=== PATIENT | female | born 1970 | race Caucasian/White ===

== ENCOUNTER 2022-02-14 18:27 | Emergency (ER) | payer OTHER, SELFPAY ==
[2022-02-14 18:41] VITALS: BP 117/80; PULSE 98; RESP 18; TEMP 36.4; O2SAT 98; BMI 34.4
--- NOTE | 2022-02-14 19:50 | CRLHL7_ITS ---
For Patients: As a result of the Century Cures Act, medical imaging exams and procedure reports are released immediately into your electronic medical record. You may view this report before your referring provider. If you have questions, please contact your health care provider. HISTORY: Left leg pain and swelling. TECHNIQUE: Ultrasound of the left lower extremity deep veins using bojorquez-scale, color Doppler, and spectral Doppler. COMPARISON: None. FINDINGS: Left: Common femoral, femoral, and popliteal veins are patent and compressible with normal response to augmentation. Deep femoral vein is patent and compressible. - Posterior tibial vein is patent and compressible with normal response to augmentation. Peroneal vein is patent and compressible. - Proximal greater saphenous vein is patent and compressible. --- Right: Common femoral vein is patent and compressible with normal response to augmentation. IMPRESSION: No left lower extremity DVT. Dictated by Tyler Escobar MD @ 02/14/2022 8:48:44 PM (Electronically Signed)
--- NOTE | 2022-02-14 19:51 | ED_ITS ---
HPI - Extremity Injury (Lower) General Chief Complaint: Extremity Pain/Injury, Lower Stated Complaint: possible blood clot in L back knee Time Seen by Provider: 02/14/22 19:42 Source: patient Mode of arrival: ambulatory Limitations: no limitations History of Present Illness HPI Narrative: 51-year-old female presents to the emergency department 5 days postop from a back surgery, she proudly reports that this was her 54th surgery. She has been noticing 1 day of swelling and paresthesias behind her left knee with increasing tenderness, concerned with a possible blood clot. She has no prior history of DVT nor PE. Not noting any fever, no shortness of breath. She did not have paresthesias in this area prior to surgery. She does not take any anticoagulants. No joint swelling, no fall or injury. No tenderness in the knee itself. No swelling in the ankle, hip or other joints. She does have a notable history of peripheral neuropathy, type 2 diabetes, hypertension. For medications and allergies are quite extensive and reviewed in our medical records, she confirms that these are correct. Socially with no pertinent travel, recent hospital discharge noted because of outpatient surgery ROS is otherwise negative times 12 systems today per her report Related Data Home Medications Medication Instructions Recorded Confirmed Tagamet 02/14/22 clobetasol-emollient 0.05 % topical 02/14/22 topical cream cyclobenzaprine 10 mg tablet mg 02/14/22 duloxetine 30 mg capsule,delayed mg PO 02/14/22 release duloxetine 60 mg capsule,delayed mg PO 02/14/22 release exenatide microspheres 2 mg/0.85 mg subcut 02/14/22 mL subcutaneous auto-injector ([employer]) fluconazole 02/14/22 hydromorphone 4 mg tablet mg 02/14/22 lisinopril 10 mg tablet mg 02/14/22 melatonin 02/14/22 ondansetron 4 mg disintegrating mg 02/14/22 tablet pregabalin 50 mg capsule mg 02/14/22 rosuvastatin 5 mg tablet mg 02/14/22 topiramate 50 mg tablet mg 02/14/22 Allergies Allergy/AdvReac Type Severity Reaction Status Date / Time adhesive Allergy Unknown Verified 02/14/22 18:51 Esomeprazole Allergy Severe throat Uncoded 02/14/22 18:51 swelling Propanolol Allergy Severe seizure Uncoded 02/14/22 18:51 Fentanyl Allergy Intermediate Swelling Uncoded 02/14/22 18:51 of Lip/Tongue/Throat Hydrocodone Allergy Intermediate Uncoded 02/14/22 18:51 HYDROCODONE-ACETAMINOPHEN Allergy Intermediate itching Uncoded 02/14/22 18:51 Metronidazole Allergy Intermediate vomitting Uncoded 02/14/22 18:51 Oxycodone Allergy Intermediate Uncoded 02/14/22 18:51 ASPIRIN, BUFFERED Allergy Unknown Uncoded 02/14/22 18:51 CANINE PROTEIN CONTAINING Allergy Unknown Uncoded 02/14/22 18:51 PRODUCTS CATS (FUR, DANDER, SALIVA) Allergy Unknown Uncoded 02/14/22 18:51 DUST MITES Allergy Unknown Uncoded 02/14/22 18:51 HYALURONATE Allergy Unknown Uncoded 02/14/22 18:51 Maple flavor Allergy Unknown Uncoded 02/14/22 18:51 Metformin Allergy Unknown Uncoded 02/14/22 18:51 NITROIMIDAZOLES Allergy Unknown Uncoded 02/14/22 18:51 OXYCODONE-ACETAMINOPHEN Allergy Unknown Uncoded 02/14/22 18:51 Penicillin Allergy Unknown Uncoded 02/14/22 18:51 Primidone Allergy Unknown Uncoded 02/14/22 18:51 Propranolol Allergy Unknown Uncoded 02/14/22 18:51 Ragweed pollen Allergy Unknown Uncoded 02/14/22 18:51 SUNLIGHT Allergy Unknown Uncoded 02/14/22 18:51 PFSH PFSH Social History Smoking Status: Never smoker Do you use any of these nicotine containing products: None Second hand tobacco smoke exposure: No How often do you have a drink containing alcohol: never How often do you have six or more drinks on one occasion: Never AUDIT-C Alcohol total score: 0 Non-prescribed substance use: denies use service: No Exam Const: Vital Signs, click to edit/add: Vital Signs - 24 hr 02/14/22 18:41 Temperature 97.6 F Pulse Rate [Pulse Oximeter] 98 Respiratory Rate 18 Blood Pressure [Ri ght Upper Arm] 117/80 Pulse Oximetry 98 Oxygen Delivery Me thod Room Air Documenting provider has reviewed patient's vital signs: yes Common normals: no apparent distress General appearance: cooperative HENMT: Mouth: oral and palatal mucosa normal Throat: posterior oropharynx normal Eye: Common normals: conjunctivae normal and no scleral icterus Conjunctiva: conjunctiva(e) normal Resp: Common normals: normal respiratory effort and clear to auscultation bilaterally Effort & inspection: able to speak in complete sentences Auscultation: clear to auscultation bilaterally Cardio: Common normals: regular rate, regular rhythm, S1 normal heart sound, S2 normal heart sound and no murmurs Rate: regular rate Rhythm: regular rhythm Heart sounds: S1 normal and S2 normal Extremity: Other: right leg grossly normal in appearance, left leg is also grossly normal in appearance. The left knee has normal range of motion, no effusion, no redness. There is no palpable cords in either calf. Negative Homans bilaterally. Neuro: Other: Grossly normal strength and movement in lower extremities. Psych: Common normals: mental status grossly normal Insight: fair Judgement: fair Skin: Common normals: no rashes or lesions noted General skin exam: no rashes or lesions noted Course Vital Signs Vital signs: Initial Vital Signs Temperature 97.6 F 02/14/22 18:41 Temperature Source Temporal Artery Scan 02/14/22 18:41 Pulse Rate 98 02/14/22 18:41 Respiratory Rate 18 02/14/22 18:41 Blood Pressure 117/80 02/14/22 18:41 Blood Pressure Mean 92 02/14/22 18:41 Blood Pressure Position Sitting 02/14/22 18:41 Pulse Oximetry 98 02/14/22 18:41 Oxygen Delivery Method 02/14/22 18:41 Vital Signs Temperature 97.6 F 02/14/22 18:41 Pulse Rate 98 02/14/22 18:41 Respiratory Rate 18 02/14/22 18:41 Blood Pressure 117/80 02/14/22 18:41 Pulse Oximetry 98 02/14/22 18:41 Oxygen Delivery Method 02/14/22 18:41 Temperature 97.6 F 02/14/22 18:41 Pulse Rate 98 02/14/22 18:41 Respiratory Rate 18 02/14/22 18:41 Blood Pressure 117/80 02/14/22 18:41 Pulse Oximetry 98 02/14/22 18:41 Oxygen Delivery Method 02/14/22 18:41 MDM - Extremity Injury (Lower) MDM Narrative Medical decision making narrative: Differential diagnosis including DVT, paresthesias secondary to back surgery with radiculopathy, new area of peripheral neuropathy. Lower suspicion for any intra-articular problems within the knee or muscle strain. Counseled patient that I suspect that this is more surgically related and seems quite mild and with no motor deficits. I would recommend venous Doppler ultrasound added patient was agreeable for this. Awaiting results Update: Negative ultrasound of the lower legs, discussed findings with patient. Suspect that there is some mild neurological impingement inflammation postoperatively, do not suspect that this is worrisome nor long-term for her. She will notify her surgeon and let him know that the ultrasound was negative. Alarm symptoms reviewed and all questions answered. Imaging Data Venous US: My impression: Negative for DVT Radiologist's impression: Negative for DVT Discharge Plan Discharge Clinical Impression: Leg swelling Patient Disposition: Home w/ Parent or Adult Condition: Stable Instructions: Swollen Knee Joint (ED) Additional Instructions: Thankfully, the ultrasound does not show any signs of blood clot. This is great news. I suspect that the abnormal sensation and perceived swelling is more so related to healing after your surgery and some inflammation on the nerves that come from your back. I do not suspect that this will be long-term for you but you should notify your surgeon. Please make sure you let them know that the ultrasound was negative for blood clots. It is okay to apply ice or heat packs if this is soothing. Continue the pain medicines that you have previously been prescribed. Keep all of your follow-up appointment as are currently scheduled. Activity Level: Activity as Tolerated Discharge Diet: Regular Prescriptions: No Action cyclobenzaprine 10 mg tablet lisinopril 10 mg tablet Label Comments: TAKE 1 TABLET BY MOUTH EVERY DAY hydromorphone 4 mg tablet ondansetron 4 mg tablet,disintegrating clobetasol-emollient 0.05 % cream TOPICAL Label Comments: USE EVERY 3RD NIGHT rosuvastatin 5 mg tablet topiramate 50 mg tablet Label Comments: TAKE 1 TABLET BY MOUTH EVERY MORNING AND 3 TABLETS BY MOUTH EVERY EVENING duloxetine 30 mg capsule,delayed release(DR/EC) PO Label Comments: TAKE 1 CAPSULE BY MOUTH DAILY WITH 60 MG duloxetine 60 mg capsule,delayed release(DR/EC) PO Label Comments: TAKE 1 CAPSULE BY MOUTH DAILY WITH 30 MG DOSE pregabalin 50 mg capsule Label Comments: TAKE 1 CAPSULE BY MOUTH DAILY AT 5-6 PM AND 1 CAPSULE AT 9-10 PM Bydureon BCise 2 mg/0.85 mL auto-injector SUBCUT Label Comments: INJECT 0.85 ML SUBCUTANEOUS ONCE WEEKLY Tagamet fluconazole melatonin Follow Up/Referrals: Octaviano Tineo MD [Primary Care Provider] - Stand Alone Forms: [employer] Info Instructions
[2022-02-14 21:53] VITALS: BP 105/61; PULSE 81; RESP 16; O2SAT 98
== END 2022-02-14 21:54 | disposition home or self-care (01) ==
PROVIDERS: Emergency Provider Family Medicine; PCP Surgery
DX: R22.42 Localized swelling, mass and lump, left lower limb (principal)
CPT/HCPCS: 93971; 99282; 99283

== ENCOUNTER 2022-05-20 12:55 | Outpatient (CLI) | payer OTHER, SELFPAY ==
--- NOTE | 2022-05-20 13:00 | MR_ITS ---
[address] [address] Phone:?[phone] Fax:?[phone] Referring Physician Information: Irving Harrison M.D. [address] [facility] [address] Phone:?[phone] Fax:?[phone] Patient:Jessica Li D.O.B:?1970 Sex:?Female Phone:?[phone] [facility] MRN:?[id number] Exam Date:?05/20/2022 ? EXAM: MRI of the LEFT KNEE, without contrast CLINICAL: Left knee pain. COMPARISONS: None available. TECHNICAL: MR sequences of the left knee: sagittals: PD, PDFS coronals: PD, T2FS axials: PD, PDFS SEDATION: None. CONTRAST: None. FINDINGS: Evaluation of multiple sequences is relatively limited by motion artifact. Ligaments: ACL: Intact and unremarkable. PCL: Intact and unremarkable. MCL: Intact and unremarkable. LCL: Intact and unremarkable. Posterolateral corner: Popliteus, biceps femoris, iliotibial band, and the popliteofibular ligament appear intact. Posteromedial corner: Semimembranosus, pes anserine tendons and posterior oblique ligament appear intact. Extensor mechanism: Patellar tendon: Intact, without tendinopathy. Quadriceps tendon: Intact, without tendinopathy. Retinacula: Medial and lateral retinacula are intact. Fat pads: Unremarkable infrapatellar Hoffa's, quadriceps and prefemoral fat pads. Patellofemoral joint: Patella: There is grade 3-4 chondral loss involving the patellar median ridge with mild underlying subchondral reactive edema. Trochlea: No significant chondromalacia. Medial compartment: Medial meniscus: Minimal degenerative fraying/tearing involving the free edge of the posterior horn on sagittal series 6 images 11-12. There is mild increased signal involving the peripheral undersurface of the body segment on coronal series 8 image 17, only seen on the right single image and therefore not completely meeting MRI criteria for tearing. Medial cartilage: Full-thickness chondral loss is seen to involve the posterior nonweightbearing medial femoral condyle with trace underlying subchondral reactive edema. Grade 3-4 chondral loss is also seen to involve the medial tibial plateau. Lateral compartment: Lateral meniscus: No evidence of discrete meniscal tear or meniscal displacement. Lateral cartilage: There is heterogeneity and deep chondral fissuring involving the lateral tibial plateau cartilage. Grade 2-3 chondral thinning involving the weightbearing lateral femoral condyle. Knee joint: Effusion: Physiologic left knee effusion. Intra-articular bodies:?No convincing bodies identified. Popliteal cyst: None. Bones: No suspicious bone marrow signal alteration or fracture line. IMPRESSION: 1. Minimal degenerative fraying/tearing involving the free edge of the posterior horn medial meniscus. Mild increased signal involving the peripheral undersurface of the body segment medial meniscus is only seen on a single image and therefore not completely meeting MRI criteria for tearing, likely reflective of mild fraying. 2. Tricompartmental chondromalacia/chondral loss as above. 3. No evidence of ligamentous injury or fracture. [facility] Electronically signed on 05/20/2022 3:56:00 PM by Musa Hadley D.O.
== END 2022-05-20 12:56 | disposition home or self-care (01) ==
LOC: MRI 12:56
PROVIDERS: PCP Surgery; Visit Provider Family Medicine
DX: M25.562 Pain in left knee (principal); M23.222 Derangement of posterior horn of medial meniscus due to old tear or injury, left knee; M94.262 Chondromalacia, left knee
CPT/HCPCS: 73721

== ENCOUNTER 2022-10-04 06:24 | Outpatient (CLI) | payer OTHER, SELFPAY ==
--- NOTE | 2022-10-04 09:09 | W.ANESCHARGE ---
Anesthesia Charges Start Date/Time Anesthesia Start Date: 10/04/22 Anesthesia Start Time: 08:40 Stop Date/Time Anesthesia Stop Date: 10/04/22 Anesthesia Stop Time: 09:04
== END 2022-10-04 06:25 | disposition home or self-care (01) ==
LOC: OP CLINIC 06:24
PROVIDERS: PCP Surgery; Visit Provider Internal Medicine Gastroenterology
DX: R19.5 Other fecal abnormalities (principal)
CPT/HCPCS: 45378; 811; J2704

== ENCOUNTER 2022-10-19 13:42 | Outpatient (CLI) | payer OTHER, SELFPAY | END 2022-10-19 13:43 | disposition home or self-care (01) | LOC: INJ CL 13:42 | PROVIDERS: PCP Surgery; Visit Provider Family Medicine | DX: M17.11 Unilateral primary osteoarthritis, right knee (principal); M25.561 Pain in right knee | CPT/HCPCS: 64454 ==

== ENCOUNTER 2022-11-09 12:50 | Outpatient (CLI) | payer OTHER, SELFPAY ==
--- NOTE | 2022-11-09 14:31 | W.ANESCHARGE ---
Anesthesia Charges Start Date/Time Anesthesia Start Date: 11/09/22 Anesthesia Start Time: 13:48 Stop Date/Time Anesthesia Stop Date: 11/09/22 Anesthesia Stop Time: 14:33
== END 2022-11-09 12:51 | disposition home or self-care (01) ==
LOC: RAD 12:51
PROVIDERS: PCP Surgery; Visit Provider Family Medicine
DX: M17.11 Unilateral primary osteoarthritis, right knee (principal); M25.561 Pain in right knee
CPT/HCPCS: 1991; 64624; J2704

== ENCOUNTER 2024-11-11 15:51 | Emergency (ER) | payer OTHER, SELFPAY ==
--- OUTSIDE RECORDS SUMMARY | 2020-11-25 03:42 | XMS_ITS | Continuity of Care Document ---
Author Organization [facility] Address [address] [address] [place] [address] Phone Care Team Providers Care Property Utilization Manager Name Role Phone Walter Sharp MD Unavailable Unavailable Allergies, Adverse Reactions, Alerts Substance Reaction Status Criticality OXYCODONE HCL Active No Information HYDROCODONE BITARTRATE Active No In formation acetaminophen Active No Information hylan G-F 20 edema Active No Information Nitroimidazoles Nausea/vomiting Active No Inform ation oxycodone Itching Active No Information adhesive tape Rash Active No Information hydrocodone Itching Active No Information esomeprazole Anaphylactic shock Active No Inform ation aspirin Nausea Active No Information Penicillins Rash Active No Information WARNIN allergy(ies) could not be collected because the type is not supported. Please contact the source practice for further details. Medications Medication Instructions Dosage Effective Dates (start - stop) Status Comments acetaminophen 325 mg tablet take as needed - Active citalopram 10 mg tablet take 3 Tablet by oral route every day 30 MG - Active desoximetasone 0.05 % topical cream apply by topical route 2 times every day a thin layer to the affected area(s) ; rub in gently and completely 0.00 - Active estradiol 2 mg tablet take 1 Tablet by oral route every day 2 MG - Active FISH OIL (unknown strength) take daily Not Available - Active fluticasone 50 mcg/actuation nasal spray,suspension spray 1 Tillar(s) by Intranasal route every day in each nostril 1 Tillar(s) - Active hydrochlorothiazide 25 mg tablet take 1 tablet by oral route every day 25 MG - Active hydromorphone 4 mg tablet take 1 - 1.5 Tablet by oral route every 4 hours as needed 4 MG - Active Vistaril 25 mg capsule take 1 capsule by oral route 4 times every day - Active TURMERIC (unknown strength) take 1 capsule by oral route every day Not Available - Active 800-1022 mg daily meloxicam 15 mg tablet take 1 tablet by oral route every day 15 MG - Active ZOFRAN (unknown strength) take 1 tablet by ORAL route every 4 hours as needed Not Available - Active Patanol 0.1 % eye drops instill 1 drop by ophthalmic route 2 times every day into affected eye(s) at an interval of 6 to 8 hours - Active Vitamin tablet take 1 tablet by oral route every day - Active Zantac 150 mg tablet take 1 Tablet by ORAL route 2 times every day at bedtime - Active Zanaflex 4 mg tablet take 0.5-1 Tablet by oral route every 6 hours as needed - Active VITAMIN D2 (unknown strength) take 1 capsule by oral route every week Not Available - Active 2000 unit capsule Procedures Procedure Date Colonoscopy Flex; Dx (sep Pro) 17 Offic Cons New/estab Mod Medical nutrition therapy, initial, each 15 minutes Offic/outpt E&m Estab Mod-hi 2 14 Luna PH Monitor Luna Placement Ugi Endo; Dx W/wo Collec Specm 14 Offic Cons New/estab Mod Advance Directives Directive Yes / No Effective Date File Name No Information Encounters Encounter Description Practice Location Reason(s) For Visit Diagnoses Date Provider Providers Copied on Encounter [facility] NOLBERTO BROWN [address] [address], [place], [id number], [place] tel:[phone] [facility] No Information 1 Aron Watson. [address] [facility], [facility] [address], [place], [place], [id number], [place]. tel:[phone] [facility], [address] [address], [place], [id number], [place] tel:[phone] [facility] Hemorrhoids, externalMelenaDi arrhea, unspecifiedConst ipation, unspecifiedResid ual hemorrhoidal skin tags 7 Donna Aguila. [address] [facility], [facility] [address], [place], [address], [place]. tel:[phone] Referring Provider: Referral Self, USE FOR SELF REFERRALS. Offic Cons New/estab Mod [facility], [address] [address], [place], [id number], [place] tel:[phone] [facility] GI Symptoms or Concerns (chief complaint) Gastroesophageal reflux disease, esophagitis presence not specifiedHematoc heziaDiarrhea, unspecified typeDietary counseling and surveillanceElev ated blood-pressure reading, w/o diagnosis of htn 7 Donna Aguila. [address] [facility], [facility] [address], [place], [id number], [place]. tel:[phone] Kalyan Pike MD. tel:[phone] erring Provider: Octaviano Plata, [address] [place] [address], [address]. tel:[phone] [facility], [address] [address], [place], [address], [place] tel:[phone] [facility] Gastroesophageal Reflux 4 Gio Truong. [address] [facility], [facility] [address], [place], [place], [id number], [place]. tel:[phone] Referring Provider: Brandt Scruggs MD, [address] [place] [address], [address]. tel:[phone] Offic/outpt E&m Estab Mod-hi 2 [facility], [address] [address], [place], [id number], [place] tel:[phone] [facility] CoughGastroesoph ageal Reflux 4 No Information Referring Provider: Brandt Scruggs MD, [address] [place] [address], [place], [address]. tel:[phone] [facility], [address] [address], [place], [address], [place] tel:[phone] [facility] Gastroesophageal Reflux 4 Tiffanie Dinh. [address] [facility], [facility] [address], [place], [address], [place]. tel:[phone] Referring Provider: Referral Self, USE FOR SELF REFERRALS. [facility], [address] [address], [place], [place], [address], [place] tel:[phone] [facility] Gastroesophageal RefluxDysphagia, Unspecified 4 Tiffanie Dinh. [address] [place] [address], [facility] [address], [place], [address], [place]. tel:[phone] Referring Provider: Fransisca Melara, [address], [place], [address]. tel:[phone] Offic Cons New/estab Mod [facility], [address] [address], [place], [place], [id number], tel:[phone] [facility] Gastroesophageal RefluxDysphagia, Unspecified 3 Tiffanie Dinh. [address] [facility], [facility] [address], [place], [address], [place]. tel:[phone] Referring Provider: Fransisca Melara, [address], [place], [address]. tel:[phone] Family History Family Member Type Diagnosis Age At Onset Sister Problem (finding) Hepatitis Father Problem (finding) Brother Problem (finding) GERD Father Problem (finding) malignant neoplasm of l tacos Brother Problem (finding) Irritable bowel disease Mother Problem (finding) GERD Immunizations Vaccine Date Status Comments zoster vaccine recombinant administered N ote: [facility] bi-directional interface ; Source: Other Registry SARS-COV-2 (COVID-19) vaccin e, mRNA, spike protein, LNP, preservative free, 30 mcg/0.3mL dose administered Note: [facility] bi-direct ional interface ; Source: Other Registry SARS-COV-2 (COVID-19) vaccin e, mRNA, spike protein, LNP, preservative free, 30 mcg/0.3mL dose administered Note: [facility] bi-direct ional interface ; Source: Other Registry Engerix-B administered Note: [facility] bi-d irectional interface ; Source: Other Registry Afluria Qd administered Note: [facility] bi-directional interface ; Source: Other Registry Engerix-B administered Note: [facility] bi-d irectional interface ; Source: Other Registry Pneumovax 23 administered Note: [facility] bi-d irectional interface ; Source: Other Registry Engerix-B administered Note: [facility] bi-d irectional interface ; Source: Other Registry Afluria Qd administered Note: [facility] bi-directional interface ; Source: Other Registry Afluria Qd administered Note: [facility] bi-directional interface ; Source: Other Registry Afluria Qd administered Note: [facility] bi-directional interface ; Source: Other Registry Afluria Qd administered Note: [facility] bi-directional interface ; Source: Other Registry Afluria Qd administered Note: [facility] bi-directional interface ; Source: Other Registry tetanus toxoid, reduced diphtheria toxoid, and acellular pertussis vaccine, adsorbed administered Note: [facility] b i-directional interface ; Source: Other Registry Novel [id number], all formulations administered Note: [facility] bi-direct ional interface ; Source: Other Registry Influenza, seasonal, injectable administe red Note: [facility] bi- directional interface ; Source: Other Registry Payers Payer name Insurance type Covered democrat ID Authoriza tion(s) No Information Social History Type Description Quantity Date Captured Comments Alcohol Use Details Unknown Caffeine Use Details Unknown Tobacco Use Status No Information Smoking Status No Information Sex Female Chief Complaint And Reason For Visit No Information Reason For Referral Reason For Referral No Information Plan Of Treatment Date Type Action Status Goal Lifestyle education regardin g diet completed Referral Ordered: referred to Colon and Rectal Surgery symptomatic hemorrhoids ordered Referral Ordered: Colonoscopy Appointment date/timeframe: 12/24/2016 ordered Referral Ordered: Xray Abdomen Complete Appointment date/timeframe: 11/08/2016 ordered History Of Present Illness Encounter Date Complaint History Of Prese nt Illness GI Symptoms or Concerns This is a 46-year-old female who has had longstanding history of reflux. She apparently has had an anaphylactic reaction to a PPI in the past, thus, she has only been on H2 blockers. Please refer to the previous Esophageal Clinic note from 05/11/2013. She has had previous upper endoscopies including esophageal biopsies that have been unremarkable. Luna testing confirmed reflux. 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 Apparently, she has not been able to tolerate esophageal manometry study because she has a significant gag. She continues to have problems with daily dysphagia. This happens every time that she eats and she states this has been happening since she is been a child.Recently, she was switched from Pepcid to ranitidine by her primary physician. She is taking 600 mg b.i.d. She feels that that has not changed her symptoms from one H2 jose to the other. She continues to Functional Status Date Functional Assessmen t No Information Instructions Date Instruction Additional Infor mation High Fiber Diet Related to Hemor rhoids, external Hemorrhoids Related to Hemor rhoids, external Lifestyle education regarding di et Related to Dietary counseling and surveillance Assessments Type Assessment Date No Information Patient Care Teams Name Effective Dates (start - stop) Status Members No Information
--- OUTSIDE RECORDS SUMMARY | 2020-11-25 03:42 | XMS_ITS | Continuity of Care Document ---
Author Organization [facility] Address [address] [address] [place] [address] Phone Care Team Providers Care Grade Checker Name Role Phone Walter Sharp MD Unavailable [...] fluticasone 50 mcg/actuation nasal spray,suspension spray 1 Spicer(s) by Intranasal route every day in each nostril 1 Spicer(s) - Active hydrochlorothiazide 25 mg tablet take [...] Encounter [facility] NOLBERTO BROWN [address] [address], [place], [id number], [place] tel:[phone] [facility] No Information 1 Aron Watson. [address] [facility], [facility] [address], [place], [place], [id number], [place]. tel:[phone] [facility], [address] [address], [place], [id number], [place] tel:[phone] [facility] Hemorrhoids, externalMelenaDi arrhea, unspecifiedConst ipation, unspecifiedResid ual hemorrhoidal skin tags 7 Donna Aguila. [address] [facility], [facility] [address], [place], [id number], [place]. tel:[phone] Referring Provider: Referral Self, USE FOR SELF REFERRALS. Offic Cons New/estab Mod [facility], [address] [address], [place], [id number], [place] tel:[phone] [facility] GI Symptoms or Concerns (chief complaint) Gastroesophageal reflux disease, esophagitis presence not specifiedHematoc heziaDiarrhea, unspecified typeDietary counseling and surveillanceElev ated blood-pressure reading, w/o diagnosis of htn 7 Donna Aguila. [address] [facility], [facility] [address], [place], [address], [place]. tel:[phone] Kalyan Pike MD. tel:[phone] erring Provider: Octaviano Plata, [address] [place] [address], [address]. tel:[phone] [facility], [address] [address], [place], [address], [place] tel:[phone] [facility] Gastroesophageal Reflux 4 Gio Truong. [address] [facility], [facility] [address], [place], [place], [address], [place]. tel:[phone] Referring Provider: Brandt Scruggs MD, [address] [place] [address], [address]. tel:[phone] Offic/outpt E&m Estab Mod-hi 2 [facility], [address] [address], [place], [id number], [place] tel:[phone] [facility] CoughGastroesoph ageal Reflux 4 No Information Referring Provider: Brandt Scruggs MD, [address] [place] [address], [place], [address]. tel:[phone] [facility], [address] [address], [place], [address], [place] tel:[phone] [facility] Gastroesophageal Reflux 4 Tiffanie Dinh. [address] [facility], [facility] [address], [place], [address], [place]. tel:[phone] Referring Provider: Referral Self, USE FOR SELF REFERRALS. [facility], [address] [address], [place], [place], [address], [place] tel:[phone] [facility] Gastroesophageal RefluxDysphagia, Unspecified 4 Tiffanie Dinh. [address] [place] [address], [facility] [address], [place], [address], [place]. tel:[phone] Referring Provider: Fransisca Melara, [address], [place], [address]. tel:[phone] Offic Cons New/estab Mod [facility], [address] [address], [place], [place], [id number], tel:[phone] [facility] Gastroesophageal RefluxDysphagia, Unspecified 3 Tiffanie Dinh. [address] [facility], [facility] [address], [place], [id number], [place]. tel:[phone] Referring Provider: Fransisca Melara, [address], [place], [address]. tel:[phone] Family History Family Member Type Diagnosis Age [...] i-directional interface ; Source: Other Registry Novel [id number], all formulations administered Note: [facility] bi-direct ional interface ; Source: Other Registry Influenza, seasonal, injectable administe red Note: [facility] bi- directional interface ; Source: Other Registry Payers Payer name Insurance type Covered green party ID Authoriza tion(s) No Information Social History [...]
--- OUTSIDE RECORDS SUMMARY | 2024-10-10 07:55 | XMS_ITS | Encounter Summary ---
Author Organization [facility] Address [address] [place] [address] Care Team Providers Care Claims Adjuster Supervisor Name Role Phone Terrance Glaser MD Unavailable [phone] Octaviano Tineo MD Primary Care Provider [phone] Reason for Referral * (Routine) - Open Specialty Diagnoses / Procedures Referred By Contac t Referred To Contact Procedures Diet: Level 7 Regular Lara Cox APRN, CNP [address] [address] Phone: tel: fax: Referral ID Status Reason Start Date Expiration Date Visits Re quested Visits Authorized [id number] Open 10/12/2024 1 1 * (Routine) - Open Specialty Diagnoses / Procedures Referred By Contac t Referred To Contact Procedures DIET and BOWEL PROGRAM: Lara Cox APRN, CNP [address] [address] Phone: tel: fax: Referral ID Status Reason Start Date Expiration Date Visits Re quested Visits Authorized [id number] Open 10/12/2024 1 1 * (Routine) - Open Specialty Diagnoses / Procedures Referred By Contac t Referred To Contact Procedures Education Lara Cox APRN, CNP [address] [address] Phone: tel: fax: Referral ID Status Reason Start Date Expiration Date Visits Re quested Visits Authorized [id number] Open 10/12/2024 1 1 * (Routine) - Open Specialty Diagnoses / Procedures Referred By Contac t Referred To Contact Procedures Exercise instructions Lara Cox APRN, CNP [address] [address] Phone: tel: fax: Referral ID Status Reason Start Date Expiration Date Visits Re quested Visits Authorized [id number] Open 10/12/2024 1 1 * (Routine) - Open Specialty Diagnoses / Procedures Referred By Contac t Referred To Contact Procedures Temperature >101 (38.3 degrees Celsius) Lara Cox APRN, CNP [address] [address] Phone: tel: fax: Referral ID Status Reason Start Date Expiration Date Visits Re quested Visits Authorized [id number] Open 10/12/2024 1 1 * (Routine) - Open Specialty Diagnoses / Procedures Referred By Contac t Referred To Contact Procedures Severe uncontrolled pain Lara Cox APRN, CNP [address] [address] Phone: tel: fax: Referral ID Status Reason Start Date Expiration Date Visits Re quested Visits Authorized [id number] Open 10/12/2024 1 1 * (Routine) - Open Specialty Diagnoses / Procedures Referred By Contac t Referred To Contact Procedures Increased tenderness or swelling Lara Cox APRN, CNP [address] [address] Phone: tel: fax: Referral ID Status Reason Start Date Expiration Date Visits Re quested Visits Authorized [id number] Open 10/12/2024 1 1 * (Routine) - Open Specialty Diagnoses / Procedures Referred By Contac t Referred To Contact Procedures Persistent nausea or vomiting Lara Cox APRN, CNP [address] [address] Phone: tel: fax: Referral ID Status Reason Start Date Expiration Date Visits Re quested Visits Authorized [id number] Open 10/12/2024 1 1 * (Routine) - Open Specialty Diagnoses / Procedures Referred By Contac t Referred To Contact Procedures Numbness/pain in extremity Lara Cox APRN, CNP [address] [address] Phone: tel: fax: Referral ID Status Reason Start Date Expiration Date Visits Re quested Visits Authorized [id number] Open 10/12/2024 1 1 * (Routine) - Open Specialty Diagnoses / Procedures Referred By Contac t Referred To Contact Procedures Difficulty breating, headache, or visual disturbance Lara Cox APRN, CNP [address] [address] Phone: tel: fax: Referral ID Status Reason Start Date Expiration Date Visits Re quested Visits Authorized [id number] Open 10/12/2024 1 1 * (Routine) - Open Specialty Diagnoses / Procedures Referred By Lino t Referred To Contact Procedures Chills Lara Cox APRN, CNP [address] [address] Phone: tel: fax: Referral ID Status Reason Start Date Expiration Date Visits Re quested Visits Authorized [id number] Open 10/12/2024 1 1 * (Routine) - Open Specialty Diagnoses / Procedures Referred By Lino t Referred To Contact Procedures Any questions or concerns Lara Cox APRN, CNP [address] [address] Phone: tel: fax: Referral ID Status Reason Start Date Expiration Date Visits Re quested Visits Authorized [id number] Open 10/12/2024 1 1 Reason for Visit * Inpatient Admission (Routine) Specialty Diagnoses / Procedures Referred By Lino conway Referred To Contact Diagnoses Cervical spondylosis without myelopathy Spinal stenosis in cervical region Cervical spondylosis without myelopathy [M47.812] Spinal stenosis in cervical region [M48.02] Procedures [place] IMPLTJ NSTIM ELTRDS PLATE/PADDLE EDRL INSJ/RPLCMT SPINAL NPG/RCVR POCKET CRTJ&CONNJ CERVICAL LAMINECTOMY FOR TRIAL OF SPINAL CORD STIMULATOR PADDLE ELECTRODES WITH NEUROMONITORING Referral ID Status Reason Start Date Expiration Date Visits Re quested Visits Authorized [id number] 1 1 Encounter Details Date Type Department Care Team (Latest Contact Info) Description 10/10/2024 7:55 AM CDT - 10/12/2024 4:53 PM CDT Hospital Encounter [address] [place] [address] Horacio Mcdonald MD [address] [address] Gemma Serna MD [address] [place] [address] Cervical radiculopathy Discharge Disposition: Returning Home/Self Care Social History Tobacco Use Types Packs/Day Years Used Date Smoking Tobacco: Former Cigarettes Q uit: 1996 Smokeless Tobacco: Never Alcohol Use Standard Drinks/Week Comments Never 0 (1 standard drink = 0.6 oz pur e alcohol) [facility] Utilities Answer Date Recorded In the past 12 months has e electric, gas, oil, or water company threatened to shut off services in your home? No 10/10/2024 Humiliation, Afraid, Rape, and Kick questionnair e Answer Date Recorded Within the last year, have y ou been afraid of your partner or ex-partner? No 10/10/2024 Within the last year, have y ou been humiliated or emotionally abused in other ways by your partner or ex-partner? No Within the last year, have y ou been kicked, hit, slapped, or otherwise physically hurt by your partner or ex-partner? No 10/10/2024 Within the last year, have y ou been raped or forced to have any kind of sexual activity by your partner or ex-partner? No 10/10/2024 Hunger Vital Sign Answer Date Recorded Within the past 12 months, y ou worried that your food would run out before you got the money to buy more. Never true 10/11/19 25 Within the past 12 months, t he food you bought just didn't last and you didn't have money to get more. Never true 10/10/2024 PRAPARE - Transportation Answer Date Re corded In the past 12 months, has l ack of transportation kept you from medical appointments or from getting medications? No 09/13 In the past 12 months, has l ack of transportation kept you from meetings, work, or from getting things needed for daily living? No 10/10/2024 Housing Stability Vital Sign Answer Benoit e Recorded In the last 12 months, was t here a time when you were not able to pay the mortgage or rent on time? No 10/10/2024 In the past 12 months, how m any times have you moved where you were living? 0 10/10/2024 At any time in the past [address] [facility], were you homeless or living in a snf (including now)? No 10/10/2024 Comments No Sex and Gender Information Value Date Recorded Sex Assigned at Not on file Legal Sex Female 4:24 PM CDT Gender Identity Not on file Sexual Orientation Not on file Occupation Industry Job Start Date Job End Date Disabled Not on file Not on file Not on file documented as of this encounter Last Filed Vital Signs Vital Sign Reading Time Taken Comments Blood Pressure 111/67 10/12/2024 2:37 PM CDT Pulse 95 10/12/2024 2:37 PM CDT Temperature 36.9 C (98.5 F) 10/12/2024 2:37 PM CDT Respiratory Rate 18 10/12/2024 2:37 PM CDT Oxygen Saturation 95% 10/12/2024 2:37 PM CDT Inhaled Oxygen Concentration - - Weight 97.5 kg (215 lb) 10/10/2024 3:34 PM CDT Height 165.1 cm (5' 5) 10/10/2024 3:34 PM CDT Body Mass Index 35.78 10/10/2024 3:34 PM CDT documented in this encounter Discharge Summaries * Lara Cox, BATTERBOARD SETTER, DEPUTY TREASURER - 10/12/2024 10:33 AM CDT Images from the original note were not included. HOSPITAL DISCHARGE SUMMARY Patient Name: Rosario Li Date of : 1970 Age: 54 y.o. Primary Physician: Octaviano Tineo MD Admission Date: 10/10/2024 Discharge Date: 10/12/2024 She will be discharged on 10/12/2024 to home PRINCIPAL DISCHARGE DIAGNOSIS: Cervical spondylosis without myelopathy [M47.812] Spinal stenosis in cervical region [M48.02] Principal Problem: Cervical radiculopathy PROCEDURES PERFORMED DURING HOSPITALIZATION: Procedure(s): CERVICAL LAMINECTOMY FOR TRIAL OF SPINAL CORD STIMULATOR PADDLE ELECTRODES WITH NEURO-MONITORING (N/A) Dr. Horacio Mcdonald BRIEF HOSPITAL COURSE: This 54 y.o. female was admitted for the above surgery. The patient underwent the above procedure without complications. Standard prophylactic antibiotics were administered andthe patient received DVT prophylaxis per service protocol. The patient's pain was initially controlled on intravenous pain medications and then weaned to oral medications prior to discharge. The patients pain was well controlled and the patient had met all physical therapy goals prior to discharge.Patient was discharged on a Regular diet, no brace, and opioid medications for pain control. Discharge in stable condition. She will follow up as scheduled for stage 2 procedure. PERTINENT FINDINGS/RESULTS AT DISCHARGE: BP (!) 116/58 Pulse 85 Temp 98.9 ??F (37.2 ??C) Resp 17 Ht 5' 5 (1.651 m) Wt 97.5 kg (215 lb) SpO2 96% BMI 35.78 kg/m?? Wound: Surgical/Procedure Site Incision Posterior Neck;Back (Active) First Observed/Origin Date/First Observed/Origin Time: 10/10/24 1154 Primary Wound Type: Surgical/Procedure Site Incision Type: Incision Orientation: Posterior Location: Neck;Back Description: incision sites x2 Wound: Surgical/Procedure Site Incision Right Head (Active) First Observed/Origin Date/First Observed/Origin Time: 10/10/24 1253 Primary Wound Type: Surgical/Procedure Site Incision Type: Incision Orientation: Right Location: Head Latest Laboratory Results: Admission on 10/10/2024 Component Date Value Ref Range Status GLUCOSE WB METER 10/10/2024 118 (H) 60 - 100 mg/dL Final GLUCOSE WB METER 10/10/2024 139 (H) 60 - 100 mg/dL Final WBC 10/11/2024 9.6 4.3 - 10.8 K/uL Final RBC 10/11/2024 3.97 (L) 4.20 - 5.40 M/uL Final Hemoglobin 10/11/2024 12.5 12.0 - 16.0 gm/dL Final Hematocrit 10/11/2024 36.4 36.0 - 48.0 % Final MCV 10/11/2024 92 80 - 100 fL Final MCH 10/11/2024 32 27 - 33 pg Final MCHC 10/11/2024 34 33 - 36 gm/dL Final RDW 10/11/2024 13.3 11.5 - 14.5 % Final Platelet Count 10/11/2024 145 (L) 150 - 400 K/UL Final MPV 10/11/2024 10.3 6.5 - 12 fL Final Sodium 10/11/2024 142 136 - 145 mmol/L Final Potassium 10/11/2024 3.9 3.4 - 5.1 mmol/L Final Chloride 10/11/2024 110 (H) 98 - 108 mmol/L Final Carbon Dioxide 10/11/2024 22 20 - 31 mmol/L Final BUN (Urea Nitro) 10/11/2024 7 (L) 9 - 23 mg/dL Final Creatinine 10/11/2024 0.94 0.55 - 1.02 mg/dL Final Est GFR (CKD-EPI) 10/11/2024 >60.00 >60.00 mL/min/1.73m2 Final Glucose 10/11/2024 144 (H) 74 - 106 mg/dL Final Calcium, Serum 10/11/2024 8.4 (L) 8.7 - 10.4 mg/dL Final Anion Gap 10/11/2024 10.0 0.0 - 15.0 mmol/L Final Recent Labs 10/11/24 0703 WBC 9.6 RBC 3.97* HEMOGLOBIN 12.5 HEMATOCRIT 36.4 MCV 92 MCH 32 RDW 13.3 PLATELETCT 145* IMPORTANT PENDING TEST RESULTS: None CONDITION AT DISCHARGE: Stabilized DISCHARGE MEDICATIONS: Medication List START taking these medications lidocaine 5 % Oint ointment Commonly known as: XYLOCAINE Apply 1 Application to skin as needed (apply topically as needed for pain). CHANGE how you take these medications cyclobenzaprine 10 mg tablet Commonly known as: FLEXERIL Take 0.5-1 tablets (5-10 mg) by mouth three times a day as needed for muscle spasm. What changed: See the new instructions. pregabalin 50 mg capsule Commonly known as: LYRICA TAKE 1 CAPSULE BY MOUTH BETWEEN 5-6 PM AND TAKE 1 CAPSULE BY MOUTH BETWEEN 9-10 PM What changed: how much to take how to take this when to take this additional instructions CONTINUE taking these medications ascorbic acid (vitamin C) 250 mg tablet B-Complex with Vitamin C Tab CALCIUM 500 + D ORAL cholecalciferol (vitamin D3) 25 mcg (1000 unit) 25 mcg (1,000 unit) tablet Cimetidine 400 mg tablet clobetasol 0.05 % cream Commonly known as: TEMOVATE dulaglutide 0.75 mg/0.5 mL pen Commonly known as: Trulicity * DULoxetine 30 mg delayed release capsule Commonly known as: CYMBALTA * DULoxetine 60 mg delayed release capsule Commonly known as: CYMBALTA fluticasone propionate 50 mcg/actuation nasal spray Commonly known as: FLONASE HYDROmorphone 4 mg tablet Commonly known as: DILAUDID melatonin 3 mg Cap meloxicam 15 mg tablet Commonly known as: Mobic multivitamin 18-400 mg-mcg tablet Commonly known as: CERTAVITE Nifedipine 30 mg extended release tablet 24 HR olopatadine 0.1% 0.1 % ophthalmic (EYE) solution Commonly known as: PATANOL ondansetron 4 mg ODT Commonly known as: Zofran prochlorperazine 10 mg tablet Commonly known as: COMPAZINE rosuvastatin 5 mg tablet Commonly known as: CRESTOR topiramate 50 mg tablet Commonly known as: TOPAMAX TAKE 2 TABLET BY MOUTH EVERY MORNING AND 3 TABLET BY MOUTH EVERY AT BEDTIME * This list has 2 medication(s) that are the same as other medications prescribed for you. Read thedirections carefully, and ask your doctor or other care provider to review them with you. Where to Get Your Medications These medications were sent to [address] [address] Hours: Mon-Fri: 7:30AM-6PM / Sat: 9AM-3PM / Sun: 9AM-3PM lidocaine 5 % Oint ointment Information about where to get these medications is not yet available Ask your nurse or doctor about these medications cyclobenzaprine 10 mg tablet DISCHARGE ORDERS: Discharge Procedure Orders Any questions or concerns Chills Difficulty breating, headache, or visual disturbance Numbness/pain in extremity Persistent nausea or vomiting Increased tenderness or swelling Severe uncontrolled pain Temperature >101 (38.3 degrees Celsius) Exercise instructions No lifting greater than 5-10 pounds. Avoid overhead lifting, reaching, and frequent lifting No neck flexion or extension. No driving for two weeks and off narcotics. Walk frequently as tolerated starting with a 5-10 minute walk and increase slowly as able. Education - Your incision is covered with gauze and tape, mepilex or other -Check wound area daily for any signs of redness, swelling or drainage - take your temperature twice a day (morning and evening) for two weeks and write it down. - 48 hours after surgery, ok to shower normally with incision uncovered. When finished, pat incision dry. If wound is showing signs of drainage, then re-dress incision with clean, dry dressing; continue this daily until wound is no longer draining. If wound is not actively draining, then ok to leave incision open to air. Any steri-strips or dermabond glue will fall off naturally with time. -Do not apply ointments or creams directly to your incision until completely healed. -Stitches and/or keily will be removed at your follow-up appointment after surgery. -Do not take tub baths for 6 weeks after surgery or until your incision is completely healed. DIET and BOWEL PROGRAM: Maintain a well balanced diet in order to aid healing. Drink plenty of water. It is important to keep your bowel functioning regularly. Sometimes medications such as stool softeners or suppositories may be needed to help re-establish your bowel program. You may take [id number] stool medications as directed by the package insert. Diet: Level 7 Regular Liquid: Level 0: Thin Liquids Special instructions: NA FOLLOW-UP: She should see [facility] for first recheck in 2-4 weeks. Call for appointment if one not already in place. [phone] Mcdonald [phone] Total time spent for discharge on date of discharge: 20 minutes. Lara Cox APRN, CNP [facility] Cosigned by Horacio Mcdonald MD at 10/13/2024 10:57 AM CDT documented in this encounter Medications at Time of Discharge ascorbic acid, vitamin C, 250 mg oral tablet Take 4 tablets (1,000 mg) by mouth once daily. B-Complex with Vitamin C oral Tab Take 1 tablet by mouth once daily. calcium carbonate/vitami n D3 (CALCIUM 500 + D ORAL) Take by mouth. cetirizine (ZYRTEC) 10 mg oral tablet Take 1 tablet (10 mg) by mouth Daily. cholecalciferol, vitamin D3, 25 mcg, 1000 unit, 25 mcg (1,000 unit) oral tablet Take 2 tablets (50 mcg) by mouth once daily. Cimetidine 400 mg oral tablet Take 400 mg by mouth once daily. 05/30/2021 clobetasol (TEMOVATE) 0.05 % Top cream Apply to skin as directed. cyclobenzaprine (FLEXERIL) 10 mg oral tablet Take 0.5-1 tablets (5-10 mg) by mouth three times a day as needed for muscle spasm. 40 tablet 10/17/2024 4:14 PM CDT 10/17/2024 diphenhydrAMINE (BENADRYL) 25 mg oral tablet Take 1 tablet (25 mg) by mouth every 6 (six) hours as needed (allergy). 30 tablet 10/12/2024 4:19 PM CDT 10/12/2024 dulaglutide (TRULICITY) 0.75 mg/0.5 mL SubQ pen Inject 0.75 mg under the skin every 7 (seven) days. 10/02/2024 DULoxetine (CYMBALTA) 30 mg oral delayed release capsule Take 2 capsules (60 mg) by mouth once daily. DULoxetine (CYMBALTA) 60 mg oral delayed release capsule 03/06/2021 HYDROmorphone (DILAUDID) 4 mg oral tablet Take 1 tablet (4 mg) by mouth every 4 (four) hours as needed. 15 tablet 10/17/2024 4:14 PM CDT 10/17/2024 lidocaine (XYLOCAINE) 5 % Top Oint ointment Apply to skin as needed for pain 240 g 10/12/2024 4:19 PM CDT 10/12/2024 melatonin 3 mg oral Cap Take 10 mg by mouth once daily. meloxicam (MOBIC) 15 mg oral tablet Take 1 tablet (15 mg) by mouth Daily. 09/13/2024 multivitamin (CERTAVITE) 18-400 mg-mcg oral tablet Take 1 tablet by mouth once daily. Nifedipine 30 mg oral extended release tablet 24 HR Take 1 tablet (30 mg) by mouth once daily. 04/27/2022 nystatin (MYCOSTATIN) 100,000 unit/g Top cream topical cream Apply to skin as needed. 06/09/2023 olopatadine 0.1% (PATANOL) 0.1 % Opht ophthalmic (EYE) solution Instill 1 drop into EACH eye once daily. ondansetron (ZOFRAN) 4 mg oral ODT Dissolve 2 tablets (8 mg) in mouth every 8 (eight) hours as needed. prochlorperazine (COMPAZINE) 10 mg oral tablet Take 1 tablet (10 mg) by mouth every 6 (six) hours as needed. Take 1/2 to 1 tablet by mouth every 6 hours as needed. Max 3 per 24 hours rosuvastatin (CRESTOR) 5 mg oral tablet Take 1 tablet (5 mg) by mouth at bedtime. senna (SENOKOT) 8.6 mg oral tablet Take 1-4 tablets (8.6-34.4 mg) by mouth twice a day. Hold for diarrhea 40 tablet 10/17/2024 4:14 PM CDT 10/17/2024 topiramate (TOPAMAX) 50 mg oral tablet TAKE 2 TABLET BY MOUTH EVERY MORNING AND 3 TABLET BY MOUTH EVERY AT BEDTIME 450 tablet 3 05/23/2023 cyclobenzaprine (FLEXERIL) 10 mg oral tablet Take 0.5-1 tablets (5-10 mg) by mouth three times a day as needed for muscle spasm. 10/12/2024 10/17/2024 HYDROmorphone (DILAUDID) 4 mg oral tablet Take 1 tablet (4 mg) by mouth every 4 (four) hours as needed. 10/17/2024 pregabalin (LYRICA) 50 mg oral capsule TAKE 1 CAPSULE BY MOUTH BETWEEN 5-6 PM AND TAKE 1 CAPSULE BY MOUTH BETWEEN 9-10 PM 180 capsule 3 11/16/2023 11/08/2024 documented as of this encounter Progress Notes * Ronald Loyd DO - 10/12/2024 4:53 PM CDT Provider Clarification I have reviewed the patient chart and the following accurately represents the patient???s clinical condition. Recurrent depression Cosigned by Gemma Serna MD at 10/19/2024 8:00 AM CDT Associated attestation - Gemma Serna MD - 10/19/2024 8:00 AM CDT agree * Frandy De La Torre RN - 10/12/2024 4:31 PM CDT Rosario Li 1970 [id number] P: Discharge A: Discharged via wheelchair to home at 1631 escorted by nursing faculty I: Discharge information and arrangements included: review of written discharge instructions, review of purpose and side effects of new medication, prescriptions sent with patient, belongings list completed. R:Patient expressed understanding of information.. * Ingrid Arriaga RN - 10/12/2024 2:58 PM CDT Med-Surg Care Progression Note Type: Shift to shift summary Length of stay: 2 days Code Status: Full Code Primary Problem: CERVICAL LAMINECTOMY FOR TRIAL OF SPINAL CORD STIMULATOR PADDLE ELECTRODES WITH NEUROMONITORING (Spine, Lumbar) Summary: Patient is POD #2, A&O and makes needs known. Gave IV Benadryl d/t some itching from adhesive allergy. Posterior dressings CDI, reinforced as needed. PT/OT, neuro, and hospital med cleared patient for discharge today. Set to be picked up by at 1530. F- Feeding & Fluids: Tolerating Regular diet. A- Analgesic & Anticoagulation: Comfort Goal: Numeric, Verbal, Faces: 7 Analgesic Scheduled tylenol, PRN flexaril given for pain Anticoagulation/DVT prevention & plan SCDs S- Skin: Christian Subcategory Concern(s): Sensory Perception: No Impairment Sensory Interventions: Pain control Moisture: Rarely Moist Moisture Interventions: Minimize chux/linen layers Activity: Walks frequently Activity Interventions: Low air loss mattress Nutrition: Excellent Nutrition Interventions: Calorie intake Mobility: No Limitations Mobility Interventions: Low air loss support Friction and Shear: No Apparent Problem Friction and Shear Interventions: Limit head of bed <30 degrees Total Christian Score: 23: T/R independently T- Telemetry: Rhythm: Sinus Tachycardia Ectopy: None No tele E- Emotional & Neuro: Participating in cares Neuro Alert and Oriented R- Respiratory: On room air H- Head OUT of Bed & Activity: Activate Fall Alert? (Enter 1 or 0): (not recorded) Ambulating independently Progressive mobility Phases 5-7: Phase 7: 250 feet or more U- Urologic/bowel: No data recorded Voiding independently, No BM this shift. G- Glycemic Control: Not applicable T- Treatment: Labs, pain management I- Invasive Devices: PIV D- Discharge: Expected 10/12 * Lara Cox, BATTERBOARD SETTER, DEPUTY TREASURER - 10/12/2024 9:10 AM CDT Neurosurgery Progress Note Date of service: 10/12/24 Subjective: No fever overnight, pain rated 4/10. Reflux Mild fever, 99 or less overnight Feeling better Having expected shoulder pain Objective: Vitals - BP (!) 116/58 Pulse 85 Temp 98.9 ??F (37.2 ??C) Resp 17 Ht 5' 5 (1.651 m) Wt 97.5 kg (215 lb) SpO2 96% BMI 35.78 kg/m?? Temp (24hrs), Av.9 ??F (37.2 ??C), Min:98 ??F (36.7 ??C), Max:99.8 ??F (37.7 ??C) Physical Exam - Alertness: awake, alert General: in no acute distress Incision: clean, dry and intact; Covered Respiratory: Breathing unlabored Abdomen: no distention noted Strength: LUNA, no upper extremity deficit Imaging: None new Drains: No drain LABS: Recent Labs 10/11/24 0703 WBC 9.6 RBC 3.97* HEMOGLOBIN 12.5 HEMATOCRIT 36.4 MCV 92 MCH 32 RDW 13.3 PLATELETCT 145* Lab Results Component Value Date/Time POTASSIUM 3.9 10/11/2024 07:03 AM SODIUM 142 10/11/2024 07:03 AM WBC 9.6 10/11/2024 07:03 AM Assessment Procedure(s): CERVICAL LAMINECTOMY FOR TRIAL OF SPINAL CORD STIMULATOR PADDLE ELECTRODES WITH NEURO-MONITORING (N/A) (DOS: 10/10) by Dr. Horacio Mcdonald Fever <100 today, pain better controlled. Plan dc home with family support, follow up next week to assess trial as already scheduled. Full dc summary to follow, orders written. Andry Ponce does not need any narcotics or muscle relaxants upon dc, has home supply from pcp. No narcotics sent. Lara Cox APRN, LAKIA [facility] [place] Office: [phone] * Ronald Loyd, DO - 10/12/2024 8:09 AM CDT Date of service: 10/12/2024 Admission date: 10/10/2024 [facility] PROGRESS NOTE Rosario Li is a 54 y.o. This is a 54 year old female with a significant past medical history of cervical spondylosis without myelopathy, spinal stenosis in cervical region, hypertension, GERD, DMT2 and anxiety. She underwent cervical laminectomy for trial of spinal cord stimulator paddle electrodes with neuromonitoring by Dr. Horacio Stinson on 10/10/24. Developed a fever early in the morning on10/11/24, resolved with tylenol. Plan to discharge 10/12/24. Assessment/Plan: Principal Problem: Cervical radiculopathy Fever Vomiting - Febrile and vomited on 10/11. Improved with tylenol same day. - Now afebrile. Denies body aches. - No signs of pneumonia, atelectasis, UTI or DVT. - Will continue to monitor. 1. Hypertension, stable - DRIER HELPER nifedipine held this morning. BP 116/58. 2. GERD, stable - TUMS prn 3. DMT2, stable - Continue DRIER HELPER Rosuvastatin 4. Anxiety, stable - Continue DRIER HELPER hydroxyzine 5. Depression - Continue DRIER HELPER duloxitine 5. Small fiber Neuropathy, stable - Continue DRIER HELPER lyrica 6. Constipation - Miralax daily - Senna prn - Dulcolax prn 7. Insomnia - Continue DRIER HELPER melatonin FEN/Access/Sims - IV Prophylaxis - SCDs Disposition - Stable Code Status - FULL SUBJECTIVE: Chart reviewed. Overnight, there were no acute events. Rosario feels better and denies any fever, body aches, urinary symptoms or pain in her legs. She doesreport continued discomfort on her bilateral temples. One small open sore on the left just superiorto the ear and a staple on the right side just superior to the right ear without signs of infectionor purulence. Advised her to check with the surgical team. Rosario appears medically optimized for discharge today. Review of Systems - No headache, chest pain, shortness of breath, nausea/vomiting, abdominal pain, calf pain or swelling. Negative other than symptoms mentioned in subjective. OBJECTIVE: Blood pressure (!) 116/58, pulse 85, temperature 98.9 ??F (37.2 ??C), resp. rate 17, height 5' 5 (1.651 m), weight 97.5 kg (215 lb), SpO2 96%. GENERAL: Pt awake, alert, NAD SKIN: Warm and dry to touch. No erythema and no rashes seen. Dressings dry and intact. Small lesionon the left holiness. Staple just superior to the right ear. No signs of infection or purulence. HEENT: Mucous membranes moist RESP: Lungs are clear to auscultation bilaterally. No increase in respiratory effort. No rhonchi, rales or wheezes appreciated. CARDIO: Normal S1 and S2 with regular rate and rhythm. No murmurs, rubs or gallops appreciated. ABD: Bowel sounds present. Soft and nontender without guarding. No distention. No masses appreciated. EXT: No edema. Distal pulses are 2+ bilaterally. NEURO: Alert and oriented, moves all extremities. Non-focal exam. Labs and studies reviewed, pertinent results noted in A/P above. RONALD LOYD DO Care reviewed with Dr. Dr. eSrna Cosigned by Gemma Serna MD at 10/12/2024 3:11 PM CDT Associated attestation - Gemma Serna MD - 10/12/2024 3:11 PM CDT Examined patient on 10/12/2024, Reviewed chart and resident note. Interval events from yesterday reviewed. My exam and plan consistent with residents. Agree with plan of care as outlined in resident note. A compete ROS was negative except otherwise mentioned Additions-none Principal Problem: Cervical radiculopathy Gemma Serna MD * Erin Rosario - 10/12/2024 4:11 AM CDT Med-Surg Care Progression Note Type: Shift to shift summary Length of stay: 2 days Code Status: Full Code Primary Problem: CERVICAL LAMINECTOMY FOR TRIAL OF SPINAL CORD STIMULATOR PADDLE ELECTRODES WITH NEUROMONITORING (Spine, Lumbar) Summary: Patient is POD #2, A&O and makes needs known. Gave IV Benadryl d/t some itching from adhesive allergy. Posterior dressings CDI, reinforced as needed. Temperature has been slightly elevated but within limits, around 99. Pt reported some acid reflux, gave Tums. F- Feeding & Fluids: Tolerating Regular diet. A- Analgesic & Anticoagulation: Comfort Goal: Numeric, Verbal, Faces: 7 Analgesic Scheduled tylenol, PRN dilaudid Anticoagulation/DVT prevention & plan SCDs S- Skin: Christian Subcategory Concern(s): Sensory Perception: No Impairment Sensory Interventions: Pain control Moisture: Rarely Moist Moisture Interventions: Minimize chux/linen layers Activity: Walks frequently Activity Interventions: Low air loss mattress Nutrition: Excellent Nutrition Interventions: Calorie intake Mobility: No Limitations Mobility Interventions: Low air loss support Friction and Shear: No Apparent Problem Friction and Shear Interventions: Limit head of bed <30 degrees Total Christian Score: 23: T/R independently T- Telemetry: Rhythm: Sinus Tachycardia Ectopy: None No tele E- Emotional & Neuro: Participating in cares Neuro Alert and Oriented R- Respiratory: On room air H- Head OUT of Bed & Activity: Activate Fall Alert? (Enter 1 or 0): (not recorded) Ambulating independently Progressive mobility Phases 5-7: Phase 5: 10 steps or more U- Urologic/bowel: No data recorded Voiding independently G- Glycemic Control: Not applicable T- Treatment: Labs, pain management I- Invasive Devices: PIV D- Discharge: Expected 10/12 Cosigned by Robles Gibbons RN at 10/12/2024 5:00 AM CDT * Kenji Floyd RN - 10/11/2024 6:42 PM CDT Med-Surg Care Progression Note Type: Shift to shift summary Length of stay: 1 days Code Status: Full Code Primary Problem: CERVICAL LAMINECTOMY FOR TRIAL OF SPINAL CORD STIMULATOR PADDLE ELECTRODES WITH NEUROMONITORING (Spine, Lumbar) Summary: Patient was febrile this morning, PRN tylenol administered. Temp now within normal range. Pain management ongoing.. F- Feeding & Fluids: Tolerating Regular diet. A- Analgesic & Anticoagulation: Comfort Goal: Numeric, Verbal, Faces: 7 Analgesic PRN medications available Anticoagulation/DVT prevention & plan SCDs S- Skin: Christian Subcategory Concern(s): Sensory Perception: No Impairment Sensory Interventions: Pain control Moisture: Occasionally Moist Moisture Interventions: Minimize chux/linen layers Activity: Walks frequently Activity Interventions: Low air loss mattress Nutrition: Excellent Nutrition Interventions: Calorie intake Mobility: No Limitations Mobility Interventions: Low air loss support Friction and Shear: No Apparent Problem Friction and Shear Interventions: Limit head of bed <30 degrees Total Christian Score: 22: weight shift T- Telemetry: Rhythm: Sinus Tachycardia Ectopy: None No tele E- Emotional & Neuro: Participating in cares Neuro Alert and Oriented R- Respiratory: On room air H- Head OUT of Bed & Activity: Activate Fall Alert? (Enter 1 or 0): (not recorded) Ambulating SBA to bathroom Progressive mobility Phases 5-7: Phase 5: 10 steps or more U- Urologic/bowel: No data recorded Voiding Continent to bathroom G- Glycemic Control: Not applicable T- Treatment: Labs, pain management I- Invasive Devices: PIV x1 D- Discharge: TBD * Ronald Loyd, DO - 10/11/2024 10:56 AM CDT Date of service: 10/11/2024 Admission date: 10/10/2024 [facility] PROGRESS NOTE Rosario Li is a 54 y.o. This is a 54 year old female with a significant past medical history of cervical spondylosis without myelopathy, spinal stenosis in cervical region, hypertension, GERD, DMT2 and anxiety. She underwent cervical laminectomy for trial of spinal cord stimulator paddle electrodes with neuromonitoring by Dr. Horacio Stinson on 10/10/24. Developed a fever early in the morning on10/11/24. Assessment/Plan: Principal Problem: Cervical radiculopathy Fever Vomiting - Initially 101.6 - Vomited this morning. - Now afebrile after several rounds of tylenol. - No signs of pneumonia, atelectasis, UTI or DVT. - Will continue to monitor. 1. Hypertension, stable - Continue DRIER HELPER Nifedipine 2. GERD, stable - Famotidine 20 mg Q 12 hrs 3. DMT2, stable - Continue DRIER HELPER Rosuvastatin 4. Anxiety, stable - Continue DRIER HELPER hydroxyzine 5. Depression - Continue DRIER HELPER duloxitine 5. Small fiber Neuropathy, stable - Continue DRIER HELPER lyrica 6. Constipation - Miralax daily - Senna prn - Dulcolax prn 7. Insomnia - Continue DRIER HELPER melatonin FEN/Access/Sims - IV Prophylaxis - SCDs Disposition - Stable Code Status - FULL SUBJECTIVE: Chart reviewed. Overnight, there were no acute events. This morning, Rosario woke up with a fever and headache. She did vomit once after feeling nauseous for an hour. She denies any cough or signs of atelectasis. Does not have any lower extremity pain or swelling. Denies any pain with urination or polyuria. Neurology inspected the surgical site and are not concerned about infection. Her WBCs were 9.6 this morning. She was given Tylenol twice over the morning and the fever eventually improved. Review of Systems - No headache, chest pain, shortness of breath, nausea/vomiting, abdominal pain, calf pain or swelling. Negative other than symptoms mentioned in subjective. OBJECTIVE: Blood pressure 126/69, pulse 100, temperature 99.8 ??F (37.7 ??C), resp. rate 16, height 5' 5 (1.651 m), weight 97.5 kg (215 lb), SpO2 93%. GENERAL: Pt awake, alert, NAD SKIN: Warm and dry to touch. No erythema and no rashes seen. Dressings dry and intact. HEENT: Mucous membranes moist RESP: Lungs are clear to auscultation bilaterally. No increase in respiratory effort. No rhonchi, rales or wheezes appreciated. CARDIO: Normal S1 and S2 with regular rate and rhythm. No murmurs, rubs or gallops appreciated. ABD: Bowel sounds present. Soft and nontender without guarding. No distention. No masses appreciated. EXT: No edema. Distal pulses are 2+ bilaterally. NEURO: Alert and oriented, moves all extremities. Non-focal exam. Labs and studies reviewed, pertinent results noted in A/P above. RONALD LOYD, DO Care reviewed with Dr. Dr. Serna Cosigned by Gemma Serna MD at 10/11/2024 2:34 PM CDT Associated attestation - Gemma Serna MD - 10/11/2024 2:34 PM CDT Examined patient on 10/11/2024, Reviewed chart and resident note. Interval events from yesterday reviewed. My exam and plan consistent with residents. Agree with plan of care as outlined in resident note. A compete ROS was negative except otherwise mentioned Additions-none Principal Problem: Cervical radiculopathy Gemma Serna MD * Lara Cox, BATTERBOARD SETTER, DEPUTY TREASURER - 10/11/2024 10:48 AM CDT Neurosurgery Progress Note Date of service: 10/11/2024 Subjective: Pain not well controlled, post-op fever today Tightness in the neck and shoulders No new neuro deficits Objective: Vitals - BP 109/72 Pulse 100 Temp (!) 101.6 ??F (38.7 ??C) Resp 18 Ht 5' 5 (1.651 m) Wt 97.5 kg (215 lb) SpO2 94% BMI 35.78 kg/m?? Temp (24hrs), Av ??F (37.8 ??C), Min:97.5 ??F (36.4 ??C), Max:101.6 ??F (38.7 ??C) Physical Exam - Alertness: awake, alert General: in no acute distress Incision: clean, dry and intact; Covered Respiratory: Breathing unlabored Abdomen: no distention noted Strength: LUNA, no upper extremity deficit Imaging: None new Drains: No drain LABS: Recent Labs 10/11/24 0703 WBC 9.6 RBC 3.97* HEMOGLOBIN 12.5 HEMATOCRIT 36.4 MCV 92 MCH 32 RDW 13.3 PLATELETCT 145* Lab Results Component Value Date/Time POTASSIUM 3.9 10/11/2024 07:03 AM SODIUM 142 10/11/2024 07:03 AM WBC 9.6 10/11/2024 07:03 AM Assessment Procedure(s): CERVICAL LAMINECTOMY FOR TRIAL OF SPINAL CORD STIMULATOR PADDLE ELECTRODES WITH NEUROMONITORING (N/A) (DOS: 10/10) by Dr. Horacio Mcdonald Pain not well controlled, post-op fever today. Utilizing IS, taking tylenol, added NSAIDs Plan: Encourage IS Add lidocaine cream Okay for NSAIDs today for pain and fever Activity as tolerated Dressing can be changed tomorrow prior to dc Plan dc home tomorrow Lara Cox APRN, [place] 10:49 AM [facility] Office: [phone] * Erin Rosario Shelby - 10/11/2024 5:42 AM CDT Med-Surg Care Progression Note Type: Shift to shift summary Length of stay: 1 days Code Status: Full Code Primary Problem: CERVICAL LAMINECTOMY FOR TRIAL OF SPINAL CORD STIMULATOR PADDLE ELECTRODES WITH NEUROMONITORING (Spine, Lumbar) Summary: Patient is POD #0, A&O and makes needs known. Gave IV Benadryl d/t some itching from adhesive allergy. Dressings CDI, changed lower back dressing last night. Temperature hit 101.5 [id number], MD notified. Recheck was 101.6, CBC and BMP ordered. F- Feeding & Fluids: Tolerating Regular diet. A- Analgesic & Anticoagulation: Comfort Goal: Numeric, Verbal, Faces: 7 Analgesic Scheduled tylenol, PRN dilaudid Anticoagulation/DVT prevention & plan SCDs S- Skin: Christian Subcategory Concern(s): Sensory Perception: No Impairment Sensory Interventions: Pain control Moisture: Occasionally Moist Moisture Interventions: Minimize chux/linen layers Activity: Walks frequently Activity Interventions: Low air loss mattress Nutrition: Excellent Nutrition Interventions: Calorie intake Mobility: No Limitations Mobility Interventions: Low air loss support Friction and Shear: No Apparent Problem Friction and Shear Interventions: Limit head of bed <30 degrees Total Christian Score: 22: T/R independently T- Telemetry: Rhythm: Sinus Tachycardia Ectopy: None No tele E- Emotional & Neuro: Participating in cares Neuro Alert and Oriented R- Respiratory: On room air H- Head OUT of Bed & Activity: Activate Fall Alert? (Enter 1 or 0): (not recorded) Ambulating SBA to bathroom Progressive mobility Phases 5-7: Phase 5: 10 steps or more U- Urologic/bowel: No data recorded Voiding independently G- Glycemic Control: Not applicable T- Treatment: Labs, pain management I- Invasive Devices: PIV x2 D- Discharge: Expected 10/11 * Kenji Floyd RN - 10/10/2024 7:54 PM CDT Med-Surg Care Progression Note Type: Shift to shift summary Length of stay: 0 days Code Status: Full Code Primary Problem: CERVICAL LAMINECTOMY FOR TRIAL OF SPINAL CORD STIMULATOR PADDLE ELECTRODES WITH NEUROMONITORING (Spine, Lumbar) Summary: Patient is POD #0 Spine,Lumbar. Patient is alert and oriented. Prn oral dilaudid given forpain management. F- Feeding & Fluids: Tolerating Regular diet. A- Analgesic & Anticoagulation: Comfort Goal: Numeric, Verbal, Faces: 7 Analgesic PRN medications available Anticoagulation/DVT prevention & plan SCDs S- Skin: Christian Subcategory Concern(s): Sensory Perception: (not recorded) Sensory Interventions: Pain control Moisture: (not recorded) Moisture Interventions: Minimize chux/linen layers Activity: (not recorded) Activity Interventions: Low air loss mattress Nutrition: (not recorded) Nutrition Interventions: Calorie intake Mobility: (not recorded) Mobility Interventions: Low air loss support Friction and Shear: (not recorded) Friction and Shear Interventions: Limit head of bed <30 degrees Total Christian Score: (not recorded): weight shift T- Telemetry: Rhythm: Sinus Tachycardia Ectopy: None No tele E- Emotional & Neuro: Participating in cares Neuro Alert and Oriented R- Respiratory: On room air H- Head OUT of Bed & Activity: Activate Fall Alert? (Enter 1 or 0): (not recorded) Ambulating SBA to bathroom Progressive mobility Phases 5-7: Phase 5: 10 steps or more U- Urologic/bowel: No data recorded Voiding Continent to bathroom G- Glycemic Control: Not applicable T- Treatment: Labs, pain management I- Invasive Devices: PIV x1 D- Discharge: TBD * Kenji Floyd RN - 10/10/2024 3:22 PM CDT P. Admission A. Condition on Admit: alert. Patient/Family Concerns: Patient expressed concern about pain relief . I. Initial Interventions included: administered medication for Pain. Orientation to Unit: Patient oriented to how to call for help, name of assigned rn intensive care unit, PatientInformation booklet, Handwashing, Respiratory Hygiene, initial physician orders, hourly rounding procedures, belongings checklist, unit and plan of care. R. Patient expressed understanding of information.. documented in this encounter Consult Notes * Debi Cohen, OT - 10/11/2024 12:48 PM CDT Occupational Therapy Acute Evaluation Patient Name: Rosario Li Today's Date: 10/11/2024 Admission Date: 10/10/2024 ASSESSMENT/PLAN/RECOMMENDATIONS Assessment/Plan/Recommendations OT Assessment: Rosario is a 54 yo female admitted for planned c-spine surgery. Pt comes from home with spouse, mother and roommate. Pt was indep with ADLs prior, has support with IADLs. Pt presents with pain. Functional UEs. Appears near her ADL baseline, SBA. Reviewed spinal precautions in association to ADL modifications and IADL restrictions, pt verbalized understanding/agreement. Will continue to follow acutely but do not anticipate post acute OT needs. Discharge Support Recommendations: Requires increased assist/support Requires assist with the following ADLs: Shower/bathing Requires assist with the following IADLs: Driving, Homemaking, Meal prep (per baseline) Post Acute Therapy Needs: No OT needs OT Assessment Results: Impaired ADLs, Impaired IADLs Strengths: Good strength, Ambulatory, Patient cooperation, Patient motivation Limitations/Discharge Barriers: Needs assist with ADL, Decreased activity tolerance Rehab Potential: Good Treatment Interventions: ADL retraining, Patient/family training, Home safety education, Equipment evaluation/education OT Frequency: 2-3x/week Recommendations For Next Session: MR-ADLs INPATIENT REHAB FACILITY CANDIDATE Inpatient Rehabilitation Facility Candidate Appropriate for Acute Inpatient Rehab?: No GENERAL General Visit Type: Initial Evaluation Diagnosis: Cervical radiculopathy Admission/Diagnosis Details: Pt underwent planned CERVICAL LAMINECTOMY FOR TRIAL OF SPINAL CORD STIMULATOR PADDLE ELECTRODES WITH NEUROMONITORING Pertinent Past Medical History: significant past medical history of cervical spondylosis without myelopathy, spinal stenosis in cervical region, hypertension, GERD, DMT2 and anxiety. Patient Seen In: Room Family/Caregiver Present: No [employer] Worker Used?: NA Hearing: Within Functional Limits Subjective (Comment): Pt awake in bed, agreeable PRECAUTIONS Precautions Precautions: Spinal Precautions Comments: No brace ordered SAFETY INTERVENTIONS Safety Interventions Fall Risk?: Yes Safety Interventions/Patient Disposition: Standard interventions, In bed, All needs within reach, Call light in hand PAIN Patient complained of moderate pain HOME LIVING Home Setup Type of Home: House Lives With: Spouse, Mother, Roommate Home Layout: Two level Home Entry: Stairs to enter with rails Rails: Unilateral Number of stairs: 5 Stairs within Home: Stairs with rails Rails: Unilateral Number of stairs: 5+9 Bathroom Environment: Tub/shower combo, Shower chair PRIOR FUNCTION ADL/IADL Prior Function ADL/IADL Patient is independent with: ADLs, Driving, Medication Management Patient needs assist with: Meal Preparation, Shopping, Homemaking, Certified Orthotist Practice Manager, Yardwork PRIOR FUNCTION MOBILITY Prior Level of Functional Mobility Independent with: All Mobility DME Used: Rolling walker, Single point cane DME Owned: Single point cane, Rolling walker, Manual wheelchair History of falls: Denies but reports multiple near falls d/t knee OA Comment: Reports mobility is limited by knee arthritis and other chronic conditions, but can mobilize without assist. works from home so he can assist as needed COGNITIVE STATUS Cognitive Status Cognition Comments: Oriented x4 VISION Vision - Basic Assessment Current Vision: No visual deficits UPPER EXTREMITY ASSESSMENTS ROM RUE ROM: Functional LUE ROM : Functional Strength RUE Strength: Functional LUE Strength: Functional AM-[facility] Outcome Measure 6 Clicks Daily ADL AM-PAC Putting on and taking off regular lower body clothing?: A Little Bathing (including washing, rinsing, drying)?: A Little Toileting, which includes using toilet, bedpan or urinal?: A Little Putting on and taking off regular upper body clothing?: None Taking care of personal grooming such as brushing teeth?: None Eating meals?: None AM-PAC Daily Activity Raw Score: 21 AM-[facility] Daily Activity CMS 0-100% Score: 32.79 AM-PAC Daily Activity t-Scale Score: 44.27 The following scores are predictive of discharge disposition during acute hospitalization: Home= 20.1; Home with Home Health= 17.9; TCU=14; IRF=13.6; LTACH=11.5 Please refer to narrative for assessment of functional performance and discharge recommendations asscores may not always reflect mobility, cognitive aspects of performance or instrumental activitiesof daily living (IADLs) CURRENT ADL/IADL STATUS Current ADL Status Grooming Assistance: SBA LE Dressing Assistance: SBA (difficulty with socks but does not wear at baseline, wears slip on shoes) FUNCTIONAL MOBILITY Bed Mobility Supine to Sit: SBA Sit to Supine: SBA Dangling: SBA Functional Transfers Sit to Stand: SBA Stand to Sit: SBA Functional Mobility Functional Mobility: SBA for ADL distance mobility EXERCISE Functional Activity Functional Activity: Education on spinal precautions in relation to ADLs, IADLs, and bed mobility. Issued educational handout. Pt recalled 3/3 spinal precautions post education. Pt/caregiver verbalized understanding/agreement of recommendations for ADL modifications, equipment recommendations, and assistance for IADLs to maintain compliance to spinal precautions. ACTIVITY TOLERANCE Activity Tolerance Endurance: Participates 20-30 min of therapy session PATIENT EDUCATION Patient Education Patient Education: Plan of care, Role of OT, Discharge recommendations, Recommendations based upon assessments TIME SPENT WITH PATIENT OT Timed Code Treatment Minutes OT Evaluation: 15 OT Self-Care/Home Management: 11 OT Therapeutic Activity: 5 OT Total Minutes Spent with Patient Total Minutes Spent With Patient (billable): 31 Minutes GOALS Time Frame Short term goals target date: 10/18/24 rodent exterminator goals target date: 10/25/24 Patient/Family Participation in Goal Setting Patient participated in goal setting: Yes Patient goal preference: To safely d/c home STG Grooming Patient will complete daily grooming and light hygiene task: independently Outcome: Goal Ongoing STG UE Dressing Patient will dress upper body donning/doffing: independently Outcome: Goal Ongoing STG LE Dressing Patient will dress lower body donning/doffing: independently Outcome: Goal Ongoing STG Toileting Patient will complete toileting: independently Outcome: Goal Ongoing Aircraft Inspector Goals Patient will complete ADLs including: hygiene/grooming, dressing, toileting, bathing, independently Outcome: Goal Ongoing * Kalani Frank, PT - 10/11/2024 10:19 AM CDT Acute Physical Therapy Evaluation Patient Name: Rosario Li Today's Date: 10/11/2024 Admission Date: 10/10/2024 Precautions Precautions Precautions: Spinal Precautions Comments: No brace ordered Assessment PT Assessment/Recommendations Assessment: Rosario Li is a 54 yo female admitted for planned c-spine surgery. She presents to PTwith expected postop pain and decreased activity tolerance. She is able to ambulate with SBA-Lior, completes sit<>Stand Lior, sits EOB independently. Needs increased time for tasks d/t pain. Requests to defer stairs, reports they are already difficult d/t her knee and doesn't think she could complete them today-- but agreeable to try in upcoming sessions. From PT perspective, anticipate jannettell be able to return home with spouse assist when medically cleared once she can safely complete stairs. Would benefit from followup PT. Strengths: Patient cooperation, Strong discharge support Limitations/Discharge Barriers: Pain, Decreased activity tolerance Endurance: Participates 20-30 min of therapy session Prognosis: Good Recommendations for Nursing: Up to chair 2-3x/day, Standby assist with gait belt, Ambulate 2-3x/day Discharge Support Recommendations: Requires increased support/assist Mobility Needs at Discharge: Supervision during mobility Post Acute Therapy Needs: Continued PT at next level of care Appropriate for Acute Inpatient Rehab?: No Not appropriate due to: Patient does not have the endurance to tolerate an intense therapy program of 3 hours of therapy a day, at least 5 days a week Plan PT Frequency: 1x/day, 3-5 days a week Interventions: Gait training, Therapeutic exercise, Therapeutic activities, Neuromuscular re-education Encounter Details General Diagnosis: Cervical radiculopathy Admission/Diagnosis Details: Pt underwent planned CERVICAL LAMINECTOMY FOR TRIAL OF SPINAL CORD STIMULATOR PADDLE ELECTRODES WITH NEUROMONITORING Pertinent Past Medical History: significant past medical history of cervical spondylosis without myelopathy, spinal stenosis in cervical region, hypertension, GERD, DMT2 and anxiety. Patient Seen In: Room Family/Caregiver Present: No Subjective Comments: Agreeable to session, very pleasant Subjective/Social History Home Setup Type of Home: House Lives With: Spouse, Mother, Roommate Home Layout: Two level Home Entry: Stairs to enter with rails Rails: Unilateral Number of stairs: 5 Stairs within Home: Stairs with rails Rails: Unilateral Number of stairs: 5+9 Prior Level of Functional Mobility Independent with: All Mobility, ADLs DME Used: Rolling walker, Single point cane DME Owned: Single point cane, Rolling walker, Manual wheelchair History of falls: Denies but reports multiple near falls d/t knee OA Comment: Reports mobility is limited by knee arthritis and other chronic conditions, but can mobilize without assist. works from home so he can assist as needed Pain Patient complained of 8/10 neck and back pain Objective Cognitive Status Orientation Level: Oriented X4 Therapy Vitals Vitals Comments: asymptomatic ROM RLE: WFL LLE: WFL Strength Overall RLE Strength: WFL Overall LLE Strength: WFL Sensation Light Touch: Diminished in the LLE Sensation Comments: Reports longstanding numbness in L groin down to knee from a previous back surgery Patient is functioning as follows: Bed Mobility Dangling: Modified independent Bed Mobility Comments: NT, but sat EOB independently Transfers Transfer Type: Sit to/from Stand Sit to/from Stand Level of Assist: Supervision Assistive Device: No assistive device Comments: Slow to rise but completes without assist Ambulation Ambulation Assessment: Bout 1 Bout 1 Distance (ft): 300 Assistive Device: No assistive device Level of Assist: Standby Assist, Supervision Quality of Gait: Slow pace, small steps, some mild side to side sway. Decreased arm swing. Steady on her feet, no LOB Stairs/Curb Negotiation Stairs/Curb Negotiation: Bout 1 Bout 1 Comments: Pt reports she feels like she could not do stairs today. Agreeable to attempting in upcoming sessions [facility] [address] AM-PAC 6-Clicks Turning over in bed (including adjusting bed clothes, sheets, and blankets): Modified independent/independent Sitting down and standing up from a chair with arms: Minimum/contact guard/standby assist Moving from lying on back to sitting on the side of bed: Minimum/contact guard/standby assist Moving to and from a bed to a chair: Minimum/contact guard/standby assist Walk in hospital room?: Minimum/contact guard/standby assist Climbing 3-5 steps with a railing: Minimum/contact guard/standby assist [facility] 6 Clicks: Mobility Total Score: 19 The following scores are predictive of discharge disposition during acute hospitalization: Home= 20or greater; Home with Home Health=18; Continued skilled care at appropriate facility= 14 or less. Treatment Therapeutic Activity Therapeutic Activity: Activity 1 Activity 1: Reviewed spinal precautions, safety with mobility, and letting pain guide movement. Shereports feeling familiar with spinal precs d/t previous surgeries Education/Safety Education Provided Patient Education: Role of PT, Strengthening and conditioning, Safety with mobility Safety Interventions Fall Risk?: Yes Safety Interventions/Patient Disposition: Standard interventions, Call light in hand, All needs within reach, In chair Goals Time Frame Goals target date: 10/18/24 Patient/family participation in goal setting Patient/family participation in goal setting: Yes Supine to Sit Patient will perform supine to sit with: Modified independence Sit to/from Stand Patient will perform sit to/from stand transfer with: Modified independence Assistive Device: Least restrictive assistive device Gait Level of Assist: Modified independent Assistive Device: Least restrictive assistive device Distance: 150 Stair Negotiation Patient will perform stairs with: Supervision UE Support: Unilateral rail Number of Stairs: 10 TIME SPENT WITH PATIENT PT Time Spent with Patient for Evaluation PT Evaluation: 15 PT Timed Code Treatment Minutes (outside of evaluation) PT Therapeutic Activity: 11 PT Timed Code Treatment Minutes PT Total Billable Minutes: 26 Minutes * Ronald Loyd DO - 10/10/2024 3:58 PM CDTAssociated Order(s): CONSULT HOSPITALIST Family Medicine Consultation Note Patient Name: Rosario Li Address: [address] [facility] [address] Age: 54 y.o. Sex: female Admission Date/Time: 10/10/2024 7:55 AM Primary Care Provider: Octaviano Tineo MD Informant: patient I was asked to see this patient by Dr. Horacio Stinson for Consultation on Medication and Medical Management. CHIEF COMPLAINT: Cervical laminectomy post op day 0 HPI: This is a 54 year old female with a significant past medical history of cervical spondylosis without myelopathy, spinal stenosis in cervical region, hypertension, GERD, DMT2 and anxiety. She underwent cervical laminectomy for trial of spinal cord stimulator paddle electrodes with neuromonitoring by Dr. Horacio Stinson earlier today. She is having 8/10 pain at the surgical site, but is otherwise comfortable in her room, joined by her . We discussed her chronic health conditions that she takes medications for daily. These conditions are all stable in nature. PAST MEDICAL HISTORY: Past Medical History: Diagnosis Date Abnormal movement Anxiety Back pain Balance problem Chronic pain arthritis all over, muscles and nerves Diabetes (HCC) type 2 Difficulty with speech Dizziness Heartburn High blood pressure History of sprained wrist splint (left) Insomnia Joint pain Memory difficulty Motion sickness vertigo Neck pain Numbness and tingling Ringing in ears Sleep apnea had a procedure with sinuses so no issues anymore Sleeping difficulty Stomach discomfort Vision impairment PAST SURGICAL HISTORY: Past Surgical History: Procedure Laterality Date UNLISTED PROCEDURE ABDOMEN PERITONEUM & OMENTUM 12 abdominal surgies UNLISTED PROCEDURE BREAST Bilateral breast reduction HX HYSTERECTOMY partial and then a full at 38 Years old d/t cysts IMPLANT PROCEDURE lower back stimulator PRIOR TO ADMISSION MEDICATIONS: Prior to Admission Medications Prescriptions Last Dose Informant Patient Reported? Taking? B-Complex with Vitamin C oral Tab 10/01/2024 Patient Yes Yes Sig: Take 1 tablet by mouth once daily. Cimetidine 400 mg oral tablet 10/10/2024 Morning Patient Yes Yes Sig: Take 400 mg by mouth once daily. DULoxetine (CYMBALTA) 30 mg oral delayed release capsule 10/09/2024 Evening Patient Yes Yes Sig: Take 2 capsules (60 mg) by mouth once daily. DULoxetine (CYMBALTA) 60 mg oral delayed release capsule 10/09/2024 Evening Patient Yes Yes HYDROmorphone (DILAUDID) 4 mg oral tablet 10/07/2024 Patient Yes Yes Sig: Take 1 tablet (4 mg) by mouth every 4 (four) hours as needed. Nifedipine 30 mg oral extended release tablet 24 HR 10/10/2024 Morning Patient Yes Yes Sig: Take 1 tablet (30 mg) by mouth once daily. ascorbic acid, vitamin C, 250 mg oral tablet 10/01/2024 Patient Yes Yes Sig: Take 4 tablets (1,000 mg) by mouth once daily. calcium carbonate/vitamin D3 (CALCIUM 500 + D ORAL) 10/01/2024 Patient Yes Yes Sig: Take by mouth. cholecalciferol, vitamin D3, 25 mcg, 1000 unit, 25 mcg (1,000 unit) oral tablet 10/01/2024 Patient Yes Yes Sig: Take 2 tablets (50 mcg) by mouth once daily. clobetasol (TEMOVATE) 0.05 % Top cream PRN Patient Yes Yes Sig: Apply to skin as directed. cyclobenzaprine (FLEXERIL) 10 mg oral tablet PRN Patient Yes Yes dulaglutide (TRULICITY) 0.75 mg/0.5 mL SubQ pen Patient Yes Yes Sig: Inject 0.75 mg under the skin every 7 (seven) days. fluticasone (FLONASE) 50 mcg/actuation nasal spray PRN Patient Yes Yes Sig: Instill 1 spray into EACH nare ONCE DAILY. melatonin 3 mg oral Cap 10/09/2024 Bedtime Patient Yes Yes Sig: Take 10 mg by mouth once daily. meloxicam (MOBIC) 15 mg oral tablet 10/05/2024 Yes Yes Sig: Take 1 tablet (15 mg) by mouth Daily. multivitamin (CERTAVITE) 18-400 mg-mcg oral tablet 10/01/2024 Patient Yes Yes Sig: Take 1 tablet by mouth once daily. olopatadine 0.1% (PATANOL) 0.1 % Opht ophthalmic (EYE) solution 10/09/2024 Evening Patient Yes Yes Sig: Instill 1 drop into EACH eye twice a day. ondansetron (ZOFRAN) 4 mg oral ODT PRN Patient Yes Yes Sig: Dissolve 2 tablets (8 mg) in mouth every 8 (eight) hours as needed. pregabalin (LYRICA) 50 mg oral capsule 10/09/2024 Bedtime Patient No Yes Sig: TAKE 1 CAPSULE BY MOUTH BETWEEN 5-6 PM AND TAKE 1 CAPSULE BY MOUTH BETWEEN 9-10 PM Patient taking differently: Take 1 capsule (50 mg) by mouth at bedtime. prochlorperazine (COMPAZINE) 10 mg oral tablet PRN Patient Yes Yes Sig: Take 1 tablet (10 mg) by mouth every 6 (six) hours as needed. Take 1/2 to 1 tablet by mouth every 6 hours as needed. Max 3 per 24 hours rosuvastatin (CRESTOR) 5 mg oral tablet 10/09/2024 Bedtime Patient Yes Yes Sig: Take 1 tablet (5 mg) by mouth at bedtime. topiramate (TOPAMAX) 50 mg oral tablet 10/10/2024 Morning Patient No Yes Sig: TAKE 2 TABLET BY MOUTH EVERY MORNING AND 3 TABLET BY MOUTH EVERY AT BEDTIME Facility-Administered Medications: None ALLERGIES: Hyaluronate (hyaluronic acid), Acetaminophen, Aspirin, Aspirin ad/antacid [asa- calcium [id number]], Cat dander, Dog dander, Dust/dust mites (calixto), Esomeprazole, Estradiol, Fentanyl, Gabapentin, Hydrocodone, Hydrocodone- acetaminophen, Latex, Maple flavor, Metformin, Nitroimidazoles, Penicillins, Percocet [oxycodone-acetaminophen], Primidone, Propranolol, Ragweed pollen, Semaglutide, Synvisc[hylan g-f 20], Tape-adhesive strip (calixto), and Unidentified FAMILY HISTORY: Family History Problem Relation Name Age of Onset Coronary Heart Disease Mother Heart Disease Father Genetic/Chromosomal Disorder Father Coronary Heart Disease Father Heart Disease Sister Heart Disease Brother Genetic/Chromosomal Disorder Brother Mental Illness Brother High Blood Pressure Other Migraines Other Diabetes Other SOCIAL HISTORY: Social History Socioeconomic History Marital status: Spouse name: Not on file Number of children: 0 Years of education: Not on file Highest education level: Not on file Occupational History Occupation: Disabled Tobacco Use Smoking status: Former Current packs/day: 0.00 Types: Cigarettes Quit date: 1996 Years since quittin.5 Smokeless tobacco: Never Substance and Sexual Activity Alcohol use: Never Drug use: Never Sexual activity: Not on file Other Topics Concern Not on file Social History Narrative Not on file Social Drivers of Health Food Insecurity: No Food Insecurity (10/10/2024) Hunger Vital Sign Worried About Running Out of Food in the Last Year: Never true Ran Out of Food in the Last Year: Never true Transportation Needs: No Transportation Needs (10/10/2024) PRAPARE - Transportation Lack of Transportation (Medical): No Lack of Transportation (Non-Medical): No Intimate Partner Violence: Not At Risk (10/10/2024) Humiliation, Afraid, Rape, and Kick questionnaire Fear of Current or Ex-Partner: No Emotionally Abused: No Physically Abused: No Sexually Abused: No Housing Stability: Low Risk (10/10/2024) Housing Stability Vital Sign Unable to Pay for Housing in the Last Year: No Number of Times Moved in the Last Year: 0 Homeless in the Last Year: No REVIEW OF SYSTEMS: A comprehensive review of systems was negative except for items noted in the HPI/Subjective: Respiratory: Negative for cough, dyspnea, wheezing Cardiovascular: Negative for chest pain, leg edema Gastrointestinal: Negative for nausea, vomiting Neurological: Negative for paresthesia beyond baseline. PHYSICAL EXAM: BP 115/67 Pulse 97 Temp 97.9 ??F (36.6 ??C) Resp 11 Ht 5' 5 (1.651 m) Wt 97.5 kg (215 lb) SpO2 97% BMI 35.78 kg/m?? General appearance: awake and alert RESPIRATORY: lungs clear to auscultation and percussion, normal diaphragmatic movement, chest symmetrical CARDIOVASCULAR: normal S1, normal S2, regular rhythm, rubs: none, murmurs: none, gallops: none NEUROLOGIC: alert and oriented x 4, moves all extremities No altered sensation of the bilateral upper extremities. Extremities: Distal Pulses are palpable, no edema Skin: No mottling of the skin PROCEDURES: cervical laminectomy for trial of spinal cord stimulator paddle electrodes with neuromonitoring IMAGING: N/a LABS: Results for orders placed or performed during the hospital encounter of 10/10/24 (from the past 24 hours) POCT Glucose Meter Result Value Ref Range GLUCOSE WB METER 118 (H) 60 - 100 mg/dL POCT Glucose Meter Result Value Ref Range GLUCOSE WB METER 139 (H) 60 - 100 mg/dL EKG: Hemoglobin - pending ADDITIONAL COMMENTS: I reviewed the patient's new clinical lab test results. ASSESSMENT: This is a 54 year old female post op day 0 from cervical laminectomy Principal Problem: Cervical radiculopathy Recommendations: 1. Hypertension, stable - Continue DRIER HELPER Nifedipine 2. GERD, stable - Famotidine 20 mg Q 12 hrs 3. DMT2, stable - Continue DRIER HELPER Rosuvastatin 4. Anxiety, stable - Continue DRIER HELPER hydroxyzine 5. Depression - Continue DRIER HELPER duloxitine 5. Small fiber Neuropathy, stable - Continue DRIER HELPER lyrica 6. Constipation - Miralax daily - Senna prn - Dulcolax prn 7. Insomnia - Continue DRIER HELPER melatonin CODE STATUS: FULL DVT prophylaxis: SCDs GI prophylaxis: Famotidine ACCESS: IV RESTRAINTS: None DISPOSITION: Anticipated date of discharge 10/11/24, Criteria for discharge is clinical improvement LENGTH OF STAY: Outpatient in a bed - for standard post procedure care Thank you again for allowing us to participate in the care of your patient Rosario Li Time: 40 minutes RONALD LOYD DO Cosigned by Esequiel Villanueva Jr., MD at 10/11/2024 1:32 PM CDT Associated attestation - Esequiel Villanueva Jr., MD - 10/11/2024 1:32 PM CDT See Resident note for full details History of presenting illness: Consistent with that obtained by resident. Past Medical History Past Medical History: Diagnosis Date Abnormal movement Anxiety Back pain Balance problem Chronic pain arthritis all over, muscles and nerves Diabetes (HCC) type 2 Difficulty with speech Dizziness Heartburn High blood pressure History of sprained wrist splint (left) Insomnia Joint pain Memory difficulty Motion sickness vertigo Neck pain Numbness and tingling Ringing in ears Sleep apnea had a procedure with sinuses so no issues anymore Sleeping difficulty Stomach discomfort Vision impairment Past Surgical History: Past Surgical History: Procedure Laterality Date UNLISTED PROCEDURE ABDOMEN PERITONEUM & OMENTUM 12 abdominal surgies UNLISTED PROCEDURE BREAST Bilateral breast reduction HX HYSTERECTOMY partial and then a full at 38 Years old d/t cysts IMPLANT PROCEDURE lower back stimulator Social History Social History Socioeconomic History Marital status: Spouse name: Not on file Number of children: 0 Years of education: Not on file Highest education level: Not on file Occupational History Occupation: Disabled Tobacco Use Smoking status: Former Current packs/day: 0.00 Types: Cigarettes Quit date: 1996 Years since quittin.5 Smokeless tobacco: Never Substance and Sexual Activity Alcohol use: Never Drug use: Never Sexual activity: Not on file Other Topics Concern Not on file Social History Narrative Not on file Social Drivers of Health Food Insecurity: No Food Insecurity (10/10/2024) Hunger Vital Sign Worried About Running Out of Food in the Last Year: Never true Ran Out of Food in the Last Year: Never true Transportation Needs: No Transportation Needs (10/10/2024) PRAPARE - Transportation Lack of Transportation (Medical): No Lack of Transportation (Non-Medical): No Intimate Partner Violence: Not At Risk (10/10/2024) Humiliation, Afraid, Rape, and Kick questionnaire Fear of Current or Ex-Partner: No Emotionally Abused: No Physically Abused: No Sexually Abused: No Housing Stability: Low Risk (10/10/2024) Housing Stability Vital Sign Unable to Pay for Housing in the Last Year: No Number of Times Moved in the Last Year: 0 Homeless in the Last Year: No Medications Medications Prior to Admission Medication Sig Dispense Refill Last Dose/Taking ascorbic acid, vitamin C, 250 mg oral tablet Take 4 tablets (1,000 mg) by mouth once daily. 10/01/2024 B-Complex with Vitamin C oral Tab Take 1 tablet by mouth once daily. 10/01/2024 calcium carbonate/vitamin D3 (CALCIUM 500 + D ORAL) Take by mouth. 10/01/2024 cholecalciferol, vitamin D3, 25 mcg, 1000 unit, 25 mcg (1,000 unit) oral tablet Take 2 tablets (50 mcg) by mouth once daily. 10/01/2024 Cimetidine 400 mg oral tablet Take 400 mg by mouth once daily. 10/10/2024 Morning clobetasol (TEMOVATE) 0.05 % Top cream Apply to skin as directed. PRN cyclobenzaprine (FLEXERIL) 10 mg oral tablet PRN dulaglutide (TRULICITY) 0.75 mg/0.5 mL SubQ pen Inject 0.75 mg under the skin every 7 (seven) days.Taking DULoxetine (CYMBALTA) 30 mg oral delayed release capsule Take 2 capsules (60 mg) by mouth once daily. 10/09/2024 Evening DULoxetine (CYMBALTA) 60 mg oral delayed release capsule 10/09/2024 Evening fluticasone (FLONASE) 50 mcg/actuation nasal spray Instill 1 spray into EACH nare ONCE DAILY. PRN HYDROmorphone (DILAUDID) 4 mg oral tablet Take 1 tablet (4 mg) by mouth every 4 (four) hours as needed. 10/07/2024 melatonin 3 mg oral Cap Take 10 mg by mouth once daily. 10/09/2024 Bedtime meloxicam (MOBIC) 15 mg oral tablet Take 1 tablet (15 mg) by mouth Daily. 10/05/2024 multivitamin (CERTAVITE) 18-400 mg-mcg oral tablet Take 1 tablet by mouth once daily. 10/01/2024 Nifedipine 30 mg oral extended release tablet 24 HR Take 1 tablet (30 mg) by mouth once daily. 10/10/2024 Morning olopatadine 0.1% (PATANOL) 0.1 % Opht ophthalmic (EYE) solution Instill 1 drop into EACH eye twice a day. 10/09/2024 Evening ondansetron (ZOFRAN) 4 mg oral ODT Dissolve 2 tablets (8 mg) in mouth every 8 (eight) hours as needed. PRN pregabalin (LYRICA) 50 mg oral capsule TAKE 1 CAPSULE BY MOUTH BETWEEN 5-6 PM AND TAKE 1 CAPSULE BYMOUTH BETWEEN 9-10 PM (Patient taking differently: Take 1 capsule (50 mg) by mouth at bedtime.) 180capsule 3 10/09/2024 Bedtime prochlorperazine (COMPAZINE) 10 mg oral tablet Take 1 tablet (10 mg) by mouth every 6 (six) hours as needed. Take 1/2 to 1 tablet by mouth every 6 hours as needed. Max 3 per 24 hours PRN rosuvastatin (CRESTOR) 5 mg oral tablet Take 1 tablet (5 mg) by mouth at bedtime. 10/09/2024 Bedtime topiramate (TOPAMAX) 50 mg oral tablet TAKE 2 TABLET BY MOUTH EVERY MORNING AND 3 TABLET BY MOUTH EVERY AT BEDTIME 450 tablet 3 10/10/2024 Morning Allergies Allergies Allergen Reactions Hyaluronate (Hyaluronic Acid) Other and Swelling, lips/tongue Synvisc reaction. Edema Acetaminophen Itching ONLY with the added codeine Aspirin Other GI Upset Aspirin Ad/Antacid [Asa-Calcium Qutc-Waw-Kdehmkkh] Other Stomach Upset Cat Dander Hives Dog Dander Itching Dust/Dust Mites (Calixto) Hives Esomeprazole Anaphylaxis Estradiol Other Alopecia Fentanyl Other Edema Gabapentin Hydrocodone Itching Hydrocodone-Acetaminophen Itching Latex Dermatitis Other Reaction(s): Irritation At Patch Site Use bandaids or paper tape ONLY. Use bandaids or paper tape ONLY. Other Reaction(s): Irritation At Patch Site Use bandaids or paper tape ONLY. Maple Flavor Hives Reacts to Mold on Maple. Determined at allergy test Metformin Other GI Upset Nitroimidazoles Nausea Penicillins Rash Pepcid [Famotidine] Anaphylaxis Percocet [Oxycodone-Acetaminophen] Itching Primidone Tremors Propranolol Tremors Ragweed Pollen Hives Semaglutide Other Reaction(s): Insomnia Synvisc [Hylan G-F 20] Other Edema Tape-Adhesive Strip (Calixto) Rash Unidentified Rash Sunlight- Water blisters ROS:Reviewed residents review of systems. Reviewed with patient. Agree with current review. Examination: Vitals reviewed. My examination consistent with the residents. Assesment and Plan: Active Hospital Problems Diagnosis Cervical radiculopathy [M54.12] My assessment and plan consistent with residents. I saw and examined this patient on 10/10/2024 Esequiel Villanueva Jr., MD documented in this encounter Nursing Notes * Frandy De La Torre RN - 10/12/2024 4:10 PM CDT Problem: Falls/Injury-Risk of Goal: Absence of Falls/Injury Outcome: Completed Problem: Health Care Directive Goal: Communicates Health Care Directive wishes in medical record Outcome: Completed Problem: Communication Goal: Demonstrates/exhibits ability to communicate needs effectively Outcome: Completed Problem: SAFETY Goal: *Communicates safety needs Outcome: Completed Problem: Tobacco Use or Exposure Goal: Adheres to tobacco-free environment Outcome: Completed Problem: Pain Goal: Exhibits reduction in pain to a level of acceptable comfort Outcome: Completed Problem: Venous Thromboembolism (VTE) Goal: Absence of venous thromboembolism (VTE) Outcome: Completed Problem: Mobility - Impaired Goal: Demonstrates ability to perform physical activity independently or with assistive devices as needed Outcome: Completed Goal: Verbalizes an understanding of immobility risks and complications Outcome: Completed Problem: Discharge Planning Goal: Establish appropriate post-hospitalization placement Outcome: Completed * Ingrid Arriaga RN - 10/12/2024 11:30 AM CDT Problem: Falls/Injury-Risk of Goal: Absence of Falls/Injury Outcome: Met this shift Flowsheets (Taken 10/12/2024 0932) Environmental Safety Interventions: Standard Interventions in Place Mobility Safety Interventions: Standard Interventions in Place Elimination Safety Interventions: Standard Interventions in Place Medication: Standard Interventions in Place Problem: Communication Goal: Demonstrates/exhibits ability to communicate needs effectively Outcome: Met this shift * Kalani Frank, PT - 10/12/2024 9:46 AM CDT Acute Physical Therapy Treatment Patient Name: Rosario Li Today's Date: 10/12/2024 Admission Date: 10/10/2024 Precautions Precautions Precautions: Spinal Precautions Comments: No brace ordered Assessment PT Assessment/Recommendations Assessment: Rosario did well with PT today, agreeable to session. She gets OOB with Jung, stands withSupA, ambulates a long distance (600 ft) with Lior, and ascends/descends a flight of stairs with Lior. Reports her will help her with socks and assist with bed mobility as needed. She was concerned about fever during session, measured temp and it read 98.7 deg F. From PT perspective, she issafe to return home when medically cleared with assist from spouse. Would benefit from followup PT when cleared by NSGY to participate in OPPT Recommendations for Nursing: Standby assist with gait belt, Up to chair 2- 3x/day, Ambulate 2-3x/day, Ambulate to bathroom Discharge Support Recommendations: Is safe to discharge to previous living situation with prior level of assist/support Post Acute Therapy Needs: Continued PT at next level of care Encounter Details General Diagnosis: Cervical radiculopathy Admission/Diagnosis Details: Pt underwent planned CERVICAL LAMINECTOMY FOR TRIAL OF SPINAL CORD STIMULATOR PADDLE ELECTRODES WITH NEUROMONITORING Pertinent Past Medical History: significant past medical history of cervical spondylosis without myelopathy, spinal stenosis in cervical region, hypertension, GERD, DMT2 and anxiety. Patient Seen In: Room Family/Caregiver Present: No Subjective Comments: agreeable, sidelying Subjective/Social History Home Setup Type of Home: House Lives With: Spouse, Mother, Roommate Home Layout: Two level Home Entry: Stairs to enter with rails Rails: Unilateral Number of stairs: 5 Stairs within Home: Stairs with rails Rails: Unilateral Number of stairs: 5+9 Bathroom Environment: Tub/shower combo, Shower chair Prior Level of Functional Mobility Independent with: All Mobility DME Used: Rolling walker, Single point cane DME Owned: Single point cane, Rolling walker, Manual wheelchair History of falls: Denies but reports multiple near falls d/t knee OA Comment: Reports mobility is limited by knee arthritis and other chronic conditions, but can mobilize without assist. works from home so he can assist as needed Pain Patient complained of headache, shoulder pain, doesn't rate Therapeutic Activity Bed Mobility Bed Mobility Supine to Sit: Minimal assist Dangling: Modified independent Bed Mobility Comments: Good logroll method, asks for MARKETING AGENT for last component of sup>sit. Reports her will be able to help her with this at home Transfers Sit to/from Stand Level of Assist: Supervision Assistive Device: No assistive device Comments: Smooth and safe rise to standing Gait Training Ambulation Bout 1 Distance (ft): 600 ft Assistive Device: No assistive device Level of Assist: Supervision Quality of Gait: Still with small steps, but pace and steadiness improves across gait bout. Stairs Bout 1 Method: Ambulation Number of Stairs: 10 UE Support: Unilateral Rail Level of Assist: Supervision Pattern: Reciprocal, Step to Comments: Generally completes reciprocally, discussed step-to pattern to manage knee pain if needed. No safety issues with this [facility] AM-PAC 6-Clicks Turning over in bed (including adjusting bed clothes, sheets, and blankets): Modified independent/independent Sitting down and standing up from a chair with arms: Modified independent/independent Moving from lying on back to sitting on the side of bed: Minimum/contact guard/standby assist Moving to and from a bed to a chair: Minimum/contact guard/standby assist Walk in hospital room?: Minimum/contact guard/standby assist Climbing 3-5 steps with a railing: Minimum/contact guard/standby assist AM-PAC 6 Clicks: Mobility Total Score: 20 The following scores are predictive of discharge disposition during acute hospitalization: Home= 20or greater; Home with Home Health=18; Continued skilled care at appropriate facility= 14 or less. Education/Safety Safety Interventions Fall Risk?: Yes Safety Interventions/Patient Disposition: Standard interventions, In chair, All needs within reach GOALS-The interventions during this session were provided to address the goals set forth on evaluation and are ongoing unless otherwise indicated. Time Frame Goals target date: 10/18/24 Supine to Sit Patient will perform supine to sit with: Modified independence Sit to/from Stand Patient will perform sit to/from stand transfer with: Modified independence Assistive Device: Least restrictive assistive device Gait Level of Assist: Modified independent Assistive Device: Least restrictive assistive device Distance: 150 Stair Negotiation Patient will perform stairs with: Supervision UE Support: Unilateral rail Number of Stairs: 10 Outcome: Goal met TIME SPENT WITH PATIENT PT Timed Code Treatment Minutes (outside of evaluation) PT Therapeutic Activity: 15 PT Gait Trainin PT Timed Code Treatment Minutes PT Total Billable Minutes: 23 Minutes * Damaris Meneses OT - 10/12/2024 9:43 AM CDT Occupational Therapy Acute Treatment Patient Name: Rosario Li Today's Date: 10/12/2024 Admission Date: 10/10/2024 ASSESSMENT/PLAN/RECOMMENDATIONS Assessment/Plan/Recommendations OT Assessment: pt seen today for OT session in room. had lengthy discussion with pt about spinal precautions and how they relate to ADLS/IADLs, see below for details. pt denies out of activity this date due to fever and fatigue. will continue to follow acutely and anticipate no furtehr OT needs past discharge Discharge Support Recommendations: Requires increased assist/support Requires assist with the following ADLs: Shower/bathing Requires assist with the following IADLs: Meal prep, Homemaking, Driving Post Acute Therapy Needs: No OT needs OT Assessment Results: Impaired ADLs, Impaired IADLs Strengths: Good strength, Ambulatory, Patient cooperation, Patient motivation Limitations/Discharge Barriers: Needs assist with ADL, Decreased activity tolerance Rehab Potential: Good Recommendations For Next Session: MR-ADLs INPATIENT REHAB FACILITY CANDIDATE Inpatient Rehabilitation Facility Candidate Appropriate for Acute Inpatient Rehab?: No GENERAL General Visit Type: Treatment Diagnosis: Cervical radiculopathy Admission/Diagnosis Details: Pt underwent planned CERVICAL LAMINECTOMY FOR TRIAL OF SPINAL CORD STIMULATOR PADDLE ELECTRODES WITH NEUROMONITORING Pertinent Past Medical History: significant past medical history of cervical spondylosis without myelopathy, spinal stenosis in cervical region, hypertension, GERD, DMT2 and anxiety. Patient Seen In: Room Family/Caregiver Present: No [employer] Worker Used?: NA Hearing: Within Functional Limits Subjective (Comment): agrees PRECAUTIONS Precautions Precautions: Spinal Precautions Comments: No brace ordered SAFETY INTERVENTIONS Safety Interventions Fall Risk?: Yes Safety Interventions/Patient Disposition: Standard interventions, Bed alarm on, In bed, Call light in hand, All needs within reach PATIENT IS FUNCTIONING FOLLOWS: Current ADL and IADL Status Current IADL Status Other (Comment): pt able to ID 2/3 spinal precautions indp. pt educated on spinal precautions and verbalizes understanding. pt educated on having phone anbd jadon at eye level to avoid bending at the neck, pt demostrates understanding with SBA. pt educated on completing UB dressing with head straight and having looser fitting clothing or button downs. pt educated on using two cups for brushing teeth to avoid bending over at the sink to spit. pt given spinal precautions handout. pt expresses that she has had a history of falls, pt given falls reduction handout and educated on how to reduce risk at home. pt reports having memory issues and pt educated and given memory compensation technique handout about creating routines, writing ideas down, using memory aides, reducing fatigue, etc. Functional Mobility Bed Mobility Supine to Sit: SBA Sit to Supine: SBA Bed Mobility Comments: vcs to log roll Activity Tolerance Endurance: Participates 20-30 min of therapy session AM-PAC Outcome Measure 6 Clicks Daily ADL AM-PAC Putting on and taking off regular lower body clothing?: A Little Bathing (including washing, rinsing, drying)?: A Little Toileting, which includes using toilet, bedpan or urinal?: A Little Putting on and taking off regular upper body clothing?: None Taking care of personal grooming such as brushing teeth?: None Eating meals?: None AM-PAC Daily Activity Raw Score: 21 AM-PAC Daily Activity CMS 0-100% Score: 32.79 AM-PAC Daily Activity t-Scale Score: 44.27 The following scores are predictive of discharge disposition during acute hospitalization: Home= 20.1; Home with Home Health= 17.9; TCU=14; IRF=13.6; LTACH=11.5 Please refer to narrative for assessment of functional performance and discharge recommendations asscores may not always reflect mobility, cognitive aspects of performance or instrumental activitiesof daily living (IADLs) PATIENT EDUCATION Patient Education Patient Education: Plan of care, Role of OT, Energy conservation TIME SPENT WITH PATIENT OT Timed Code Treatment Minutes OT Self-Care/Home Management: 12 OT Therapeutic Activity: 8 OT Total Minutes Spent with Patient Total Minutes Spent With Patient (billable): 20 Minutes GOALS Time Frame Short term goals target date: 10/18/24 jail goals target date: 10/25/24 Patient/Family Participation in Goal Setting Patient participated in goal setting: Yes Patient goal preference: To safely d/c home STG Grooming Patient will complete daily grooming and light hygiene task: independently Outcome: Goal Ongoing STG UE Dressing Patient will dress upper body donning/doffing: independently Outcome: Goal Ongoing STG LE Dressing Patient will dress lower body donning/doffing: independently Outcome: Goal Ongoing STG Toileting Patient will complete toileting: independently Outcome: Goal Ongoing Fci Goals Patient will complete ADLs including: hygiene/grooming, dressing, toileting, bathing, independently Outcome: Goal Ongoing * Gina Iglesias LSW - 10/12/2024 8:46 AM CDT Discharge Planning Initial Assessment Patients chart reviewed. Patient discussed in rounds. Patient Class: Inpatient Admitting Diagnoses: Cervical spondylosis without myelopathy [M47.812] Spinal stenosis in cervical region [M48.02] Cervical radiculopathy [M54.12] Admitted From: Home Living Arrangements: Spouse/significant other Support Systems: Spouse/significant other, Family members Kelton Li ([facility]) [phone] (M) Argenis Roy ([facility]) [phone] (M) Primary Decision Maker: Patient, no HCD on file. DME Prior to Admission: Cane, walker, manual wheelchair Anticipated Discharge Needs: No current SW needs anticipated at this time. Care Management Barriers to Discharge: No current SW barriers identified at this time. Care Coordination Initiated Care discussed during rounds with nursing, Chart reviewed HPI: This is a 54 year old female with a significant past medical history of cervical spondylosis without myelopathy, spinal stenosis in cervical region, hypertension, GERD, DMT2 and anxiety. She underwent cervical laminectomy for trial of spinal cord stimulator paddle electrodes with neuromonitoring by Dr. Horacio Stinson on 10/10/24. Developed a fever early in the morning on 10/11/24. Per chart review, patient comes from home where she lives with her . Patient appears independent with ADL's at baseline, her assists with IADL's. Patient owns a cane, walker, and manual wheelchair. Patient is on room air at baseline. She has a history of home care services but was not open to services prior to admission. Patient has no history of a TCU stay. Patient is established with PCP, Octaviano Tineo MD. Patient is able to arrange her own transport at time of discharge. Per therapy, anticipate that patient will be safe to return to prior level of living with 'ssupport at discharge. Care management will continue to follow. CLAUDIO Ram 5NW Dsp Engineer 10/12/2024 8:51 AM * Robles Gibbons RN - 10/12/2024 5:00 AM CDT Problem: Falls/Injury-Risk of Goal: Absence of Falls/Injury Outcome: Met this shift Problem: Tobacco Use or Exposure Goal: Adheres to tobacco-free environment Outcome: Met this shift Problem: Pain Goal: Exhibits reduction in pain to a level of acceptable comfort Outcome: Met this shift Problem: Mobility - Impaired Goal: Demonstrates ability to perform physical activity independently or with assistive devices as needed Outcome: Met this shift * Kenji Floyd RN - 10/11/2024 6:42 PM CDT Problem: Pain Goal: Exhibits reduction in pain to a level of acceptable comfort Outcome: Ongoing Problem: Communication Goal: Demonstrates/exhibits ability to communicate needs effectively Outcome: Met this shift Problem: Mobility - Impaired Goal: Demonstrates ability to perform physical activity independently or with assistive devices as needed Outcome: Met this shift * Kenji Floyd RN - 10/11/2024 1:36 PM CDT Problem: Communication Goal: Demonstrates/exhibits ability to communicate needs effectively Outcome: Met this shift * Robles Gibbons RN - 10/11/2024 4:34 AM CDT Problem: Falls/Injury-Risk of Goal: Absence of Falls/Injury Outcome: Met this shift Problem: Communication Goal: Demonstrates/exhibits ability to communicate needs effectively Outcome: Met this shift Problem: Pain Goal: Exhibits reduction in pain to a level of acceptable comfort Outcome: Met this shift * Kenji Floyd RN - 10/10/2024 3:43 PM CDT Problem: Pain Goal: Exhibits reduction in pain to a level of acceptable comfort Outcome: Ongoing Problem: Communication Goal: Demonstrates/exhibits ability to communicate needs effectively Outcome: Met this shift * Ines Garcia RN - 10/10/2024 2:05 PM CDT PACU POSTOP END OF SHIFT SBAR S: Situation/ B: Background Patient s/p cervical laminectomy for trial of spinal cord stimulator paddle electrodes under general anesthesia. To PACU at 1310 from OR. Placed on full monitors. PMH: anxiety, back pain, DM2, HTN, insomnia, sleep apnea A: Assessment Incision: neck/back Dressing: gauze, tape Pain: 6/10 - medicated with IV meds Nausea: better after Zofran BP 93/76 Pulse (!) 105 Temp 97.5 ??F (36.4 ??C) Resp 11 Ht 5' 5 (1.651 m) Wt 97.5 kg (215 lb) SpO2 96% BMI 35.78 kg/m?? Saturation level 96% on 2L NC R: Recommendation Patient to [facility] SBAR report given to SCOTTY Vogt receiving care Patient transported via cart with chart and belongings. documented in this encounter OR Notes * OR Surgeon - Horacio Mcdonald MD - 10/10/2024 11:53 AM CDT Preoperative diagnosis: Chronic upper extremity pain Postoperative diagnosis: Same Attending Surgeon: Zechariah Mcdonald Certified Medical Biller Surgeon: Monique Valera Procedure performed: Cervical laminectomy for placement of epidural paddle electrode for trial of spinal cord stimulation History of present illness: The patient is a 54-year-old female with a long history of upper extremity pain. Ultimately consideration of a trial of spinal cord stimulation was felt to be a reasonableapproach for her treatment the risk and benefits of the procedure were discussed other treatment options were discussed and at the inclusion of discussion she requested proceeding with surgery and signed the informed consent. Technique: After informed consent and assessment by anesthesia the patient was taken the operating placed under general trach anesthesia she was then placed in the Bentley head charger and placed prone on chest rolls making sure that her face breast extremities were all equally padded and protectedthe back of her head and neck was then shaved prepped and draped in usual and a linear incision in the midline from approximately the C2-C7 area was marked out infiltrated 1% lidocaine with epinephrine open with a 10 blade scalpel Bovie cautery was used to dissect down through the adipose tissue through the fascia in the midline and then in a subperiosteal manner exposing the spinous process and lamina of the cervical spine x-rays were taken to confirm position and once confirmed a combination of Leksell rongeur AMA drillbit and a high-speed drill and 2 Kerrison were used to remove a small portion of the superior aspect of the C6 in the inferior aspect of the C5 spinous process and lamina ligamentum flavum was removed and then there did appear to be epidural scar tissue given this a small laminotomy was performed rostrally further to cleared out the scar tissue and then the epidural paddle electrode was passed in the epidural space in the midline up to the appropriate level without difficulty a loop of the paddle electrode leads was inserted and secured into place with a 2-0 silk stitch. A right flank incision was then made with a 10 blade scalpel Bovie cautery was used to create a subcutaneous pocket for the extensions and then tunneled tubing was then passed from the flank incision up to the cervical incision the leads were passed down to the flank incision attached to the extension and then the extension and distal leads were placed in the subcutaneous pocket a stab incisi on was then made on the patient's left-hand side with tunnel tubing passed out through the stab incision and then the extension leads were passed out through that all the incisions were then irrigated out and closed in layers with a sterile dressing for the skin and for the exiting leads the patient was then transferred back spine taken on the Kelso head charger extubated and transferred the PACU. There were no complications identified during the procedure there was approximate 20 cc blood loss during the procedure Dr. Mcdonald was present for the rogers portions procedure and immediately availablefor the entire case physician bilingual executive assistant Moraima assisted during the procedure. Monique Valera provided assistance with preoperative positioning, prepping, and draping of the patient.The bilingual executive assistant provided vital operative assistance with retraction using instruments best providing the necessary exposure and visualization for the case, manipulation of tissues to achieve hemostasis, suction for visualization and assisted in wound closure. The bilingual executive assistant also helped place instrumentation under direct visualization of the surgeon. Postoperatively they assisted in the transfer of the patient off the operative table and transition into the post anesthesia care unit with transitionof care being made to the anesthesiologist. documented in this encounter Plan of Treatment Not on file documented as of this encounter Procedures Procedure Name Priority Date/Time Associated Diagnosis Comments BASIC METAB PROFILE Routine 10/11/2024 7 :03 AM CDT CBC (HGB,HCT,WBC,RBC,PL ATELET) Routine 10/11/2024 7:03 AM CDT POCT GLU METER Routine 10/10/2024 1:14 PM CDT XR C-ARM SPINE STAT 10/10/2024 12:45 PM CDT INSJ/RPLCMT SPINAL NPG/RCVR POCKET CRTJ&CONNJ 10/10/2024 10:53 AM CDT Cervical spondylosis without myelopathy Spinal stenosis in cervical region [place] IMPLTJ NSTIM ELTRDS PLATE/PADDLE EDRL 10/10/2024 10:53 AM CDT Cervical spondylosis without myelopathy Spinal stenosis in cervical region POCT GLU METER STAT 10/10/2024 8:28 AM CDT documented in this encounter Results * (ABNORMAL) Basic Metab Profile (10/11/2024 7:03 AM CDT) Sodium 142 136 - 145 mmol/L 10/11/2024 8:35 AM [facility] Potassium 3.9 3.4 - 5.1 mmol/L 10/11/2024 8:35 AM [facility] Chloride 110(H) 98 - 108 mmol/L 10/11/2024 8:35 AM [facility] Carbon Dioxide 22 20 - 31 mmol/L 10/11/2024 8:35 AM [facility] BUN (Urea Nitro) 7(L) 9 - 23 mg/dL 10/11/2024 8:35 AM [facility] Creatinine 0.94 0.55 - 1.02 mg/dL 10/11/2024 8:35 AM [facility] Est GFR (CKD-EPI) >60.00 >60.00 mL/min/1. 73m2 10/11/2024 8:35 AM [facility] Comment:Calculation based on the Chronic Kidney Disease Epidemiology Collaboration (CKD-EPI 2020) equation refit without adjustment for race. Glucose 144(H) 74 - 106 mg/dL 10/11/2024 8:35 AM [facility] Calcium, Serum 8.4(L) 8.7 - 10.4 mg/dL 10/11/2024 8:35 AM [facility] Anion Gap 10.0 0.0 - 15.0 mmol/L 10/11/2024 8:35 AM CDT [facility] Blood 10/11/2024 7:03 AM CDT 10/11/2024 7:21 AM CDT Swapnil Ruiz MD CHEMISTRY ORDERABLE Final Result [facility] [place], [place] [id number] * (ABNORMAL) CBC (HGB,HCT,WBC,RBC,Platelet) (10/11/2024 7:03 AM CDT) WBC 9.6 4.3 - 10.8 K/uL 10/11/2024 7:25 AM T [facility] RBC 3.97(L) 4.20 - 5.40 M/uL 10/11/2024 7:25 AM [facility] Hemoglobin 12.5 12.0 - 16.0 gm/dL 10/11/2024 7:25 AM [facility] Hematocrit 36.4 36.0 - 48.0 % 10/11/2024 7:25 AM [facility] MCV 92 80 - 100 fL 10/11/2024 7:25 AM [facility] MCH 32 27 - 33 pg 10/11/2024 7:25 AM [facility] MCHC 34 33 - 36 gm/dL 10/11/2024 7:25 AM [facility] RDW 13.3 11.5 - 14.5 % 10/11/2024 7:25 AM [facility] Platelet Count 145(L) 150 - 400 K/UL 10/11/2024 7:25 AM [facility] MPV 10.3 6.5 - 12 fL 10/11/2024 7:25 AM [facility] Blood 10/11/2024 7:03 AM CDT 10/11/2024 7:21 AM CDT us Swapnil Ruiz MD HEMATOLOGY ORDERABLE Final Resul t Performing Organization Address [facility] Co de Phone Number [facility] [address] [place] [id number] * (ABNORMAL) POCT Glucose Meter (10/10/2024 1:14 PM CDT) Only the most recent of2 resultswithin the time period is included. GLUCOSE WB METER 139(H) 60 - 100 mg/dL 10/10/2024 1:31 PM CDT [facility] Blood 10/10/2024 1:14 PM CDT 10/10/2024 1:31 PM CDT us Horacio Mcdonald MD LAB POINT OF CARE TEST RESULTS Final Result Performing Organization Address [facility] Co de Phone Number [facility] [phone] [phone] * XR C-ARM SPINE (10/10/2024 12:45 PM CDT) Anatomical Region Laterality Modality Computed Radiogr aphy 10/10/2024 1:18 PM CDT Impressions 10/10/2024 1:21 PM CDT IMPRESSION: 1. Procedural assistance. REPORT SIGNED BY DR. KENDELL KATZ Narrative 10/10/2024 1:21 PM CDT EXAM: XR C-ARM SPINE DATE: 10/10/2024 12:44 CLINICAL DATA: C-spine stimulator ADDITIONAL CLINICAL DATA: COMPARISON: None. NUMBER OF VIEWS: 2 FINDINGS: Approximately 2 seconds of fluoroscopy. Images demonstrate anterior fusion hardware located most superiorly at the C4 level. Posterior instrumented fusion hardware is visible most superiorly at the C5 level. The inferior aspect of this hardware is not able to be confidently identified. Electrode projects along the posterior aspect of the upper cervical canal. Procedure Note Kendell Katz MD - 10/10/2024 EXAM: XR C-ARM SPINE DATE: 10/10/2024 12:44 CLINICAL DATA: C-spine stimulator ADDITIONAL CLINICAL DATA: COMPARISON: None. NUMBER OF VIEWS: 2 FINDINGS: Approximately 2 seconds of fluoroscopy. Images demonstrate anterior fusionhardware located most superiorly at the C4 level. Posterior instrumentedfusion hardware is visible most superiorly at the C5 level. The inferioraspect of this hardware is not able to be confidently identified.Electrode projects along the posterior aspect of the upper cervicalcanal. IMPRESSION IMPRESSION: 1. Procedural assistance. REPORT SIGNED BY DR. KENDELL KATZ us Horacio Mcdonald MD XRAY ORDERABLE Final Result documented in this encounter Visit Diagnoses Diagnosis Cervical radiculopathy- Primary Brachial neuritis or radiculitis nos documented in this encounter Admitting Diagnoses Diagnosis Cervical radiculopathy Brachial neuritis or radiculitis nos documented in this encounter Administered Medications Inactive Administered Medications - up to 3 most recent administrations Medication Order MAR Action Action Date Dose Rate Site saline FLUSH syringe 10 mL 10 mL, Intravenous, NEEDED, Starting on Tue10/10/24 at 0758, Until Tue10/10/24 at 1310, Pre-Op, Line Care Given 10/10/2024 8:47 AM CDT 10 mL acetaminophen (TYLENOL) rectal suppository 650 mg 650 mg, Rectal, FOUR TIMES A DAY, First dose (after last modification) on [facility] 10/11/24 at 0600, Until Discontinued, Post-Op acetaminophen (TYLENOL) tablet 1,000 mg 1,000 mg, oral, ONCE, 1 dose, On Tue10/10/24 at 0800, Pre-Op Given 10/10/2024 8:46 AM CDT 1,000 mg acetaminophen (TYLENOL) tablet 1,000 mg 1,000 mg, oral, FOUR TIMES A DAY, First dose on Tue10/10/24 at 1800, Until Discontinued, Post-Op Given 10/10/2024 9:03 PM CDT 1,000 mg acetaminophen (TYLENOL) tablet 1,000 mg 1,000 mg, oral, FOUR TIMES A DAY, First dose (after last modification) on [facility] 10/11/24 at 0600, Until Discontinued, Post-Op Given 10/12/2024 12:24 PM CDT 1,000 mg Given 10/12/2024 7:51 AM CDT 1,000 mg Given 10/11/2024 9:42 PM CDT 1,000 mg calcium carbonate (TUMS) chewable tablet 500 mg 500 mg (1 tablet), oral, THREE TIMES A DAY NEEDED, Starting on Tue10/12/24 at 0130, Until Tue10/12/24 at 2253, GI Discomfort Given 10/12/2024 1:36 AM CDT 500 mg cyclobenzaprine (FLEXERIL) tablet 5-10 mg 5-10 mg, oral, THREE TIMES A DAY NEEDED, Starting on Tue10/10/24 at 1438, Until Tue10/12/24 at 2253, muscle spasm Given 10/12/2024 7:52 AM CDT 10 mg Given 10/11/2024 7:56 PM CDT 10 mg diphenhydrAMINE (BENADRYL) injection 25 mg 25 mg, Intravenous, EVERY 6 HOURS NEEDED, Starting on Tue10/10/24 at 1438, Until Tue10/12/24 at 2253, Post-Op, itching Given 10/12/2024 10:53 AM CDT 25 mg Given 10/11/2024 10:19 PM CDT 25 mg Given 10/10/2024 11:09 PM CDT 25 mg DULoxetine (CYMBALTA) delayed release capsule 60 mg 60 mg, oral, EVERY EVENING, First dose on Tue10/10/24 at 2000, Until Discontinued Given 10/11/2024 7:56 PM CDT 60 mg Given 10/10/2024 7:46 PM CDT 60 mg HYDROmorphone (Dilaudid) syringe 0.2-0.4 mg 0.2-0.4 mg, Intravenous, EVERY 5 MINUTES NEEDED, 5 doses, Starting on Tue10/10/24 at 1252, Until Tue10/10/24 at 1421, Phase 1/2, POST-ACUTE PAIN MANAGEMENT Given 10/10/2024 1:48 PM CDT 0.4 mg Given 10/10/2024 1:33 PM CDT 0.4 mg HYDROmorphone (DILAUDID) tablet 4-8 mg 4-8 mg, oral, EVERY 3 HOURS NEEDED, Starting on Tue10/10/24 at 1438, Until Tue10/12/24 at 2253, pain Given 10/12/2024 6:25 AM CDT 4 mg Given 10/11/2024 3:57 PM CDT 4 mg Given 10/11/2024 10:41 AM CDT 4 mg hydrOXYzine HCl (VISTARIL) injection 25-50 mg 25-50 mg, IntraMUSCULAR, EVERY 4 HOURS NEEDED, Starting on Tue10/10/24 at 1438, Until Tue10/12/24 at 2253, Post-Op, for pain with opioid if opioid alone is not adequately controlling pain. hydrOXYzine pamoate (Vistaril) capsule 25-50 mg 25-50 mg, oral, EVERY 4 HOURS NEEDED, Starting on Tue10/10/24 at 1438, Until Tue10/12/24 at 2253, Post-Op, for pain with opioid if opioid alone is not adequately controlling pain. Given 10/11/2024 8:22 AM CDT 50 mg Given 10/10/2024 7:45 PM CDT 50 mg ketorolac (ToradoL) injection 15 mg 15 mg, Intravenous, EVERY 6 HOURS, 4 doses, First dose on Tue10/11/24 at 1400, Last dose on Tue10/12/24 at 0800, Maximum duration of treatment is 5 days. Given 10/12/2024 7:53 AM CDT 15 mg Given 10/12/2024 1:12 AM CDT 15 mg Given 10/11/2024 9:42 PM CDT 15 mg lidocaine (XYLOCAINE) ointment topical, NEEDED, Starting on Tue10/11/24 at 1317, Until Tue10/12/24 at 2253, Pain, do not place directly on incision melatonin tablet 3 mg 3 mg, oral, AT BEDTIME, First dose on Tue10/10/24 at 2200, Until Discontinued Given 10/11/2024 9:42 PM CDT 3 mg Given 10/10/2024 9:03 PM CDT 3 mg NIFEdipine (Adalat CC) extended release tablet 24 HR 30 mg 30 mg, oral, DAILY, First dose on Tue10/11/24 at 0800, Until Discontinued Given 10/11/2024 8:23 AM CDT 30 mg ondansetron (Zofran) disintegrating tablet 4 mg 4 mg, oral, EVERY 8 HOURS NEEDED, Starting on Tue10/10/24 at 1438, Until Tue10/12/24 at 2253, Post-Op, nausea & vomiting Given 10/11/2024 8:00 PM CDT 4 mg ondansetron (Zofran) injection 4 mg 4 mg, Intravenous, ONCE NEEDED, 1 dose, Starting on Tue10/10/24 at 1252, Until Tue10/10/24 at 1322, Phase 1/2, nausea & vomiting, for nausea while in recovery area if not given within the past 6 hours. Given 10/10/2024 1:22 PM CDT 4 mg ondansetron (Zofran) injection 4 mg 4 mg, Intravenous, EVERY 8 HOURS NEEDED, Starting on Tue10/10/24 at 1438, Until Tue10/12/24 at 2253, Post-Op, nausea & vomiting Given 10/11/2024 9:27 AM CDT 4 mg polyethylene glycol (MIRALAX) packet 17 g 17 g, oral, DAILY, First dose on Tue10/10/24 at 1600, Until Discontinued Given 10/12/2024 7:53 AM CDT 17 g pregabalin (LYRICA) capsule 50 mg 50 mg, oral, AT BEDTIME, First dose on Tue10/10/24 at 2200, Until Discontinued Given 10/11/2024 9:42 PM CDT 50 mg Given 10/10/2024 9:03 PM CDT 50 mg rosuvastatin (CRESTOR) tablet 10 mg 10 mg, oral, AT BEDTIME, First dose on Tue10/10/24 at 2200, Until Discontinued Given 10/11/2024 9:42 PM CDT 10 mg Given 10/10/2024 9:03 PM CDT 10 mg senna (SENOKOT) tablet 17.2 mg 17.2 mg (2 tablet), oral, TWICE A DAY NEEDED, Starting on Tue10/10/24 at 1438, Until Tue10/12/24 at 2253, Constipation, 1st choice Given 10/11/2024 10:23 PM CDT 17.2 mg topiramate (TOPAMAX) tablet 100 mg 100 mg, oral, EVERY MORNING, First dose on Tue10/11/24 at 0800, Until Discontinued Given 10/12/2024 7:52 AM CDT 100 mg Given 10/11/2024 8:22 AM CDT 100 mg topiramate (TOPAMAX) tablet 150 mg 150 mg, oral, EVERY EVENING, First dose on Tue10/10/24 at 2000, Until Discontinued Given 10/11/2024 7:56 PM CDT 150 mg Given 10/10/2024 7:46 PM CDT 150 mg documented in this encounter Active and Recently Administered Medications Times are shown in CDT. Scheduled Medication Order 10/10/2024 10/11/2024 10/12/2024 acetaminophen (TYLENOL) rectal suppository 650 mg(Linked Group 1) 650 mg, Rectal, FOUR TIMES A DAY, First dose (after last modification) on Tue10/11/24 at 0600, Until Discontinued, Post-Op 0548 (See Alternative - Provider: Erin Rosario)122 (See Alternative - Provider: Kenji Floyd, SCOTTY)172 (See Alternative - Provider: Kenji Floyd RN)214 (See Alternative - Provider: Erin Rosario) 075 (See Alternative - Provider: Ingrid Arriaga, SCOTTY)1224 (See Alternative - Provider: Ingrid Arriaga RN) acetaminophen (TYLENOL) tablet 1,000 mg (COMPLETED) 1,000 mg, oral, ONCE, 1 dose, On Tue10/10/24 at 0800, Pre-Op 0846 (Given - Provider: Bibi Silva RN - Comment: pre-op; patient said she has tolerated in past) acetaminophen (TYLENOL) tablet 1,000 mg (CANCELED) 1,000 mg, oral, FOUR TIMES A DAY, First dose on Tue10/10/24 at 1800, Until Discontinued, Post-Op 1800 (Canceled Entry - Provider: Robles Gibbons RN)2103 (Given - Provider: Erin Rosario) acetaminophen (TYLENOL) tablet 1,000 mg(Linked Group 1) 1,000 mg, oral, FOUR TIMES A DAY, First dose (after last modification) on Tue10/11/24 at 0600, Until Discontinued, Post-Op 0548 (Given - Provider: Erin Rosario)1222 (Given - Provider: Kenji Floyd RN)172 (Given - Provider: Kenji Floyd RN)214 (Given - Provider: Erin Rosario) 075 (Given - Provider: Ingrid Arriaga RN)1224 (Given - Provider: Ingrid Arriaga RN) clindamycin in D5W 50 mL (CLEOCIN) IV piggyback 900 mg (COMPLETED) 900 mg, Intravenous, ONCE ON INDUCTION, 1 dose, Starting on Tue10/10/24 at 0900, Until Tue10/10/24 at 1109, Intra-Op, Administer over 30 Minutes 1109 (Given - Provider: Linda Leyva APRN, [employer]) DULoxetine (CYMBALTA) delayed release capsule 60 mg 60 mg, oral, EVERY EVENING, First dose on Tue10/10/24 at 2000, Until Discontinued 194 (Given - Provider: Robles Gibbons RN) 1955 (Given - Provider: Erin Rosario) ketorolac (ToradoL) injection 15 mg (COMPLETED) 15 mg, Intravenous, EVERY 6 HOURS, 4 doses, First dose on Tue10/11/24 at 1400, Last dose on Tue10/12/24 at 0800, Maximum duration of treatment is 5 days. 1550 (Given - Provider: Kenji Floyd RN)2141 (Given - Provider: Erin Rosario) 011 (Given - Provider: Erin Rosario)075 (Given - Provider: Ingrid Arriaga RN) melatonin tablet 3 mg 3 mg, oral, AT BEDTIME, First dose on Tue10/10/24 at 2200, Until Discontinued 2102 (Given - Provider: Erin Rosario) 2141 (Given - Provider: Erin Rosario) NIFEdipine (Adalat CC) extended release tablet 24 HR 30 mg 30 mg, oral, DAILY, First dose on Tue10/11/24 at 0800, Until Discontinued 08 (Given - Provider: Kenji Floyd RN) 0800 (Not Given - Provider: Ingrid Arriaga RN - Reason: deferred - Comment: notified of BP 116/58. told editorial writer to hold medication.) polyethylene glycol (MIRALAX) packet 17 g 17 g, oral, DAILY, First dose on Tue10/10/24 at 1600, Until Discontinued 1524 (Declined - Provider: Kenji Floyd RN - Comment: I had a large BM yesterday, per Pt.) 0824 (Declined - Provider: Kenji Floyd RN) 0753 (Given - Provider: Ingrid Arriaga RN) pregabalin (LYRICA) capsule 50 mg 50 mg, oral, AT BEDTIME, First dose on Tue10/10/24 at 2200, Until Discontinued 2102 (Given - Provider: Erin Rosario) 2141 (Given - Provider: Erin Rosario) rosuvastatin (CRESTOR) tablet 10 mg 10 mg, oral, AT BEDTIME, First dose on Tue10/10/24 at 2200, Until Discontinued 2102 (Given - Provider: Erin Rosario) 2141 (Given - Provider: Erin Rosario) topiramate (TOPAMAX) tablet 100 mg 100 mg, oral, EVERY MORNING, First dose on Tue10/11/24 at 0800, Until Discontinued 821 (Given - Provider: Kenji Floyd RN) 751 (Given - Provider: Ingrid Arriaga RN) topiramate (TOPAMAX) tablet 150 mg 150 mg, oral, EVERY EVENING, First dose on Tue10/10/24 at 2000, Until Discontinued 1945 (Given - Provider: Robles Gibbons RN) 1955 (Given - Provider: Erin Rosario) Continuous Medication Order 10/10/2024 10/11/2024 10/12/2024 phenylephrine (DELORIS-SYNEPHRINE) 32 mg in sodium chloride 0.9 % 100 mL IV infusion (conc: 0.32 mg/mL) for OR (CANCELED) 0-200 mcg/min (0-37.5 mL/hr), Intravenous, TITRATE, Starting on Tue10/10/24 at 1015, Until Tue10/10/24 at 1421, Titrate by 10 mcg/min if MAP is 60-65 and by 20 mcg/min if MAP is less than 60. Notify provider for rate greater than 180 mcg/min 1109 (New Bag - Provider: Linda Leyva APRN, [employer])1118 (Rate Change - Provider: Linda Leyva, DAVID, [employer])1126 (Rate Change - Provider: Linda Leyva APRN, [employer])1136 (Rate Change - Provider: Linda Leyva, DAVID, [employer])1254 (Rate Change - Provider: Linda Leyva, DAVID, [employer])1305 (Stopped - Provider: Linda Leyva, DAVID, [employer]) PRN Medication Order 10/10/2024 10/11/2024 10/12/2024 saline FLUSH syringe 10 mL (CANCELED) 10 mL, Intravenous, NEEDED, Starting on Tue10/10/24 at 0758, Until Tue10/10/24 at 1310, Pre-Op, Line Care 0847 (Given - Provider: Cleopatra Pereira, SCOTTY) bacitracin (BACIGUENT) packet (CANCELED) INTRA-PROCEDURE NEEDED, Starting on Tue10/10/24 at 1057, Until Tue10/10/24 at 1310, Intra-Op, per procedure 1057 (Given - Provider: Horacio Mcdonald MD - Comment: applied to bentley pins x3) benzocaine-menthol (CEPACOL) lozenge 1 lozenge 1 lozenge, oral, EVERY 2 HOURS NEEDED, Starting on Tue10/10/24 at 1438, Until Tue10/12/24 at 2253, Post-Op, sore throat bisacodyl (DULCOLAX) delayed released tablet 5-15 mg 5-15 mg, oral, DAILY NEEDED, Starting on Tue10/10/24 at 1438, Until Tue10/12/24 at 2253, Constipation, 3rd choice calcium carbonate (TUMS) chewable tablet 500 mg 500 mg (1 tablet), oral, THREE TIMES A DAY NEEDED, Starting on Tue10/12/24 at 0130, Until Tue10/12/24 at 2253, GI Discomfort 0136 (Given - Provider: Erin Rosario) cyclobenzaprine (FLEXERIL) tablet 5-10 mg 5-10 mg, oral, THREE TIMES A DAY NEEDED, Starting on Tue10/10/24 at 1438, Until Tue10/12/24 at 2253, muscle spasm 1956 (Given - Provider: Erin Rosario) 0752 (Given - Provider: Ingrid Arriaga RN) diphenhydrAMINE (BENADRYL) injection 25 mg 25 mg, Intravenous, EVERY 6 HOURS NEEDED, Starting on Tue10/10/24 at 1438, Until Tue10/12/24 at 2253, Post-Op, itching 1531 (Given - Provider: Kenji Floyd RN)2309 (Given - Provider: Robles Gibbons RN) 2219 (Given - Provider: Erin Rosario) 1053 (Given - Provider: Ingrid Arriaga RN) HYDROmorphone (Dilaudid) syringe 0.2-0.4 mg (CANCELED) 0.2-0.4 mg, Intravenous, EVERY 5 MINUTES NEEDED, 5 doses, Starting on Tue10/10/24 at 1252, Until Tue10/10/24 at 1421, Phase 1/2, POST-ACUTE PAIN MANAGEMENT 1333 (Given - Provider: Ines Garcia RN)1348 (Given - Provider: Ines Garcia RN) HYDROmorphone (Dilaudid) syringe 0.2-1 mg 0.2-1 mg, Intravenous, EVERY 3 HOURS NEEDED, Starting on Tue10/10/24 at 1438, Until Tue10/12/24 at 2253, Post-Op, Pain, when NOT taking PO, Pain, if oral opioid not effective or tolerated HYDROmorphone (DILAUDID) tablet 4-8 mg 4-8 mg, oral, EVERY 3 HOURS NEEDED, Starting on Tue10/10/24 at 1438, Until Tue10/12/24 at 2253, pain 1524 (Given - Provider: Kenji Floyd RN)1946 (Given - Provider: Robles Gibbons RN)2309 (Given - Provider: Robles Gibbnos RN) 0351 (Given - Provider: Erin Rosario - Comment: Given by NICOLAS Parks)1041 (Given - Provider: Kenji Floyd RN)1557 (Given - Provider: Kenji Floyd RN) 0625 (Given - Provider: Robles Gibbons RN) hydrOXYzine HCl (VISTARIL) injection 25-50 mg(Linked Group 2) 25-50 mg, IntraMUSCULAR, EVERY 4 HOURS NEEDED, Starting on Tue10/10/24 at 1438, Until Tue10/12/24 at 2253, Post-Op, for pain with opioid if opioid alone is not adequately controlling pain. 194 (See Alternative - Provider: Robles Gibbons RN) 0822 (See Alternative - Provider: Kenji Floyd RN) hydrOXYzine pamoate (Vistaril) capsule 25-50 mg(Linked Group 2) 25-50 mg, oral, EVERY 4 HOURS NEEDED, Starting on Tue10/10/24 at 1438, Until Tue10/12/24 at 2253, Post-Op, for pain with opioid if opioid alone is not adequately controlling pain. 194 (Given - Provider: Robles Gibbons RN) 08 (Given - Provider: Kenji Floyd RN) lidocaine (XYLOCAINE) ointment topical, NEEDED, Starting on Radha 10/11/24 at 1317, Until Tue10/12/24 at 2253, Pain, do not place directly on incision lidocaine 1%- EPINEPHrine 1:100,000 (XYLOCAINE-EPINEPHRINE) injection (CANCELED) INTRA-PROCEDURE NEEDED, Starting on Tue10/10/24 at 1152, Until Tue10/10/24 at 1310, Intra-Op 1152 (Given - Provider: Nolvia Valera PA-C) magnesium oxide (MAG-OX) tablet 400 mg 400 mg, oral, TWICE A DAY NEEDED, Starting on Tue10/10/24 at 1438, Until Tue10/12/24 at 2253, Constipation, 2nd choice naloxone (NARCAN) injection 0.1 mg 0.1 mg, Intravenous, EVERY 1 MINUTE PRN, Starting on Tue10/10/24 at 1438, Until Tue10/12/24 at 2253, Post-Op, Opiate Reversal ondansetron (Zofran) disintegrating tablet 4 mg(Linked Group 3) 4 mg, oral, EVERY 8 HOURS NEEDED, Starting on Tue10/10/24 at 1438, Until Tue10/12/24 at 2253, Post-Op, nausea & vomiting 0927 (See Alternative - Provider: Kenji Floyd RN)1999 (Given - Provider: Erin Rosario) ondansetron (Zofran) injection 4 mg (COMPLETED) 4 mg, Intravenous, ONCE NEEDED, 1 dose, Starting on Tue10/10/24 at 1252, Until Tue10/10/24 at 1322, Phase 1/2, nausea & vomiting, for nausea while in recovery area if not given within the past 6 hours. 1322 (Given - Provider: Ines Garcia RN) ondansetron (Zofran) injection 4 mg(Linked Group 3) 4 mg, Intravenous, EVERY 8 HOURS NEEDED, Starting on Tue10/10/24 at 1438, Until Tue10/12/24 at 2253, Post-Op, nausea & vomiting 0927 (Given - Provider: Kenji Floyd RN)1999 (See Alternative - Provider: Erin Rosario) senna (SENOKOT) tablet 17.2 mg 17.2 mg (2 tablet), oral, TWICE A DAY NEEDED, Starting on Tue10/10/24 at 1438, Until Tue10/12/24 at 2253, Constipation, 1st choice 2223 (Given - Provider: Erin Rosario) Linked Groups Order Group 1: acetaminophen (TYLENOL) tablet 1,000 mgJump to med 1,000 mg, oral, FOUR TIMES A DAY, First dose (after last modification) on Radha 10/11/24 at 0600, Until Discontinued, Post-Op Or acetaminophen (TYLENOL) rectal suppository 650 mgJump to med 650 mg, Rectal, FOUR TIMES A DAY, First dose (after last modification) on Radha 10/11/24 at 0600, Until Discontinued, Post-Op Group 2: hydrOXYzine pamoate (Vistaril) capsule 25-50 mgJump to med 25-50 mg, oral, EVERY 4 HOURS NEEDED, Starting on Tue10/10/24 at 1438, Until Tue10/12/24 at 2253, Post-Op, for pain with opioid if opioid alone is not adequately controlling pain. Or hydrOXYzine HCl (VISTARIL) injection 25-50 mgJump to med 25-50 mg, IntraMUSCULAR, EVERY 4 HOURS NEEDED, Starting on Tue10/10/24 at 1438, Until Tue10/12/24 at 2253, Post-Op, for pain with opioid if opioid alone is not adequately controlling pain. Group 3: ondansetron (Zofran) injection 4 mgJump to med 4 mg, Intravenous, EVERY 8 HOURS NEEDED, Starting on Tue10/10/24 at 1438, Until Tue10/12/24 at 2253, Post-Op, nausea & vomiting Or ondansetron (Zofran) disintegrating tablet 4 mgJump to med 4 mg, oral, EVERY 8 HOURS NEEDED, Starting on Tue10/10/24 at 1438, Until Tue10/12/24 at 2253, Post-Op, nausea & vomiting documented in this encounter Care Teams Claims Adjuster Supervisor Relationship Specialty Start Date End Date Terrance Glaser MD [address] [facility] [address] [place] [address] PCP - Neurologist Neurology 01/07/21 Octaviano Tineo MD [address] [place] [address] PCP - General Family Medicine 10/02/24 documented as of this encounter
--- OUTSIDE RECORDS SUMMARY | 2024-10-10 10:05 | XMS_ITS | Encounter Summary ---
Author Organization [facility] Address [address] [place] [address] Care Team Providers Care Pilot Manager Name Role Phone Terrance Glaser MD Unavailable [phone] Octaviano Tineo MD Primary Care Provider [phone] Reason for Visit * Inpatient Admission (Routine) [...] Expiration Date Visits Re quested Visits Authorized [id number] 1 1 Encounter Details Date Type Department Care Team (Late st Contact Info) Description 10/10/2024 10:05 AM CDT - 10/10/2024 12:20 PM CDT Surgery [facility] Operating Room [address] [place] [address] Horacio Mcdonald MD [address] [place] [address] CERVICAL LAMINECTOMY FOR TRIAL OF SPINAL CORD STIMULATOR PADDLE ELECTRODES WITH NEURO-MONITORING Surgery Details Date/Time Status Location OR Service Patient Class Case Class Case Type Trauma Case? 10/10/2024 10:05 AM Posted NMR ORS 10 Neurosurgery Admit Following Surgery Panel 1 Procedure LRB Anes Op Region Wound Class Comments CERVICAL LAMINECTOMY FOR TRI AL OF SPINAL CORD STIMULATOR PADDLE ELECTRODES WITH NEURO-MONITORING N/A General Spine, Lumbar Clean ( I) Surgeon Surgeon Role Service Panel Horacio Mcdonald MD Primary Neurosurgery 1 documented in this encounter Social History Tobacco Use Types Packs/Day Years Used Date Smoking Tobacco: Former Cigarettes Q uit: 1996 Smokeless Tobacco: Never Alcohol Use Standard Drinks/Week Comments Never 0 (1 standard drink = 0.6 oz pur e alcohol) [facility] Utilities Answer Date Recorded In the past 12 months has th e [employer], gas, oil, or water [employer] threatened to shut off services in your [...] any time in the past 12 m [facility], were you homeless or living in a [facility] (including now)? No 10/10/2024 Comments No Sex [...] Sign Reading Time Taken Comments Blood Pressure 125/90 10/10/2024 8:06 AM CDT Pulse 88 10/10/2024 8:06 AM CDT Temperature 36.4 C (97.6 F) 10/10/2024 8:06 AM CDT Respiratory Rate 16 10/10/2024 8:06 AM CDT Oxygen Saturation 97% 10/10/2024 8:06 AM CDT Inhaled Oxygen Concentration - - Weight 97.5 kg (215 lb) 10/10/2024 8:06 AM CDT Height 165.1 cm (5' 5) 10/10/2024 8:06 AM CDT Body Mass Index 35.78 10/10/2024 3:34 PM CDT documented in this encounter Discharge Summaries * Lara Cox, MIXING SUPERVISOR, CHIEF SCHOOL FINANCE OFFICER - 10/12/2024 10:33 AM CDT Images from [...] Your Medications These medications were sent to [address] [address] Hours: Mon-Fri: 7:30AM-6PM / Sat: 9AM-3PM / [...] re-establish your bowel program. You may take qfid-aht-hdccuye stool medications as directed by the package insert. Diet: Level 7 Regular Liquid: Level 0: Thin Liquids Special instructions: NA FOLLOW-UP: She should see [facility] for first recheck in 2-4 weeks. Call for appointment if one not already in place. [phone] Option [address] Mcdonald [phone] Total time spent for discharge on date of discharge: 20 minutes. Lara Cox APRN, CNP [facility] [place] Cosigned by Horacio Mcdonald MD at 10/13/2024 [...] 10/12/2024 4:31 PM CDT Rosario Li [id number] P: Discharge A: Discharged via wheelchair to home at 1631 escorted by state tested nursing assistant I: Discharge information and arrangements included: review [...] PIV D- Discharge: Expected 10/12 * Lara Cox APRN, CHIEF SCHOOL FINANCE OFFICER - 10/12/2024 9:10 AM CDT Neurosurgery Progress [...] No narcotics sent. Lara Cox APRN, LAKIA [facility] [place] Office: [phone] * Ronald Loyd, - 10/12/2024 8:09 AM CDT Date of service: 10/12/2024 Admission date: 10/10/[address] [facility] PROGRESS NOTE Rosario Li is a 54 [...] continue to monitor. 1. Hypertension, stable - INVESTIGATION MANAGER nifedipine held this morning. BP 116/58. 2. GERD, stable - TUMS prn 3. DMT2, stable - Continue INVESTIGATION MANAGER Rosuvastatin 4. Anxiety, stable - Continue INVESTIGATION MANAGER hydroxyzine 5. Depression - Continue INVESTIGATION MANAGER duloxitine 5. Small fiber Neuropathy, stable - Continue INVESTIGATION MANAGER lyrica 6. Constipation - Miralax daily - Senna prn - Dulcolax prn 7. Insomnia - Continue INVESTIGATION MANAGER melatonin FEN/Access/Sims - IV Prophylaxis - SCDs [...] dry and intact. Small lesionon the left catholic. Staple just superior to the right ear. [...] LOYD DO Care reviewed with Dr. Dr. Serna Cosigned by Gemma Serna MD at 10/12/2024 [...] x1 D- Discharge: TBD * Ronald Loyd, - 10/11/2024 10:56 AM CDT Date of service: 10/11/2024 Admission date: 10/10/[address] [facility] PROGRESS NOTE Rosario Li is a 54 [...] to monitor. 1. Hypertension, stable - Continue INVESTIGATION MANAGER Nifedipine 2. GERD, stable - Famotidine 20 mg Q 12 hrs 3. DMT2, stable - Continue INVESTIGATION MANAGER Rosuvastatin 4. Anxiety, stable - Continue INVESTIGATION MANAGER hydroxyzine 5. Depression - Continue INVESTIGATION MANAGER duloxitine 5. Small fiber Neuropathy, stable - Continue INVESTIGATION MANAGER lyrica 6. Constipation - Miralax daily - Senna prn - Dulcolax prn 7. Insomnia - Continue INVESTIGATION MANAGER melatonin FEN/Access/Sims - IV Prophylaxis - SCDs [...] radiculopathy Gemma Serna MD * Lara Cox, MIXING SUPERVISOR, CHIEF SCHOOL FINANCE OFFICER - 10/11/2024 10:48 AM CDT Neurosurgery Progress [...] Plan dc home tomorrow Lara Cox APRN, CNP 10:49 AM [facility] [place] Office: [phone] * Erin Rosario - 10/11/2024 5:42 AM CDT Med-Surg Care [...] back dressing last night. Temperature hit 101.5 [id number], MD notified. Recheck was 101.6, CBC and [...] to call for help, name of assigned healthcare technician, PatientInformation booklet, Handwashing, Respiratory Hygiene, initial physician [...] Patient Seen In: Room Family/Caregiver Present: No Coffee Supervisor Used?: NA Hearing: Within Functional Limits Subjective [...] needs assist with: Meal Preparation, Shopping, Homemaking, Boat Painter, Yardwork PRIOR FUNCTION MOBILITY Prior Level of [...] Strength RUE Strength: Functional LUE Strength: Functional AM-[facility] Outcome Measure 6 Clicks Daily ADL AM-PAC [...] None AM-PAC Daily Activity Raw Score: 21 AM-[facility] Daily Activity CMS 0-100% Score: 32.79 AM-PAC [...] Frame Short term goals target date: 10/18/24 halfway goals target date: 10/25/24 Patient/Family Participation in [...] will complete toileting: independently Outcome: Goal Ongoing Skilled Nursing Goals Patient will complete ADLs including: hygiene/grooming, [...] in upcoming sessions. From PT perspective, anticipate nataliawill be able to return home with spouse [...] today. Agreeable to attempting in upcoming sessions [facility] AM-[facility] 6-Clicks Turning over in bed (including adjusting [...] steps with a railing: Minimum/contact guard/standby assist -[facility] 6 Clicks: Mobility Total Score: 19 The [...] Note Patient Name: Rosario Li Address: [address] [place] [address] Age: 54 y.o. Sex: female Admission Date/Time: [...] acid), Acetaminophen, Aspirin, Aspirin ad/antacid [asa- calcium ompu-icc-[id number]], Cat dander, Dog dander, Dust/dust mites (calixto), [...] radiculopathy Recommendations: 1. Hypertension, stable - Continue INVESTIGATION MANAGER Nifedipine 2. GERD, stable - Famotidine 20 mg Q 12 hrs 3. DMT2, stable - Continue INVESTIGATION MANAGER Rosuvastatin 4. Anxiety, stable - Continue INVESTIGATION MANAGER hydroxyzine 5. Depression - Continue INVESTIGATION MANAGER duloxitine 5. Small fiber Neuropathy, stable - Continue INVESTIGATION MANAGER lyrica 6. Constipation - Miralax daily - Senna prn - Dulcolax prn 7. Insomnia - Continue INVESTIGATION MANAGER melatonin CODE STATUS: FULL DVT prophylaxis: SCDs [...] Aspirin Other GI Upset Aspirin Ad/Antacid [Asa-Calcium Yudc-Qcl-Knugydyd] Other Stomach Upset Cat Dander Hives Dog [...] Mobility Comments: Good logroll method, asks for CHEMISTRY SPECIALIST for last component of sup>sit. Reports her [...] if needed. No safety issues with this [facility] AM-PAC 6-Clicks Turning over in bed (including [...] Patient Seen In: Room Family/Caregiver Present: No Coffee Supervisor Used?: NA Hearing: Within Functional Limits Subjective [...] Frame Short term goals target date: 10/18/24 petroleum terminal plant operator goals target date: 10/25/24 Patient/Family Participation in [...] will complete toileting: independently Outcome: Goal Ongoing Skilled Nursing Goals Patient will complete ADLs including: hygiene/grooming, dressing, toileting, bathing, independently Outcome: Goal Ongoing * Gina gIlesias LSW - 10/12/2024 8:46 AM CDT Discharge Planning Initial Assessment Patients chart reviewed. Patient discussed in rounds. Patient Class: Inpatient Admitting Diagnoses: Cervical spondylosis without myelopathy [M47.812] Spinal stenosis in cervical region [M48.02] Cervical radiculopathy [M54.12] Admitted From: Home Living Arrangements: Spouse/significant other Support Systems: Spouse/significant other, Family members Kelton Li ([facility]) [phone] (M) Argenis Roy ([facility]) [phone] (M) Primary Decision Maker: Patient, no HCD [...] will continue to follow. CLAUDIO Ram 5NW Generating Station Mechanic 10/12/2024 8:51 AM * Robles Gibbons RN [...] on 2L NC R: Recommendation Patient to [facility] SBAR report given to SCOTTY Vogt receiving care Patient transported via cart with chart and belongings. documented in this encounter OR Notes * OR Surgeon - Horacio Mcdonald MD - 10/10/2024 11:53 AM CDT Preoperative diagnosis: Chronic upper extremity pain Postoperative diagnosis: Same Attending Surgeon: Zechariah Mcdonald Paint Mixer Machine Surgeon: Monique Valera Procedure performed: Cervical laminectomy [...] she was then placed in the [place] overhead line worker and placed prone on chest rolls making [...] then transferred back spine taken on the [place] overhead line worker extubated and transferred the PACU. There were no complications identified during the procedure there was approximate 20 cc blood loss during the procedure Dr. Mcdonald was present for the rogers portions procedure and immediately availablefor the entire case physician assistant professor surgical technology Moraima assisted during the procedure. Monique Valera provided assistance with preoperative positioning, prepping, and draping of the patient.The assistant professor surgical technology provided vital operative assistance with retraction using instruments best providing the necessary exposure and visualization for the case, manipulation of tissues to achieve hemostasis, suction for visualization and assisted in wound closure. The assistant professor surgical technology also helped place instrumentation under direct visualization [...] 136 - 145 mmol/L 10/11/2024 8:[address] [facility] Potassium 3.9 3.4 - 5.1 mmol/L 10/11/2024 8:[address] [facility] Chloride 110(H) 98 - 108 mmol/L 10/11/2024 8:[address] [facility] Carbon Dioxide 22 20 - 31 mmol/L 10/11/2024 8:[address] [facility] BUN (Urea Nitro) 7(L) 9 - 23 mg/dL 10/11/2024 8:[address] [facility] Creatinine 0.94 0.55 - 1.02 mg/dL 10/11/2024 8:[address] [facility] Est GFR (CKD-EPI) >60.00 >60.00 mL/min/1. 73m2 10/11/2024 8:[address] [facility] Comment:Calculation based on the Chronic Kidney Disease Epidemiology Collaboration (CKD-EPI 2020) equation refit without adjustment for race. Glucose 144(H) 74 - 106 mg/dL 10/11/2024 8:[address] [facility] Calcium, Serum 8.4(L) 8.7 - 10.4 mg/dL 10/11/2024 8:[address] [facility] Anion Gap 10.0 0.0 - 15.0 mmol/L 10/11/2024 8:35 AM T [facility] Blood 10/11/2024 7:03 AM CDT 10/11/2024 7:21 AM CDT us Swapnil Ruiz MD CHEMISTRY ORDERABLE Final Result Performing Organization Address City/[facility] Co de Phone Number [facility] [place], [place] [id number] * (ABNORMAL) CBC (HGB,HCT,WBC,RBC,Platelet) (10/11/2024 7:03 AM CDT) WBC 9.6 4.3 - 10.8 K/uL 10/11/2024 7:25 AM T [facility] RBC 3.97(L) 4.20 - 5.40 M/uL 10/11/2024 7:[address] [facility] Hemoglobin 12.5 12.0 - 16.0 gm/dL 10/11/2024 7:[address] [facility] Hematocrit 36.4 36.0 - 48.0 % 10/11/2024 7:[address] [facility] MCV 92 80 - 100 fL 10/11/2024 7:[address] [facility] MCH 32 27 - 33 pg 10/11/2024 7:[address] [facility] MCHC 34 33 - 36 gm/dL 10/11/2024 7:[address] [facility] RDW 13.3 11.5 - 14.5 % 10/11/2024 7:25 AM T [facility] Platelet Count 145(L) 150 - 400 K/UL 10/11/2024 7:[address] [facility] MPV 10.3 6.5 - 12 fL 10/11/2024 7:25 AM T [facility] Blood 10/11/2024 7:03 AM CDT 10/11/2024 7:21 AM CDT Swapnil Ruiz MD HEMATOLOGY ORDERABLE Final Resul t [facility] [id number] [place] [address] * (ABNORMAL) POCT Glucose Meter (10/10/2024 1:14 PM CDT) Only the most recent of2 resultswithin the time period is included. GLUCOSE WB METER 139(H) 60 - 100 mg/dL 10/10/2024 1:31 PM CDT [facility] Blood 10/10/2024 1:14 PM CDT 10/10/2024 1:31 PM CDT Horacio Mcdonald MD LAB POINT OF CARE TEST RESULTS Final Result Performing Organization Address [facility] [[email or web address]] de Phone Number [facility] [id number] [id number] * XR C-ARM SPINE (10/10/2024 12:45 PM [...] assistance. REPORT SIGNED BY DR. KENDELL KATZ Horacio Mcdonald MD XRAY ORDERABLE Final Result documented in this encounter Visit Diagnoses Diagnosis Cervical spondylosis without myelopathy Spinal stenosis in cervical region documented in this encounter Admitting Diagnoses Diagnosis Cervical radiculopathy Brachial neuritis or radiculitis nos documented in this encounter Administered Medications Inactive Administered Medications - up to 3 most recent administrations Medication Order MAR Action Action Date Dose Rate Site acetaminophen (TYLENOL) rectal suppository 650 mg 650 mg, Rectal, FOUR TIMES A DAY, First dose (after last modification) on [facility] 10/11/24 at 0600, Until Discontinued, Post-Op acetaminophen (TYLENOL) tablet 1,000 mg 1,000 mg, oral, FOUR TIMES A DAY, First dose (after last modification) on [facility] 10/11/24 at 0600, Until Discontinued, Post-Op Given 10/12/2024 12:24 PM CDT 1,000 mg Given 10/12/2024 7:51 AM CDT 1,000 mg Given 10/11/2024 9:42 PM CDT 1,000 mg bacitracin (BACIGUENT) packet INTRA-PROCEDURE NEEDED, Starting on Tue10/10/24 at 1057, Until Tue10/10/24 at 1310, Intra-Op, per procedure Given 10/10/2024 10:57 AM CDT 1 Application calcium carbonate (TUMS) chewable tablet 500 mg [...] 10/10/2024 7:46 PM CDT 60 mg HYDROmorphone (DILAUDID) tablet 4-8 mg 4-8 [...] Given 10/10/2024 7:45 PM CDT 50 mg lidocaine (XYLOCAINE) ointment topical, NEEDED, Starting on Radha 10/11/24 at 1317, Until Tue10/12/24 at 2253, Pain, do not place directly on incision lidocaine 1%- EPINEPHrine 1:100,000 (XYLOCAINE-EPINEPHRINE) injection INTRA-PROCEDURE NEEDED, Starting on Tue10/10/24 at 1152, Until Tue10/10/24 at 1310, Intra-Op Given 10/10/2024 11:52 AM CDT 20 mL Procedural melatonin tablet 3 mg 3 mg, oral, [...] Post-Op 0548 (See Alternative - Provider: Erin Rosario)1222 (See Alternative - Provider: Kenji Floyd RN)1729 (See Alternative - Provider: Kenji Floyd RN)2142 (See Alternative - Provider: Erin Rosario) 0751 (See Alternative - Provider: Ingrid Arriaga RN)1224 (See Alternative - Provider: Ingrid Arriaga RN) [...] Erin Rosario)1222 (Given - Provider: Kenji Floyd RN)1729 (Given - Provider: Kenji Floyd RN)214 (Given - Provider: Erin Rosario) 075 (Given - Provider: Ingrid Arriaga RN)122 (Given - Provider: Ingrid Arriaga RN) clindamycin in D5W 50 mL (CLEOCIN) IV piggyback 900 mg (COMPLETED) 900 mg, Intravenous, ONCE ON INDUCTION, 1 dose, Starting on Tue10/10/24 at 0900, Until Tue10/10/24 at 1109, Intra-Op, Administer over 30 Minutes 1109 (Given - Provider: Linda Leyva APRN, DEHYDRATION PLANT OPERATOR) DULoxetine (CYMBALTA) delayed release capsule 60 mg [...] - Provider: Ingrid Arriaga RN - Reason: MD deferred - Comment: MD notified of BP 116/58. told marine underwriter to hold medication.) polyethylene glycol (MIRALAX) packet 17 g 17 g, oral, DAILY, First dose on Tue10/10/24 at 1600, Until Discontinued 152 (Declined - Provider: Kenji Floyd RN - Comment: I had a large BM yesterday, per Pt.) 08 (Declined - Provider: Kenji Floyd RN) 752 (Given - Provider: Ingrid Arriaga RN) pregabalin [...] (New Bag - Provider: Linda Leyva APRN, CHANTAL)1118 (Rate Change - Provider: Linda Leyva APRN, CHANTAL)1126 (Rate Change - Provider: Linda Leyva APRN, CHANTAL)1136 (Rate Change - Provider: Linda Leyva APRN, CHANTAL)1254 (Rate Change - Provider: Linda Leyva APRN, CHANTAL)1305 (Stopped - Provider: iLnda Leyva APRN, CHANTAL) PRN Medication Order 10/10/2024 10/11/2024 10/12/2024 saline FLUSH syringe 10 mL (CANCELED) 10 mL, Intravenous, NEEDED, Starting on Tue10/10/24 at 0758, Until Tue10/10/24 at 1310, Pre-Op, Line Care 0847 (Given - Provider: Cleopatra Pereira RN) bacitracin (BACIGUENT) packet (CANCELED) INTRA-PROCEDURE NEEDED, Starting on Tue10/10/24 at 1057, Until Tue10/10/24 at 1310, Intra-Op, per procedure 1057 (Given - Provider: Horacio Mcdonald MD - Comment: applied to [place] pins x3) benzocaine-menthol (CEPACOL) lozenge 1 lozenge [...] Kenji Floyd RN)2309 (Given - Provider: Robles Gibbons, SCOTTY) 2219 (Given - Provider: Erin Rosario) 1053 [...] Robles Gibbons RN)2309 (Given - Provider: Robles Gibbons, SCOTTY) 0351 (Given - Provider: Erin Rosario - [...] opioid alone is not adequately controlling pain. 1944 (See Alternative - Provider: Robles Gibbons RN) 821 (See Alternative - Provider: Kenji Floyd RN) hydrOXYzine pamoate (Vistaril) capsule 25-50 mg(Linked Group 2) 25-50 mg, oral, EVERY 4 HOURS NEEDED, Starting on Tue10/10/24 at 1438, Until Tue10/12/24 at 2253, Post-Op, for pain with opioid if opioid alone is not adequately controlling pain. 1944 (Given - Provider: Robles Gibbons RN) 821 (Given - Provider: Kenji Floyd RN) lidocaine [...] vomiting 0927 (See Alternative - Provider: Kenji Floyd, SCOTTY)1999 (Given - Provider: Erin Rosario) ondansetron (Zofran) injection 4 mg (COMPLETED) 4 mg, Intravenous, ONCE NEEDED, 1 dose, Starting on Tue10/10/24 at 1252, Until Tue10/10/24 at 1322, Phase 1/2, nausea & vomiting, for nausea while in recovery area if not given within the past 6 hours. 1322 (Given - Provider: Ines Garcia, SCOTTY) ondansetron (Zofran) injection 4 mg(Linked Group 3) [...] on Tue10/11/24 at 0600, Until Discontinued, Post-Op Or acetaminophen (TYLENOL) rectal suppository 650 mgJump to med 650 mg, Rectal, FOUR TIMES A DAY, First dose (after last modification) on Tue10/11/24 at 0600, Until Discontinued, Post-Op Group 2: [...] vomiting documented in this encounter Care Teams Pilot Manager Relationship Specialty Start Date End Date Terrance Glaser MD [address] [place] [address] PCP - Neurologist Neurology 01/07/21 Octaviano Tineo MD [address] [place] [address] PCP - General Family Medicine 10/02/24 documented as of this encounter
--- OUTSIDE RECORDS SUMMARY | 2024-10-17 11:01 | XMS_ITS | Encounter Summary ---
Author Organization [facility] Address [address] [place] [id number] Care Team Providers Care Newspaper Inserter Name Role Phone Terrance Glaser MD Unavailable [phone] Octaviano Tineo MD Primary Care Provider [phone] Reason for Referral * (Routine) - Open Specialty Diagnoses / Procedures Referred By Contac t Referred To Contact Procedures Diet: Level 7 Regular Nolvia Valera PA-C [address] [place] [address] [place] [address] Phone: tel: fax: Referral ID Status Reason Start Date Expiration Date Visits Re quested Visits Authorized [id number] Open 10/17/2024 1 1 * (Routine) - Open Specialty Diagnoses / Procedures Referred By Contac t Referred To Contact Procedures DIET and BOWEL PROGRAM: Nolvia Valera PA-C [address] [place] [address] [place] [address] Phone: tel: fax: Referral ID Status Reason Start Date Expiration Date Visits Re quested Visits Authorized [id number] Open 10/17/2024 1 1 * (Routine) - Open Specialty Diagnoses / Procedures Referred By Contac t Referred To Contact Procedures Education Nolvia Valera PA-C [address] [address] Phone: tel: fax: Referral ID Status Reason Start Date Expiration Date Visits Re quested Visits Authorized [id number] Open 10/17/2024 1 1 * (Routine) - Open Specialty Diagnoses / Procedures Referred By Contac t Referred To Contact Procedures Exercise instructions Nolvia Valera PA-C [address] [address] Phone: tel: fax: Referral ID Status Reason Start Date Expiration Date Visits Re quested Visits Authorized [id number] Open 10/17/2024 1 1 * Consultation (Routine) - Open Specialty Diagnoses / Procedures Referred By Contac t Referred To Contact Neurosurgery Diagnoses Cervical radiculopathy S/P insertion of spinal cord stimulator Nolvia Valera PA-C [address] [address] Phone: tel: fax: Referral ID Status Reason Start Date Expiration Date V isits Requested Visits Authorized [id number] Open Specialty Services Required 10/17/2024 1 1 Comments If you need a refill on your prescriptions, or you have questions or concerns, please call [phone] during office hours, Tuesday-Tuesday 8:30 a.m. to 4:30 p.m. Please plan ahead if you are running low and expect to require a refill. * Consultation (Routine) - Open Specialty Diagnoses / Procedures Referred By Contac t Referred To Contact Neurosurgery Diagnoses Cervical radiculopathy S/P insertion of spinal cord stimulator Nolvia Valera PA-C [address] [address] Phone: tel: fax: Referral ID Status Reason Start Date Expiration Date V isits Requested Visits Authorized [id number] Open Specialty Services Required 10/17/2024 1 1 Question Answer Specify time frame for follow up? 2 Weeks Follow Up Instructions routine f/u 2-4 weeks. Comments Please call [phone] option 1 for an appointment if no appointment scheduled within 1 week of discharge * (Routine) - Open Specialty Diagnoses / Procedures Referred By Contac t Referred To Contact Procedures Temperature >101 (38.3 degrees Celsius) Nolvia Valera PA-C [address] [address] Phone: tel: fax: Referral ID Status Reason Start Date Expiration Date Visits Re quested Visits Authorized [id number] Open 10/17/2024 1 1 * (Routine) - Open Specialty Diagnoses / Procedures Referred By Contac t Referred To Contact Procedures Severe uncontrolled pain Nolvia Valera PA-C [address] [address] Phone: tel: fax: Referral ID Status Reason Start Date Expiration Date Visits Re quested Visits Authorized [id number] Open 10/17/2024 1 1 * (Routine) - Open Specialty Diagnoses / Procedures Referred By Contac t Referred To Contact Procedures Increased tenderness or swelling Nolvia Valera PA-C [address] [address] Phone: tel: fax: Referral ID Status Reason Start Date Expiration Date Visits Re quested Visits Authorized [id number] Open 10/17/2024 1 1 * (Routine) - Open Specialty Diagnoses / Procedures Referred By Contac t Referred To Contact Procedures Persistent nausea or vomiting Nolvia Valera PA-C [address] [address] Phone: tel: fax: Referral ID Status Reason Start Date Expiration Date Visits Re quested Visits Authorized [id number] Open 10/17/2024 1 1 * (Routine) - Open Specialty Diagnoses / Procedures Referred By Contac t Referred To Contact Procedures Numbness/pain in extremity Nolvia Valera PA-C [address] [address] Phone: tel: fax: Referral ID Status Reason Start Date Expiration Date Visits Re quested Visits Authorized [id number] Open 10/17/2024 1 1 * (Routine) - Open Specialty Diagnoses / Procedures Referred By Contac t Referred To Contact Procedures Difficulty breating, headache, or visual disturbance Nolvia Valera PA-C [address] [address] Phone: tel: fax: Referral ID Status Reason Start Date Expiration Date Visits Re quested Visits Authorized [id number] Open 10/17/2024 1 1 * (Routine) - Open Specialty Diagnoses / Procedures Referred By Contac t Referred To Contact Procedures Chills Nolvia Valera PA-C [address] [address] Phone: tel: fax: Referral ID Status Reason Start Date Expiration Date Visits Re quested Visits Authorized [id number] Open 10/17/2024 1 1 * (Routine) - Open Specialty Diagnoses / Procedures Referred By Lino conway Referred To Contact Procedures Any questions or concerns Nolvia Valera PA-C [address] [address] Phone: tel: fax: Referral ID Status Reason Start Date Expiration Date Visits Re quested Visits Authorized [id number] Open 10/17/2024 1 1 Reason for Visit * Inpatient Admission (Routine) Specialty Diagnoses / Procedures Referred By Lino t Referred To Contact Diagnoses Cervical spondylosis without myelopathy Spinal stenosis in cervical region Cervical spondylosis without myelopathy [M47.812] Spinal stenosis in cervical region [M48.02] Procedures INSJ/RPLCMT SPINAL NPG/RCVR POCKET CRTJ&CONNJ RMVL SPINAL NSTIM ELTRD PLATE/PADDLE INCL FLUOR SPINAL CORD STIMULATOR IMPLANT VS REMOVAL Referral ID Status Reason Start Date Expiration Date Visits Re quested Visits Authorized [id number] 1 1 Encounter Details Date Type Department Care Team (Latest Contact Info) Description 10/17/2024 11:01 AM CDT - 10/17/2024 4:32 PM CDT Hospital Encounter [facility] [address] [place] [address] [place] [address] Horacio Mcdonald MD [address] [address] Cervical spondylosis without myelopathy Discharge Disposition: Returning Home/Self Care Social History Tobacco Use Types Packs/Day Years Used Date Smoking Tobacco: Former Cigarettes Q uit: 1996 Smokeless Tobacco: Never Alcohol Use Standard Drinks/Week Comments Never 0 (1 standard drink = 0.6 oz pur e alcohol) [facility] Utilities Answer Date Recorded In the past 12 months has th e electric, gas, oil, or water [facility] threatened to shut off services in your [...] money to buy more. Never true 10/11/19 Within the past 12 months, t he [...] any time in the past 12 m [facility], were you homeless or living in a longterm (including now)? No 10/10/2024 Comments No Sex [...] Sign Reading Time Taken Comments Blood Pressure 127/78 10/17/2024 4:15 PM CDT Pulse 96 10/17/2024 4:15 PM CDT Temperature 36.7 C (98 F) 10/17/2024 3:39 PM CDT Respiratory Rate 16 10/17/2024 4:15 PM CDT Oxygen Saturation 96% 10/17/2024 4:15 PM CDT Inhaled Oxygen Concentration - - Weight 96.4 kg (212 lb 9.6 oz) 10/17/2024 11:24 AM CDT Height 165.1 cm (5' 5) 10/15/2024 11:11 AM CDT Body Mass Index 35.38 10/15/2024 11:11 AM CDT documented in this encounter Medications [...] EVERY AT BEDTIME 450 tablet 3 05/23/2023 pregabalin (LYRICA) 50 mg oral capsule TAKE 1 CAPSULE BY MOUTH BETWEEN 5-6 PM AND TAKE 1 CAPSULE BY MOUTH BETWEEN 9-10 PM 180 capsule 3 11/16/2023 11/08/2024 documented as of this encounter Nursing Notes * Tereza Burgess RN - 10/17/2024 4:28 PM CDT Rosario Li 1970 [id number] P: Discharge A: Discharged via wheelchair to home at 1628 escorted by volunteer I: Discharge information and arrangements included: review of written discharge instructions, prescriptions sent with patient, belongings list completed. Contact the pt @ home for post procedure call. Ok to leave message? Yes R:Patient, spouse expressed understanding of information. * Rachael Granados RN - 10/17/2024 3:35 PM CDT PACU POSTOP END OF SHIFT SBAR S: Situation/ B: Background Patient s/p SPINAL CORD STIMULATOR IMPLANT under general anesthesia. To PACU at 1454 from OR. Placed on full monitors. PMH: DM, sleep apnea, spinal stenosis in cervical region A: Assessment Incision: cervical area of neck, low back. Covered with dressing Dressing: CDI Pain: to L shoulder from surgery she has last week Nausea: denies BP 128/65 Pulse (!) 104 Temp 97.7 ??F (36.5 ??C) Resp 19 Ht 5' 5 (1.651 m) Wt 96.4 kg (212 lb 9.6 oz) SpO2 95% BMI 35.38 kg/m?? Saturation level 96% on RA R: Recommendation Patient to [place] [address] SBAR report given to SCOTTY Boyd receiving care * Breonna Rojo RN - 10/15/2024 11:32 AM CDT Pt states that she had been running a fever off/on since her procedure last week. Pt states her happened to be picking up his prescriptions and was told that there is an antibiotic for pt waiting to be picked up as well. Pt stated she was never told she had a prescription. Pt was instructedto call Dr. Akers office regarding the above to make sure she is still able to proceed as planned. documented in this encounter OR Notes * OR Surgeon - Horacio Mcdonald MD - 10/17/2024 2:32 PM CDT Preoperative diagnosis: Successful trial of spinal cord stimulator Postoperative diagnosis: Same Attending Surgeon: Zechariah Mcdonald Head Filter Press Tender Surgeon: Monique Valera Procedure performed: Placement of permanent subcutaneous pulse generator for spinal cord stimulator History of present illness: The patient is a 54-year-old female that has now undergone a successfultrial of spinal cord stimulation given that the trial successful she presents now for elective placement of this permanent subcutaneous pulse generator for the spinal cord stimulator system Technique: After informed consent assessment anesthesia the patient was taken the operating placed under general trach anesthesia she was then placed prone on the OR table making sure that her face breast extremities were all equally padded protected her back was then prepped and draped the usual sterile manner and the previously made incision in the flank at the site of the electrode leads and extensions was opened with a 10 blade scalpel blunt dissection was then used to dissect down into thesubcutaneous pocket and then the electrode extensions and leads were removed from the subcutaneous pocket the extensions were disconnected cut and removed the electrode leads were then inserted into t he pulse generator the screws were tightened the factory specified torque there appeared to be no significant abnormal impedance the subcutaneous space was then irrigated out all bleeding points werecoagulated and the generator with connected leads was then placed in the subcutaneous pocket the incision was then closed in layers with a sterile dressing for the skin the patient was transferred back spine extubated transfer the PACU. There were no complications identified during the procedure there was approximately a 5 cc blood loss during the procedure Dr. Sanchez was present for the rogers portion of the procedure and immediatelyavailable for the entire case physician assistant Valera assisted during the procedure. Monique Valera provided assistance with preoperative positioning, prepping, and draping of the patient.The zoning assistant provided vital operative assistance with retraction using instruments best providing the necessary exposure and visualization for the case, manipulation of tissues to achieve hemostasis, suction for visualization and assisted in wound closure. The zoning assistant also helped place instrumentation under direct visualization of the surgeon. Postoperatively they assisted in the transfer of the patient off the operative table and transition into the post anesthesia care unit with transitionof care being made to the anesthesiologist. documented in this encounter Plan of Treatment Scheduled Referrals Name Type Priority Associated Diagnoses Orde r Schedule Follow Up with Neurosurgery Referral Routine Cervical radiculopathy S/P insertion of spinal cord stimulator Ordered: 10/17/2024 Follow Up with Neurosurgery Referral Routine Cervical radiculopathy S/P insertion of spinal cord stimulator Ordered: 10/17/2024 documented as of this encounter Goals Goal Patient Goal Type Associated Problems Recent Progress Patient-Stated? Author Autogenerat ed Goal Care Plan Autogenerated Problem No Ginna Ndiaye documented as of this encounter Procedures Procedure Name Priority Date/Time Associated Diagnosis Comments POCT GLU METER Routine 10/17/2024 3:01 PM CDT RMVL SPINAL NSTIM ELTRD PLATE/PADDLE INCL FLUOR 10/17/2024 1:45 PM CDT Cervical spondylosis without myelopathy Spinal stenosis in cervical region POCT GLU METER STAT 10/17/2024 11:19 AM CDT documented in this encounter Results * (ABNORMAL) POCT Glucose Meter (10/17/2024 3:01 PM CDT) Only the most recent of2 resultswithin the time period is included. GLUCOSE WB METER 141(H) 60 - 100 mg/dL 10/17/2024 3:18 PM CDT [facility] Blood 10/17/2024 3:01 PM CDT 10/17/2024 3:18 PM CDT us Horacio Mcdonald MD LAB POINT OF CARE TEST RESULTS Final Result [facility] [address] [place] [id number] documented in this encounter Visit Diagnoses Diagnosis S/P insertion of spinal cord stimulator- Primary Cervical radiculopathy Brachial neuritis or radiculitis nos documented in this encounter Administered Medications Inactive Administered Medications - up to 3 most recent administrations Medication Order MAR Action Action Date Dose Rate Site acetaminophen (TYLENOL) tablet 1,000 mg 1,000 mg, oral, ONCE, 1 dose, On Tue10/17/24 at 1115, Pre-Op Given 10/17/2024 12:09 PM CDT 1,000 mg atropine syringe 0.5 mg 0.5 mg, Intravenous, NEEDED, Starting on Tue10/17/24 at 1444, Until Tue10/17/24 at 2043, Phase 1/2, bradycardia, for sudden bradycardia; for heart rate less than 50 bpm WITH HYPOTENSION - NOTIFY ANESTHESIOLOGIST hydrOXYzine HCl (VISTARIL) injection 25 mg 25 mg, IntraMUSCULAR, ONCE NEEDED, MAY REPEAT X 1, 2 doses, Starting on Tue10/17/24 at 1444, Until Tue10/17/24 at 1555, Phase 1/2, for augmentation of narcotic based analgesia while in recovery area and unable to take PO. Not to be given within the past 6 hours. Given 10/17/2024 3:21 PM CDT 25 mg Right Deltoid hydrOXYzine pamoate (Vistaril) capsule 25 mg 25 mg, oral, ONCE NEEDED, MAY REPEAT X 1, 2 doses, Starting on Tue10/17/24 at 1444, Until Tue10/17/24 at 1555, Phase 1/2, for augmentation of narcotic based analgesia while in recovery area. Not to be used if given within the past 6 hours. Given 10/17/2024 3:55 PM CDT 25 mg lactated Ringers (LR) IV infusion at 100 mL/hr, Intravenous, CONTINUOUS, Starting on Tue10/17/24 at 1445, Until Tue10/17/24 at 1537, Phase 1 Rate Verify 10/17/2024 3:15 PM CDT 100 mL/hr midazolam (VERSED) injection 0.5-1 mg 0.5-1 mg, Intravenous, EVERY 10 MINUTES NEEDED, 2 doses, Starting on Tue10/17/24 at 1444, Until Tue10/17/24 at 2237, Phase 1/2, for restlessness ondansetron (Zofran) injection 4 mg 4 mg, Intravenous, ONCE NEEDED, 1 dose, Starting on Tue10/17/24 at 1444, Until Tue10/17/24 at 2237, Phase 1/2, nausea & vomiting, for nausea while in recovery area if not given within the past 6 hours. oxyCODONE (immediate release) (ROXICODONE) tablet 5 mg 5 mg, oral, NOW, 1 dose, On Tue10/17/24 at 1600 Given 10/17/2024 3:55 PM CDT 5 mg documented in this encounter Active and Recently Administered Medications Times are shown in CDT. Scheduled Medication Order 10/15/2024 10/16/2024 10/17/2024 acetaminophen (TYLENOL) tablet 1,000 mg (COMPLETED) 1,000 mg, oral, ONCE, 1 dose, On Tue10/17/24 at 1115, Pre-Op 1209 (Given - Provid er: Migdalia Chan RN) acetaminophen (TYLENOL) tablet 500-1,000 mg 500-1,000 mg, oral, ONCE, 1 dose, On Tue10/17/24 at 1445, Phase 1/2 1514 (Canceled Entry - Provider: Rachael Granados RN - Comment: given pre op) oxyCODONE (immediate release) (ROXICODONE) tablet 5 mg (COMPLETED) 5 mg, oral, NOW, 1 dose, On Tue10/17/24 at 1600 1555 (Given - Provid er: Tereza Burgess RN) Continuous Medication Order 10/15/2024 10/16/2024 10/17/2024 lactated Ringers (LR) IV infusion (CANCELED) at 100 mL/hr, Intravenous, CONTINUOUS, Starting on Tue10/17/24 at 1445, Until Tue10/17/24 at 1537, Phase 1 1515 (Rate Verify - Provider: Rachael Granados RN) PRN Medication Order 10/15/2024 10/16/2024 10/17/2024 atropine syringe 0.5 mg 0.5 mg, Intravenous, NEEDED, Starting on Tue10/17/24 at 1444, Until Tue10/17/24 at 2043, Phase 12, bradycardia, for sudden bradycardia; for heart rate less than 50 bpm WITH HYPOTENSION - NOTIFY ANESTHESIOLOGIST hydrOXYzine HCl (VISTARIL) injection 25 mg (COMPLETED)(Linked Group 1) 25 mg, IntraMUSCULAR, ONCE NEEDED, MAY REPEAT X 1, 2 doses, Starting on Tue10/17/24 at 1444, Until Tue10/17/24 at 1555, Phase 1/2, for augmentation of narcotic based analgesia while in recovery area and unable to take PO. Not to be given within the past 6 hours. 1521 (Given - Provid er: Rachael Granados RN)1555 (See Alternative - Provider: Tereza Burgess RN) hydrOXYzine pamoate (Vistaril) capsule 25 mg (COMPLETED)(Linked Group 1) 25 mg, oral, ONCE NEEDED, MAY REPEAT X 1, 2 doses, Starting on Tue10/17/24 at 1444, Until Tue10/17/24 at 1555, Phase 1/2, for augmentation of narcotic based analgesia while in recovery area. Not to be used if given within the past 6 hours. 1521 (See Alternativ e - Provider: Rachael Granados RN)1555 (Given - Provider: Tereza Burgess RN) lidocaine 1%- EPINEPHrine 1:100,000 (XYLOCAINE-EPINEPHRINE) injection (CANCELED) INTRA-PROCEDURE NEEDED, Starting on Tue10/17/24 at 1439, Until Tue10/17/24 at 1453, Intra-Op 1439 (Given - Provid er: Horacio Mcdonald MD) midazolam (VERSED) injection 0.5-1 mg 0.5-1 mg, Intravenous, EVERY 10 MINUTES NEEDED, 2 doses, Starting on Tue10/17/24 at 1444, Until Tue10/17/24 at 2237, Phase 1/2, for restlessness ondansetron (Zofran) injection 4 mg 4 mg, Intravenous, ONCE NEEDED, 1 dose, Starting on Tue10/17/24 at 1444, Until Tue10/17/24 at 2237, Phase 1/2, nausea & vomiting, for nausea while in recovery area if not given within the past 6 hours. Linked Groups Order Group 1: hydrOXYzine pamoate (Vistaril) capsule 25 mg (COMPLETED)Jump to med 25 mg, oral, ONCE NEEDED, MAY REPEAT X 1, 2 doses, Starting on Tue10/17/24 at 1444, Until Tue10/17/24 at 1555, Phase 1/2, for augmentation of narcotic based analgesia while in recovery area. Not to be used if given within the past 6 hours. Or hydrOXYzine HCl (VISTARIL) injection 25 mg (COMPLETED)Jump to med 25 mg, IntraMUSCULAR, ONCE NEEDED, MAY REPEAT X 1, 2 doses, Starting on Tue10/17/24 at 1444, Until Tue10/17/24 at 1555, Phase 1/2, for augmentation of narcotic based analgesia while in recovery area and unable to take PO. Not to be given within the past 6 hours. documented in this encounter Additional Health Concerns Active Problems Noted Date Diagnosed Date Autogenerated Problem 09/26/2024 documented as of this encounter Care Teams Newspaper Inserter Relationship Specialty Start Date End Date Terrance Glaser MD [address] [facility] [address] [place] [address] PCP - Neurologist Neurology 01/07/21 Octaviano Tineo MD [address] [place] [address] PCP - General Family Medicine 10/02/24 documented as of this encounter
--- OUTSIDE RECORDS SUMMARY | 2024-10-17 12:40 | XMS_ITS | Encounter Summary ---
Author Organization [facility] Address [address] [place] [address] Care Team Providers Care Manager Product Name Role Phone Terrance Glaser MD Unavailable [phone] Octaviano Tineo MD Primary Care Provider [phone] Reason for Visit * Inpatient Admission (Routine) [...] Expiration Date Visits Re quested Visits Authorized [id number] 1 1 Encounter Details Date Type Department Care Team (Late st Contact Info) Description 10/17/2024 12:40 PM CDT - 10/17/2024 2:10 PM CDT Surgery [facility] Operating Room [address] [place] [address] Horacio Mcdonald MD [address] [place] [address] SPINAL CORD STIMULATOR IMPLANT Surgery Details Date/Time Status Location OR Service Patient Class Case Class Case Type Trauma Case? 10/17/2024 12:40 PM Posted [facility] ORS 10 Neurosurgery Same Day Surgery Panel 1 Procedure LRB Anes Op Region Wound Class Comments SPINAL CORD STIMULATOR IMPLANT N/A General Spine, Yari mbar Clean (I) Surgeon Surgeon Role Service Panel Horacio Mcdonald MD Primary Neurosurgery 1 documented in this encounter Social History Tobacco Use Types Packs/Day Years Used Date Smoking Tobacco: Former Cigarettes Q uit: 1996 Smokeless Tobacco: Never Alcohol Use Standard Drinks/Week Comments Never 0 (1 standard drink = 0.6 oz pur e alcohol) [facility] Utilities Answer Date Recorded In the past 12 months has th e [employer], gas, oil, or water [employer] threatened to shut off services in your [...] any time in the past 12 m [facility], were you homeless or living in a nursing home (including now)? No 10/10/2024 Comments No Sex [...] Sign Reading Time Taken Comments Blood Pressure 139/100 10/17/2024 11:24 AM CDT Pulse 79 10/17/2024 11:24 AM CDT Temperature 36.5 C (97.7 F) 10/17/2024 11:24 AM CDT Respiratory Rate 20 10/17/2024 11:24 AM CDT Oxygen Saturation 100% 10/17/2024 11:24 AM CDT Inhaled Oxygen Concentration - - [...] of this encounter Nursing Notes * Tereza Burgess, SCOTTY - 10/17/2024 4:28 PM CDT Rosario Maia Li [id number] P: Discharge A: Discharged via wheelchair to [...] 96% on RA R: Recommendation Patient to [place] [address] SBAR report given to SCOTTY Boyd receiving [...] Postoperative diagnosis: Same Attending Surgeon: Zechariah Mcdonald Candy Spreader Surgeon: Monique Valera Procedure performed: Placement of [...] prepping, and draping of the patient.The assistant corporate secretary provided vital operative assistance with retraction using instruments best providing the necessary exposure and visualization for the case, manipulation of tissues to achieve hemostasis, suction for visualization and assisted in wound closure. The assistant corporate secretary also helped place instrumentation under direct visualization [...] ed Goal Care Plan Autogenerated Problem No Ndiaye, Ginna R documented as of this encounter Procedures Procedure [...] - 100 mg/dL 10/17/2024 3:18 PM CDT [facility] Blood 10/17/2024 3:01 PM CDT 10/17/2024 3:18 PM CDT us Horacio Mcdonald MD LAB POINT OF CARE TEST RESULTS Final Result [facility] [address] [id number] documented in this encounter Visit Diagnoses Diagnosis S/P insertion of spinal cord stimulator- Primary Cervical radiculopathy Brachial neuritis or radiculitis nos Cervical spondylosis without myelopathy Spinal stenosis in cervical region documented in this encounter Administered Medications Inactive [...] Verify 10/17/2024 3:15 PM CDT 100 mL/hr lidocaine 1%- EPINEPHrine 1:100,000 (XYLOCAINE-EPINEPHRINE) injection INTRA-PROCEDURE NEEDED, Starting on Tue10/17/24 at 1439, Until Tue10/17/24 at 1453, Intra-Op Given 10/17/2024 2:39 PM CDT 34 mL Procedural midazolam (VERSED) injection 0.5-1 mg 0.5-1 mg, Intravenous, EVERY 10 MINUTES NEEDED, 2 doses, Starting on Tue10/17/24 at 1444, Until Tue10/17/24 at 2237, Phase 1/2, for restlessness ondansetron (Zofran) injection 4 mg 4 mg, Intravenous, ONCE NEEDED, 1 dose, Starting on Tue10/17/24 at 1444, Until Tue10/17/24 at 2237, Phase 12, nausea & vomiting, for nausea while in [...] Rachael Granados RN)1555 (Given - Provider: Tereza Burgess, SCOTTY) lidocaine 1%- EPINEPHrine 1:100,000 (XYLOCAINE-EPINEPHRINE) injection (CANCELED) [...] documented as of this encounter Care Teams Manager Product Relationship Specialty Start Date End Date Terrance Glaser MD [address] [place] [address] [address] [place] [address] PCP - Neurologist Neurology 01/07/21 Octaviano Tineo MD [address] [place] [address] PCP - General Family Medicine 10/02/24 documented as of this encounter
--- OUTSIDE RECORDS SUMMARY | 2024-11-09 21:02 | XMS_ITS | Encounter Summary ---
Author Organization [facility] Address [address] [place] [address] Care Team Providers Care Venetian Blind Tape Cutter Name Role Phone Terrance Glaser MD Unavailable [phone] Octaviano Tineo MD Primary Care Provider [phone] Reason for Visit * Reason Comments Shoulder pain Encounter Details Date Type Department Care Team (Late st Contact Info) Description 11/09/2024 9:02 PM CDT - 11/10/2024 12:22 AM CDT Emergency [facility] Emergency Department [address] [place], [place] [address] Discharge Disposition: Returning Home/Self Care Social History Tobacco Use Types Packs/Day Years Used Date Smoking Tobacco: Former Cigarettes Q uit: 1996 Smokeless Tobacco: Never Alcohol Use Standard Drinks/Week Comments Never 0 (1 standard drink = 0.6 oz pur e alcohol) [facility] Utilities Answer Date Recorded In the past 12 months has [employer], gas, oil, or water [employer] threatened to shut off services in your [...] any time in the past 12 m [facility], were you homeless or living in a jail (including now)? No 10/10/2024 Comments No Sex [...] Sign Reading Time Taken Comments Blood Pressure 157/97 11/09/2024 9:40 PM CDT Pulse 117 11/09/2024 9:40 PM CDT Temperature 36.8 C (98.2 F) 11/09/2024 9:40 PM CDT Respiratory Rate 26 11/09/2024 9:40 PM CDT Oxygen Saturation 99% 11/09/2024 9:40 PM CDT Inhaled Oxygen Concentration - - Weight - - Height 165.1 cm (5' 5) 11/09/2024 9:40 PM CDT Body Mass Index - - documented in this encounter Medications at Time of Discharge ascorbic acid, vitamin C, 250 mg oral tablet Take 4 tablets (1,000 mg) by mouth once daily. B-Complex with Vitamin C oral Tab Take 1 tablet by mouth once daily. calcium carbonate/vitamin D3 [...] tablet (15 mg) by mouth Daily. 09/13/2024 methylPREDNISolone (MEDROL DOSPAK) 4 mg oral dospakIndications:S /P insertion of spinal cord stimulator,Cervical radiculopathy Take 1 tablet (4 mg) by mouth As instructed per provider. 21 tablet 10/31/2024 multivitamin (CERTAVITE) 18-400 mg-mcg oral tablet Take [...] needed. pregabalin (LYRICA) 50 mg oral capsule TAKE 1 CAPSULE BY MOUTH BETWEEN 5 AND 6 PM AND 1 CAPSULE BETWEEN 9-10 PM 180 capsule 3 11/08/2024 prochlorperazine (COMPAZINE) 10 mg oral tablet Take [...] EVERY AT BEDTIME 450 tablet 3 05/23/2023 documented as of this encounter ED Notes * Malena Gunn RN - 11/10/2024 12:21 AM CDT Pt is going to go home d/t long wait and will return tomorrow. Taken home by * Sofia Espinal RN - 11/09/2024 9:41 PM CDT Pt arrives ambulatory to triage for eval of shoulder pain left sided. Pt had neck surgery on 10/10 to put in a pain stimulatory and since then her left shoulder has had extreme pain w/ spasms. The pain has gotten progressively worse took prednisone pack and is done and has been taking flexeril and dilaudid per their surgeon twice now but the pain is getting worse and worse. documented in this encounter Plan of Treatment Not on file documented as of this encounter Goals Goal Patient Goal Type Associated Problems Recent Progress Patient-Stated? Author Autogenerat ed Goal Care Plan Autogenerated Problem No Ndiaye, Ginna R documented as of this encounter Procedures Procedure Name Priority Date/Time Associated Diagnosis Comments XR SHOULDER 2 OR 3 VIEWS LT STAT 11/09/2024 9:54 PM CDT documented in this encounter Results * XR SHOULDER 2 OR 3 VIEWS LT (11/09/2024 9:54 PM CDT) Anatomical Region Laterality Modality Extremity Computed Radiogr aphy 11/09/2024 10:0 5 PM CDT Impressions 11/09/2024 10:05 PM CDT IMPRESSION: 1. No acute findings. REPORT SIGNED BY DR. Jesus Carroll Narrative 11/09/2024 10:05 PM CDT EXAM: XR SHOULDER 2 OR 3 VIEWS LT DATE: 11/09/2024 21:54 CLINICAL DATA: ADDITIONAL CLINICAL DATA: Pain COMPARISON: None. NUMBER OF VIEWS: 3 FINDINGS: No acute fractures or dislocations. Postoperative changes from prior distal clavicle resection. Procedure Note Jesus Carroll MD - 11/09/2024 EXAM: XR SHOULDER 2 OR 3 VIEWS LT DATE: 11/09/2024 21:54 CLINICAL DATA: ADDITIONAL CLINICAL DATA: Pain COMPARISON: None. NUMBER OF VIEWS: 3 FINDINGS: No acute fractures or dislocations. Postoperative changes from priordistal clavicle resection. IMPRESSION IMPRESSION: 1. No acute findings. REPORT SIGNED BY DR. Jesus Carroll us Walter Wilson MD XRAY ORDERABLE Final Result documented in this encounter Visit Diagnoses Not on filedocumented in this encounter Additional Health Concerns Active Problems Noted Date Diagnosed Date Autogenerated Problem 09/26/2024 documented as of this encounter Care Teams Venetian Blind Tape Cutter Relationship Specialty Start Date End Date Terrance Glaser MD [address] [facility] [address] [place] [address] PCP - Neurologist Neurology 01/07/21 Octaviano Tineo MD [address] [place] [address] PCP - General Family Medicine 10/02/24 documented as of this encounter
--- OUTSIDE RECORDS SUMMARY | 2024-11-11 15:55 | XMS_ITS | Encounter Summary ---
Author Organization [facility] Address [address] [place] [address] Care Team Providers Care Meteorology Professor Name Role Phone Terrance Glaser MD Unavailable [phone] Octaviano Tineo MD Primary Care Provider [phone] Encounter Details Date Type Department Care Team (Latest Contact Info) Description 11/09/2024 Travel Social History Tobacco Use Types Packs/Day Years Used Date Smoking Tobacco: Former Cigarettes Q uit: 1996 Smokeless Tobacco: Never Alcohol Use Standard Drinks/Week Comments Never 0 (1 standard drink = 0.6 oz pur e alcohol) [facility] Utilities Answer Date Recorded In the past 12 months has e [email or web address], gas, oil, or water [employer] threatened to shut off services in your [...] any time in the past 12 m onths, were you homeless or living in a [...] on file documented as of this encounter Plan of Treatment Not on file documented as of this encounter Goals Goal Patient Goal Type Associated Problems Recent Progress Patient-Stated? Author Autogenerat ed Goal Care Plan Autogenerated Problem No Ndiaye, Ginna R documented as of this encounter Visit Diagnoses Not on filedocumented in this encounter Additional Health Concerns Active Problems Noted Date Diagnosed Date Autogenerated Problem 09/26/2024 documented as of this encounter Care Teams Meteorology Professor Relationship Specialty Start Date End Date Terrance Glaser MD [address] [facility] [address] [place] [address] PCP - Neurologist Neurology 01/07/21 Octaviano Tineo MD [address] [place] [address] PCP - General Family Medicine 10/02/24 documented as of this encounter
--- OUTSIDE RECORDS SUMMARY | 2024-11-11 15:55 | XMS_ITS | Encounter Summary ---
Author Organization [facility] Address [address] [place] [address] Care Team Providers Care Occupational Ther Name Role Phone Terrance Glaser MD Unavailable [phone] Octaviano Tineo MD Primary Care Provider [phone] Encounter Details Date Type Department Care Team (Latest Contact Info) Description 10/05/2024 Travel Social History Tobacco Use Types Packs/Day Years Used Date Smoking Tobacco: Former Cigarettes Q uit: 1996 Smokeless Tobacco: Never Alcohol Use Standard Drinks/Week Comments Never 0 (1 standard drink = 0.6 oz pur e alcohol) Comments No Sex and Gender Information Value [...] documented as of this encounter Care Teams Occupational Ther Relationship Specialty Start Date End Date Terrance Glaser MD [address] [place] [address] [place] [address] PCP - Neurologist Neurology 01/07/21 Octaviano Tineo MD [address] [place] [address] PCP - General Family Medicine 10/02/24 documented as of this encounter
--- OUTSIDE RECORDS SUMMARY | 2024-11-11 15:55 | XMS_ITS | Encounter Summary ---
Author Organization [facility] Address [address] [place] [address] Care Team Providers Care Horse Breaker Name Role Phone Terrance Glaser MD Unavailable [phone] Octaviano Tineo MD Primary Care Provider [phone] Encounter Details Date Type Department Care Team (Latest Contact Info) Description 10/15/2024 Travel Social History Tobacco Use Types Packs/Day Years Used Date Smoking Tobacco: Former Cigarettes Q uit: 1996 Smokeless Tobacco: Never Alcohol Use Standard Drinks/Week Comments Never 0 (1 standard drink = 0.6 oz pur e alcohol) [facility] Utilities Answer Date Recorded In the past 12 months has e [employer], gas, oil, or water [employer] threatened to shut off services in your [...] were you homeless or living in a halfway (including now)? No 10/10/2024 Comments No Sex [...] documented as of this encounter Care Teams Horse Breaker Relationship Specialty Start Date End Date Terrance Glaser MD [address] [facility] [address] [place] [address] PCP - Neurologist Neurology 01/07/21 Octaviano Tineo MD [address] [place] [address] PCP - General Family Medicine 10/02/24 documented as of this encounter
--- OUTSIDE RECORDS SUMMARY | 2024-11-11 15:55 | XMS_ITS | Encounter Summary ---
Author Organization [facility] Address [address] [place] [address] Care Team Providers Care Presentation Manager Name Role Phone Terrance Glaser MD Unavailable [phone] Octaviano Tineo MD Primary Care Provider [phone] Encounter Details Date Type Department Care Team (Latest Contact Info) Description 10/17/2024 Travel Social History Tobacco Use Types Packs/Day Years Used Date Smoking Tobacco: Former Cigarettes Q uit: 1996 Smokeless Tobacco: Never Alcohol Use Standard Drinks/Week Comments Never 0 (1 standard drink = 0.6 oz pur e alcohol) [facility] Utilities Answer Date Recorded In the past 12 months has e [employer], gas, oil, or water [employer] threatened to shut off services in your [...] were you homeless or living in a custodial (including now)? No 10/10/2024 Comments No Sex [...] documented as of this encounter Care Teams Presentation Manager Relationship Specialty Start Date End Date Terrance Glaser MD [address] [facility] [address] [place] [address] PCP - Neurologist Neurology 01/07/21 Octaviano Tineo MD [address] [place] [address] PCP - General Family Medicine 10/02/24 documented as of this encounter
--- OUTSIDE RECORDS SUMMARY | 2024-11-11 15:55 | XMS_ITS | Encounter Summary ---
Author Organization [facility] Address [address] [place] [address] Care Team Providers Care Cargo Broker Name Role Phone Terrance Glaser MD Unavailable [phone] Octaviano Tineo MD Primary Care Provider [phone] Encounter Details Date Type Department Care Team (Latest Contact Info) Description 10/10/2024 Travel Social History Tobacco Use Types Packs/Day Years Used Date Smoking Tobacco: Former Cigarettes Q uit: 1996 Smokeless Tobacco: Never Alcohol Use Standard Drinks/Week Comments Never 0 (1 standard drink = 0.6 oz pur e alcohol) [facility] Utilities Answer Date Recorded In the past 12 months has e [employer], gas, oil, or water [employer] threatened to shut off services in your [...] were you homeless or living in a half-way (including now)? No 10/10/2024 Comments No Sex [...] documented as of this encounter Care Teams Cargo Broker Relationship Specialty Start Date End Date Terrance Glaser MD [address] [facility] [address] [place] [address] PCP - Neurologist Neurology 01/07/21 Octaviano Tineo MD [address] [place] [address] PCP - General Family Medicine 10/02/24 documented as of this encounter
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
--- OUTSIDE RECORDS SUMMARY | 2024-11-11 15:56 | XMS_ITS | Clinical Summary ---
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 Name Role Phone Octaviano Tineo MD Primary Care Provider [phone] Kevin Valencia MD Unavailable [phone] Allergies Active Allergy Reactions Criticality Noted Date Comments Acetaminophen Itching 11/23/2023 Adhesive Rash 02/13/2021 Adhesive Tape Rash 11/03/2007 Silk & paper tape OK Asa-Calcium Ovsy-Opn-Rwfovrsb Other - Describe In Comment Field 02/13/2021 Stomach Upset Aspirin, Buffered Stomach Upset 02/26/2006 Aspirin GI Upset,Other - Describe In Comment Field Low 09/15/2020 GI Upset Cat Dander Hives 11/23/2023 Dog Dander Itching 11/23/2023 Dust Mites Angioedema,Hives 02/22/2008 Determined at allergy test. Esomeprazole Anaphylaxis High 02/26/2006 Other reaction(s): THROAT SWELLING Esomeprazole Magnesium Anaphylaxis High 11/23/2023 Estradiol Alopecia,Other - Describe In Comment Field 10/17/2020 Alopecia Other Reaction(s): Alopecia Alopecia Fentanyl Edema,Other - Describe In Comment Field High 03/11/2017 Other reaction(s): EDEMA Edema Gabapentin Other - Describe In Comment Field Low 01/07/2021 Facial twitching Hyaluronic Acid Edema Medium 08/29/2015 Synvisc reaction. Hydrocodone Itching 11/23/2023 Hydrocodone Bitartrate Itching 11/23/2023 Hylan G-F 20 Edema,Other - Describe In Comment Field 02/13/2021 Edema Latex Irritation At Patch Site 05/23/2007 Use bandaids or paper tape ONLY. Other Reaction(s): Irritation At Patch Site Use bandaids or paper tape ONLY. Maple Flavor Hives 02/22/2008 Reacts to Mold on Maple. Determined at allergy testing. Metformin GI Upset,Other - Describe In Comment Field 05/25/2018 GI Upset Other Reaction(s): GI Upset GI Upset Nitroimidazoles Nausea And Vomiting,Nausea Only 06/16/2009 Semaglutide Insomnia 10/02/2024 Penicillins Rash 02/26/2006 adults Penicillin V Rash Low 09/15/2020 Oxycodone-Acetaminophen Itching 07/13/2008 Primidone Tremors Low 12/07/2019 Other reaction(s): SEIZURE Other Reaction(s): Tremors Other reaction(s): SEIZURE Propranolol Tremors 12/07/2019 Other Reaction(s): Tremors Ragweed Hives 02/22/2008 Determined at allergy testing. Ragweed Pollen Hives 02/13/2021 Sunlight Rash Low 12/29/2017 Water blisters Hyaluronate (Hyaluronic Acid) Edema Medium 08/29/2015 Synvisc reaction. Hydrocodone-Acetaminophe n Itching 06/16/2007 Medications cholecalciferol (VITAMIN D3) 2,000 unit capsule Take 2,000 Units by mouth once daily. 0 04/22/19 11 Active multivitamin chewable (CENTRUM) 8 mg-400 mcg- 10 mcg chew Take 1 tablet by mouth once daily. Active pregabalin (LYRICA) 50 mg capsule Take 1 Capsule (50 mg) by mouth at bedtime. 0 08/19/19 22 Active hydrOXYzine pamoate (VISTARIL) 25 mg capsuleIndications :Generalized anxiety disorder Take 1 Capsule (25 mg) by mouth 2 times daily if needed for Anxiety. 50 Capsule 10/29/19 23 Active fluticasone (50 mcg per actuation) nasal solution (FLONASE)Indicatio ns:Otalgia, bilateral Inhale 1 [place] to both nostrils two times daily. 18.2 g 12 05/31/19 24 Active ondansetron (ZOFRAN ODT) 4 mg disintegrating tabletIndications: Nausea Place 1 Tablet (4 mg) on the tongue every 8 hours if needed for Nausea/Vomiting. 30 Tablet 06/07/19 24 Active olopatadine (PATANOL) 0.1 % ophthalmic solutionIndication s:Allergic conjunctivitis, unspecified laterality Place 1 Drop into both eyes two times daily. 15 mL 3 06/07/19 24 Active nystatin (MYCOSTATIN) 100,000 unit/gram topical creamIndications:Y east dermatitis Apply topically to affected area(s) two times daily. 60 g 06/09/19 24 Active azelastine 137 mcg/actuation (ASTELIN) nasal sprayIndications:A llergic rhinitis due to pollen, unspecified seasonality Inhale 2 Sprays into affected nostril(s) two times daily. 30 mL 08/02/19 24 Active cyclobenzaprine (FLEXERIL) 10 mg tabletIndications: Right arm pain Take 1 Tablet (10 mg) by mouth 3 times daily if needed for Muscle Spasm. 90 Tablet 5 09/23/19 24 Active DULoxetine 60 mg Delayed-release capsuleIndications :Anxiety,Chronic low back pain without sciatica, unspecified back pain laterality TAKE 1 CAPSULE BY MOUTH DAILY WITH 30 MG DOSE FOR A TOTAL DAILY DOSE OF 90 MG 90 Capsule 07/24/19 Active DULoxetine 30 mg Delayed-release capsuleIndications :Anxiety,Chronic low back pain without sciatica, unspecified back pain laterality Take 1 Capsule (30 mg) by mouth once daily. Take with 60mg capsule for a total of 90 mg daily 90 Capsule 07/24/19 25 Active cimetidine 400 mg tabletIndications: Gastroesophageal reflux disease, unspecified whether esophagitis present Take 1 Tablet (400 mg) by mouth two times daily. 180 Tablet 07/24/19 25 Active NIFEdipine 30 mg extended-release tabletIndications: Raynaud's phenomenon without gangrene Take 1 Tablet (30 mg) by mouth once daily before a meal. 90 Tablet 07/24/19 25 Active rosuvastatin 10 mg tabletIndications: Hyperlipidemia, unspecified hyperlipidemia type Take 1 Tablet (10 mg) by mouth at bedtime. 90 Tablet 07/24/19 25 Active triamcinolone 0.1 % creamIndications:I tch of skin Apply topically to affected area(s) two times daily. Use twice daily on affected area for up to 2 weeks straight, then stop 28.4 g 07/24/19 25 Active melatonin 10 mg TbERIndications:In somnia, idiopathic Take 1 Tablet by mouth at bedtime. 30 Tablet 11 07/27/19 25 Active HYDROmorphone (Dilaudid) 4 mg tabletIndications: Neuropathy of both feet,S/P lumbar fusion,Cervical spinal stenosis Take 1 Tablet (4 mg) by mouth every 8 hours if needed for Pain. 60 Tablet 07/25/19 25 Active topiramate 50 mg tablet Take 2 tablets (100mg) by mouth in the AM and 3 tablets (150mg) by mouth at bedtime. 07/31/19 25 Active meloxicam 15 mg tabletIndications: Cervical radiculopathy Take 1 Tablet (15 mg) by mouth once daily. 30 Tablet 1 09/14/19 25 Active traZODone (DESYREL) 100 mg tabletIndications: Acute insomnia Take 1-2 Tablets (100-200 mg) by mouth at bedtime. 10 Tablet 09/28/19 25 Active dulaglutide (TRULICITY) 0.75 mg/0.5 mL subcutaneous penIndications:Typ e 2 diabetes mellitus without complication, without long-term current use of insulin (HC) Inject 0.75 mg subcutaneous once weekly. 6 mL 3 10/03/19 25 Active clobetasol (TEMOVATE) 0.05 % creamIndications:L ichen sclerosus Use every 3rd night 60 g 1 10/03/19 25 Active Hospital, Clinic, or Other Facility Administered Medication Ordered Dose Route Frequency Start Date End Date Status betamethasone acet,sod phos 9 mg injection (CELESTONE SOLUSPAN)Indications:Left wrist sprain, sequela,Ulnar impaction syndrome, left 9 mg IArtic ONE TIME 10/31/2024 10/31/2024 Ended Active Problems Problem Noted Date Diagnosed Date Cervical radiculopathy 10/10/2024 Chronic insomnia 04/23/2024 Anxiety disorder 10/12/2022 Arthritis of left knee 06/08/2022 Hip pain, left 06/08/2022 Lumbar spinal stenosis 02/09/2022 Small fiber neuropathy 05/18/2021 Controlled substance agreement signed 05/06/2021 Overview (11/02/2024): On occasional hydromorphone for chronic neck pain. Generally only uses a couple pills a week at most. Previously saw pain clinic but now managed by primary care. Eosinophilic esophagitis 10/22/2020 Overview (10/22/2020): EGD 10/2020 EoE, no dysphagia continue H2 lulú S/P L4-5 spinal fusion 07/07/2018 Type 2 diabetes mellitus wit hout complication, without long-term current use of insulin 07/03/2018 Sciatica of right side 05/31/2018 S/P cervical spinal fusion C4 to C7 06/14/2017 Cervical spinal stenosis C3-4 02/18/2015 GERD (gastroesophageal reflux disease) 2 Overview (04/13/2012): EGD 03/2012 reflux Generalized anxiety disorder 08/23/2011 Overview (06/28/2014): , no children, unemployed and trying for SSI. 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 Marriage very good: Trauma history: Step father when patient age 33 some dysfunctional issues growing up as a teenager Past psychiatric medications: Amitriptyline for sleep -- did not work Lexapro worked for one month, then stopped working [employer]; felt strange on med Remeron--foggy Vistaril Trazodone was ineffective Lunesta Ambien stopped working Ambien CR Consider Effexor or Cymbalta Doxepin Restoril if off Ativan Lumbar facet arthropathy 05/27/2011 DDD (degenerative disc disease), lumbar 05/18/19 12 Irritable bowel syndrome 05/14/2011 Colon polyp 10/05/2010 Overview (10/04/2022): Colonoscopy 09/2010 2 mm polyp no tissue retrieved repeat in 5 years Last colonoscopy normal in 2017 Colonoscopy 09/2022 normal , repeat in 10 years Vitamin D deficiency 02/02/2010 Allergic rhinitis, cause unspecified 11/04/2007 Unspecified essential hypertension 11/03/2007 Right Sternocalvicular Joint Degeneration 2005 Resolved Problems Problem Noted Date Diagnosed Date Resolved Date Severe recurrent major depre ssion without psychotic features 10/22/2022 03/23/2024 Severe episode of recurrent major depressive disorder, without psychotic features 10/20/202212/2024 Moderate episode of recurren t major depressive disorder 10/12/2022 10/02/2024 Controlled substance agreement signed 10/14/2020 01/07/2021 Controlled substance agreeme nt signed- 09/28/2019 10/08/2019 11/02/2024 Overview (10/08/2019): Tosin Vincent .................... 10/08/2019 2:42 PM Controlled substance agreement signed 06/19/2018 01/07/2021 Overview (06/20/2018): Yobany Evangelista MD [facility] Freda Alfaro, [employer] 06/20/2018 1:52 PM Trochanteric bursitis of right hip 05/31/2018 11/03/2018 Weakness 05/31/2018 07/03/2018 Neuropathy due to medical condition 12/19/2017 05/18/2021 Chronic pain of right hip 05/21/2016 Right arm pain 10/31/2014 07/03/2018 Impingement syndrome of right shoulder 10/03/2014 11/03/2018 Shoulder pain, right 10/03/2014 019 Sacroiliac joint pain 08/21/20142024 Eyelid edema 05/20/2014 07/03/2018 Adjustment disorder with depressed mood 09/24/2013 07/03/2018 Obesity 01/16/2013 07/03/2018 Dry eyes 10/10/2012 07/03/2018 Impaired fasting glucose 10/10/2012 Myofascial muscle pain 03/10/201211/03 Headache(784.0) 01/26/2012 07/03/2018 Occipital neuralgia 01/26/2012 07/04/19 19 Other pain disorders related to psychological factors 01/12/2012 03/21/2014 Encounter for long-term (cur rent) use of other medications 10/25/2011 10/10/2012 Overview (10/25/2011): Cont sub agreement MH 10/25/11 Adjustment disorder with depressed mood 09/17/2011 10/25/2011 Pain medication agreement 05/19/2011 Encounter for long-term (cur rent) use of other medications 02/16/2011 03/21/2014 Overview (02/16/2011): Benzodiazepine. Uses infrequently. No evidence of misuse known. OK to refill PRN--not to be filled early. No contract on file. History of fusion of cervical spine 11/03/2010 01/07/2021 Hematochezia 10/05/2010 07/03/2018 DDD (degenerative disc disease), cervical 10/05/2010 07/03/2018 Adjustment disorder with depressed mood 01/29/2010 07/24/2013 Postoperative wound infection 05/08/2009 10/10/2012 Overview (05/08/2009): Cspine, cultures negative N&V (nausea and vomiting) 05/08/2009 Hypokalemia 04/29/2009 06/16/2009 Adjustment disorder with depressed mood 09/20/2008 07/22/2010 Candidiasis of vulva and vagina 04/05/2008 08/23/2011 Displacement of cervical int ervertebral disc without myelopathy 10/12/2007 03/21/2014 SLEEP APNEA AHI-37 08/14/2007 09/04/2007 11/30/2010 Circadian rhythm sleep disor nancy, delayed sleep phase type 09/04/2007 07/03/2018 Brachial plexus lesions 02/26/200606/13 Obesity, Unspecified 02/26/2006 014 Anxiety State, Unspecified 02/26/2006 0 08/23/2011 Reflux 10/10/2012 Acute postoperative pain Chronic, continuous use of opioids 11/03/2018 Encounters Date Type Department Care Team Description 11/09/2024 Telephone [facility] [address] [place] [address] Octaviano Tineo MD Outside Order (Needs urgent X-ray orders plus MRI (and help scheduling)) 11/02/2024 3:40 PM CDT Office Visit [facility] [address] [place] [address] [address] Octaviano Tineo MD Diabetes; Pain 11/02/2024 Travel 11/02/2024 Transcribe Orders [address] [place] [address] Nolvia Valera PA 10/31/2024 9:00 AM CDT Procedure Only [facility] [address] [facility] [address] Irving Harrison MD Musculoskeletal Problem (USGI left wrist) 10/31/2024 Travel 10/05/2024 Telephone [facility] [address] [facility] [address] Octaviano Tineo MD Prior Authorization (dulaglutide (TRULICITY) 0.75 mg/0.5 mL subcutaneous pen APPROVED from September 05, 2024 to October 05, 2025) 10/02/2024 11:20 AM CDT Office Visit [facility] [address] [facility] [address] Octaviano Tineo MD Preoperative Exam ([facility] Dr[facility] Mcdonald Spinal Cord stem from neck 10/10/24) 10/02/2024 Travel 09/27/2024 2:30 PM CDT Office Visit [facility] [address] [place] [facility] [place] [address] Jon Moreno MD Sleep Follow-up 09/27/2024 Travel 09/27/2024 Telephone [facility] [address] [place] [facility] [place] [address] Irving Harrison MD KNEE 09/26/2024 Telephone [facility] [address] [facility] [place] [address] Irving Harrison MD Results (MRI) 09/25/2024 4:15 PM CDT Ancillary Procedure [facility] [address] [place] [address] 09/25/2024 Travel 09/13/2024 3:00 PM CDT Office Visit [facility] [address] [place] [facility] [place] [address] Irving Harrison MD Musculoskeletal Problem (Follow up left wrist pain/Follow up left knee pain) 09/13/2024 Travel 08/15/2024 3:40 PM CDT Office Visit [facility] [address] [place] [address] Irving Harrison MD Musculoskeletal Problem (Follow up left wrist pain) 08/15/2024 Travel from Last 3 Months Immunizations Immunization Administration Dates Next Due COVID-19 VACCINE SPIKEVAX (M ODERNA 50MCG/0.5ML) 12YO+ PFS 12/29/2023,03/29/2023 COVID-19 vaccine (Pfizer-Bio NTech 30mcg/0.3mL) 12YO+ BIVALENT PF, MDV 12/25/2021 COVID-19 vaccine (Pfizer-Bio NTech 30mcg/0.3mL) 12YO+ SNOW-SUCROSE PF, MDV 08/18/2021 COVID-19 vaccine (Pfizer-Bio NTech 30mcg/0.3mL) PF, MDV 06/28/2020,06/07/2020 Hepatitis B (Adult) 05/14/2019,12/07/2018,2018 INFLUENZA, IIV3 PF (AGE >= 6 MO) 12/29/2023 Influenza A (H1N1), Inactivated 03/26/2009 Influenza A (H1N1), Inactiva ángel (Age >=3 Years) 03/26/2009 Influenza, IIV3 (Age >=3 years) 01/16/2013,12/23,12/03/2008 Influenza, IIV4 11/29/2022,,12/29/2020,2019,12/07/2018,11/15/2017,12/25/2016,0 12/08/2015,12/21/2014,11/28/2013, 010 Pneumococcal Conj 20-valent (Prevnar 20) 08/18/2021 Pneumococcal Poly,23-Valent (Pneumovax) 11/03/2018 Td (Age >=7 Years) 08/18/2021 Tdap 07/13/2011 Zoster (Shingrix-RZV, recombinant) 03/20/2021, Family History Medical History Relation Name Comments Heart Disease Brother 1 VA dies at age 41 Depression Brother 2 Diabetes type II Brother 2 Heart attack Brother 2 Heart Disease Father VA AT AGE 56 Hypertension Mother Heart Disease Paternal Grandfather VA - d ied at 57 Heart failure Sister Kidney failure Sister Liver disease Sister Anesthesia Problem No Family History Cancer No Family History Cancer-breast No Family History Cancer-colon No Family History Cancer-ovarian No Family History Cancer-prostate No Family History Relation Name Status Comments Brother 1 (Age 42) VA-in his sleep Brother 2 Father (Age 60) CAD, first VA age 52 Maternal Grandfather Maternal Grandmother Mother Alive Paternal Grandfather (Age 53) VA Paternal Grandmother Sister Social History Tobacco Use Types Packs/Day Years Used Date Smoking Tobacco: Former Cigarettes Q uit: 03/14/1996 Smokeless Tobacco: Never Tobacco Cessation:Counseling Given: No Comments:quit in 1996. ZERO. Alcohol Use Standard Drinks/Week Comments No 0 (1 standard drink = 0.6 oz pur e alcohol) ZERO, PHQ-2 Answer Date Recorded PHQ-2 TOTAL SCORE 3 11/02/2024 Social Connections Answer Date Recorded Do you often feel lonely or isolated from those around you? 0 05/07/2024 Financial Resource Strain Answer Date R ecorded Difficulty of Paying Living Expenses 3 05/07/2024 Difficulty of Paying Living Expenses Not on file 05/07/2024 Food Insecurity Answer Date Recorded Do you worry your food will run out before you are able to buy more? 1 05/07/2024 Transportation Needs Answer Date Record ed Does lack of transportation keep you from medica l appointments? 1 05/07/2024 Does lack of transportation keep you from work, meetings or getting things that you need? 1 05/07/2024 Housing Stability Answer Date Recorded What is your housing situation today? 1 05/07/2024 Utilities Answer Date Recorded Do you have trouble paying f or utilities (for example, heat, electricity, water, phone)? 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 Not on file Not o n file Not on file Obstetrics History Para Term AB IAB SAB Ectopic Multiple Livin g Live Births 0 0 0 0 0 0 0 0 0 0 Last Filed Vital Signs Vital Sign Reading Time Taken Comments Blood Pressure 124/83 11/02/2024 3:43 PM CDT Pulse 73 11/02/2024 3:43 PM CDT Temperature 36.9 C (98.4 F) 10/31/2024 9:00 AM CDT Respiratory Rate 16 02/13/2024 8:24 AM SOILS TECHNICIAN Oxygen Saturation 97% 11/02/2024 3:43 PM CDT Inhaled Oxygen Concentration - - Weight 98.6 kg (217 lb 4.8 oz) 11/02/2024 3:43 P M CDT Height 166.4 cm (5' 5.5) 09/27/2024 2:19 PM CDT Body Mass Index 35.61 09/27/2024 2:19 PM CDT Plan of Treatment Upcoming Encounters Date Type Department Care Team (Late st Contact Info) Description 11/20/2024 1:30 PM CDT Appointment [facility] [address] [place] [address] Scot Quevedo, PT [address] [place] [address] 03/01/2025 2:50 PM SOILS TECHNICIAN Office Visit [facility] [address] [place] [address] Octaviano Tineo MD [address] [place] [address] Health Maintenance Due Date Last Done Comments Mammogram for age 45-75 04/18/2024 04/18/19 24, 01/18/2022, 04/02/2020, Additional history exists Influenza Vaccine (#1) 2024 4, 11/29/2022, 12/25/2021, Additional history exists BMI (ht and wt on same day) for age 18+ 09/27/2025 09/27/2024, 03/23/2024, 03/17/2023, Additional history exists Depression screening for age 12+ 11/02/2025 11/02/2024, 10/06/2023, 10/06/2023, Additional history exists Lipids for age 45-75 03/23/2029 03/23/2024, 11/23/2022, 11/20/2021, Additional history exists Tetanus booster 08/19/2031 08/18/2021, 07/13/2011 Colonoscopy through age 75 10/04/203210/04, 10/04/2022, 12/24/2016, Additional history exists RSV vaccine for adults or (1 - 1-dose 75+ series) 2045 HIV for age 15-65 Completed 07/19/2007 Hepatitis C screening for ag e 18-79 Completed 02/04/2017, 06/23/2009 Hepatitis B series for 19+ Completed 05/13, 12/07/2018, 11/03/2018 Zoster (shingles) series for age 50+ Completed 03/20/2021, 12/29/2020 Pneumococcal series for age 50+ Completed , 11/03/2018 COVID-19 vaccine series Completed 12/29/19, 03/29/2023, 12/25/2021, Additional history exists Medical Devices Implanted Type Area Hand Buffing Wheel Former Device Identifier Shelf Expiration Date Model / Serial / Lot Plate Cerv Ant 42.5mm Atlantisvision [id number] - [id number] Implanted:Qty: 1 on 11/03/2007 at [facility] Spine Implants Spine SOFAMOR DANEK 976-142# / / [id number] 9spacer Aldair/Canclls 7mm P Lordotic Acf Fd [id number] [[id number]] Implanted:Qty: 1 on 11/03/2007 at [facility] Explanted:at [facility] (Quantity not on file) Spine [employer] 08/29/2010 [id number]# / [id number] / [id number] Implanted:Qty: 1 on 11/03/2007 at [facility] Explanted:at [facility] (Quantity not on file) Spine SPINAL GRAFT 06/10/2008 [id number] / [id number] / Description:DBM PUTTY 1CC [id number] 1spacer Aldair/Canclls 7mm P Lordotic Acf Fd [id number] [[id number]] Implanted:Qty: 1 on 11/03/2007 at [facility] Explanted:at [facility] (Quantity not on file) Spine [employer] 09/26/2010 [id number]# / [id number] / Screw Fix 4.0x13 Self Drill - [id number] Implanted:Qty: 6 on 11/03/2007 at [facility] Spine KRISTIE GREENE [id number]# / / Torsten 3.5x60mm Implanted:Qty: 2 on 04/23/2009 at [facility] Spine [id number] / / Description:TORSTEN 3.5X60MM [id number] 9pbone Canclls Crushed 30cc [[id number]] Implanted:Qty: 1 on 04/23/2009 at [facility] Explanted:at [facility] (Quantity not on file) Spine [employer] 11/27/2011 [id number]# / [id number] / [id number] [id number] Progenix Dbm 5cc [[id number]] Implanted:Qty: 1 on 04/23/2009 at [facility] Explanted:at [facility] (Quantity not on file) Spine SPINAL GRAFT 02/18/2011 [id number]# / [id number] / Screw Oasys 4.0tjj32ga Biased Polyaxial - [id number] Implanted:Qty: 2 on 04/23/2009 at [facility] N/A: Spine HOWMEDICA [id number]# / / Screw Oasys 3.9gow93sz Biased Polyaxial - [id number] Implanted:Qty: 4 on 04/23/2009 at [facility] N/A: Spine [employer] [id number]# / / Lulú Oasys [id number] - [id number] Implanted:Qty: 6 on 04/23/2009 at [facility] N/A: Spine HOWMEDICA [id number]# / / [id number] Matrix .5cc Dbx Putty Dbm [[id number]] Implanted:Qty: 1 on 02/18/2015 by Federico Cordova MD at [facility] Explanted:at [facility] (Quantity not on file) N/A: Spine [employer] 11/22/2016 [id number]# / [id number] / [id number] 6bone Cerv 7mm 4deg [place] W/P [[id number]] Implanted:Qty: 1 on 02/18/2015 by Federico Cordova MD at [facility] Explanted:at [facility] (Quantity not on file) N/A: Spine [place] Spine 12/24/2019 [id number]# / [id number] / Plate Cerv 2lvl 34mm Aviator Ant - [id number] Implanted:Qty: 1 on 02/18/2015 by Federico Cordova MD at [facility] N/A: Spine Joaquin Spine [id number]# / / Screw Cerv Ant 4.0x12mm Aviator Va Slf Drill - [id number] Implanted:Qty: 2 on 02/18/2015 by Federico Cordoav MD at [facility] N/A: Spine Joaquin Spine [id number] / / Screw Cerv Ant 4.0x14mm Aviator Va Slf Drill - [id number] Implanted:Qty: 4 on 02/18/2015 by Federico Cordova MD at [facility] N/A: Spine Joaquin Spine [id number]# / / [id number] one 1-4mm 30cc Medtronic Chips Canclls Freeze Dried Implanted:Qty: 1 on 07/07/2018 by Federico Cordova MD at [facility] Explanted:at [facility] (Quantity not on file) N/A: Spine Medtronic Spine/Ortho 12/08/2022 [id number]# / [id number] / [id number] one Matrix 3cc [place] Dbf Putty Dbm Implanted:Qty: 1 on 07/07/2018 by Federico Cordova MD at [facility] Explanted:at [facility] (Quantity not on file) N/A: Spine Medtronic Spine/Ortho 01/25/2020 [id number]# / [id number] / Spacer Lmbr [id number] Zyston Convex Stra Plif - [id number] Implanted:Qty: 1 on 07/07/2018 by Federico Cordova MD at [facility] N/A: Spine Jelani [employer] 06/18/2026 [id number] # / / [id number] Screw Lmbr Post 6.5x45mm Vitality Va - [id number] Implanted:Qty: 4 on 07/07/2018 by Federico Cordova MD at [facility] N/A: Spine [employer]elani [employer] Spine 07.26732. 075# / / Set Screw Lmbr 5.5-6mm Vitality Torque - [id number] Implanted:Qty: 4 on 07/07/2018 by Federico Cordova MD at [facility] N/A: Spine Jelani [employer] Spine 07.21261. 001# / / Torsten Lmbr 50x5.5mm Vitality Cvd Titnm - [id number] Implanted:Qty: 1 on 07/07/2018 by Federico Cordova MD at [facility] N/A: Spine Jelani [employer] Spine 07.80605. 007# / / Torsten Lmbr 45x5.5mm Vitality Cvd Titnm - [id number] Implanted:Qty: 1 on 07/07/2018 by Federico Cordova MD at [facility] N/A: Spine Jelani [employer]omet Spine 07.63518. 006# / / Lead Spinal 60cm Quattrode - [id number] Implanted:Qty: 1 on 03/20/2020 by Jose Antonio Wilkerson MD at [facility] N/A: Thoracic Vertebrae St Ovid[employer] Neuromodulation 09/19/2021 [id number] / [id number] / Lead Spinal 60cm Quattrode - [id number] Implanted:Qty: 1 on 03/20/2020 by Jose Antonio Wilkerson MD at [facility] N/A: Thoracic Vertebrae St [employer] Neuromodulation 07/10/2021 [id number] / [id number] / Stimulator Neuro Proclaim 7 Ipg - [id number] Implanted:Qty: 1 on 03/20/2020 by Jose Antonio Wilkerson MD at [facility] N/A: Thoracic Vertebrae St [employer] 12/19/2021 3662 / [id number] / Ancr Neuro Howard-Lock - [id number] Implanted:Qty: 2 on 03/20/2020 by Jose Antonio Wilkerson MD at [facility] N/A: Thoracic Vertebrae St [employer] Neuromodulation 04/25/2021 [id number] / / [id number] one 1-4mm 30cc Medtronic Chips Canclls Freeze Dried Implanted:Qty: 1 on 02/09/2022 by Federico Cordova MD at [facility] Explanted:at [facility] (Quantity not on file) N/A: Spine Medtronic Spine/Ortho 12/01/2025 [id number] / [id number] / Spacer Lmbr [id number] Zyston Convex Stra Tlif - [id number] Implanted:Qty: 1 on 02/09/2022 by Federico Cordova MD at [facility] N/A: Spine Jelani [employer]omet 12/26/2028 [id number] / / [id number] Set Screw Lmbr 5.5-6mm Vitality Torque - [id number] Implanted:Qty: 6 on 02/09/2022 by Federico Cordova MD at [facility] N/A: Spine [employer]ani [employer] Spine [id number] / / 6.5x45mm Screw Implanted:Qty: 3 on 02/09/2022 by Federico Cordova MD at [facility] N/A: Spine [id number] / / Description:6.5X45MM SCREW [id number] one Matrix 3cc [place] Dbf Putty Dbm Implanted:Qty: 1 on 02/09/2022 by Federico Cordova MD at [facility] Explanted:at [facility] (Quantity not on file) N/A: Spine Medtronic Spine/Ortho 12/31/2023 [id number] / [id number] / Procedures Procedure Name Priority Date/Time Associated Diagnosis Comments HEMOGLOBIN A1C MONITORING (POCT) Routine 11/02/2024 3:32 PM CDT Type 2 diabetes mellitus without complication, without long-term current use of insulin (HC) BASIC METABOLIC PANEL Routine 11/02/2024 3:32 PM CDT Type 2 diabetes mellitus without complication, without long-term current use of insulin (HC) BEDSIDE US STUDY ARCHIVE Routine 10/31/2024 4:25 PM CDT Left wrist sprain, sequela Ulnar impaction syndrome, left MR WRIST LEFT WO Routine 09/25/2024 5:04 PM CDT Left wrist sprain, sequela Chronic pain of left wrist LIPID PANEL Routine 03/23/2024 2:19 PM SOILS TECHNICIAN Hyperlipidemia, unspecified hyperlipidemia type XR MAMMO NOAH BILAT DIAG Routine 04/18/2023 2:50 PM SOILS TECHNICIAN Axillary lump, right COLONOSCOPY SCREENING Routine 10/04/2022 12:00 AM CDT Positive FIT (fecal immunochemical test) ANTI HCV Routine 02/04/2017 3:21 PM SOILS TECHNICIAN Paresthesia of both legs Anxiety Memory problem Limb pain ANTI HIV 1/2 Routine 07/19/2007 2:46 PM CDT Malaise And Fatigue Vaginitis And Vulvovaginitis from Last 3 Months or Most Recently Relevant to Health Maintenance Results * (ABNORMAL) POCT Hemoglobin A1C Monitoring (11/02/2024 3:32 PM CDT) POC HEMOGLOBIN A1C 6.1(H) <6.0 % OF TOTAL HGB 11/02/2024 3:47 PM CDT [facility] Comment: Any point of care results exhibiting inconsistency with the patient's clinical status should be repeated using a different testing method. Blood BLOOD SPECIMEN / Unknown [facility] / Unknown 11/02/2024 3:32 PM CDT 11/02/2024 3:34 PM CDT us Octaviano Tineo MD CHEMISTRY Final Resu lt [facility] [address] [place] [address], [address] [address], [place] [phone] * (ABNORMAL) BASIC METABOLIC PANEL (11/02/2024 3:32 PM CDT) SODIUM 143 135 - 146 mmol/L 11/03/2024 3:21 AM CDT [facility] POTASSIUM 3.4(L) 3.5 - 5.3 mmol/L 11/03/2024 3:21 AM CDT [facility] CARBON DIOXIDE 24 20 - 32 mmol/L 11/03/2024 3:21 AM CDT [facility] GLUCOSE 147(H) 65 - 99 mg/dL 11/03/2024 3:21 AM CDT [facility] Comment: Fasting reference interval For someone without known diabetes, a glucose value >125 mg/dL indicates that they may have diabetes and this should be confirmed with a follow-up test. CALCIUM 9.0 8.6 - 10.4 mg/dL 11/03/2024 3:21 AM CDT [facility] CREATININE 0.97 0.50 - 1.03 mg/dL 11/03/2024 3:21 AM CDT [facility] BUN/CREATININE RATIO SEE NOTE: 6 - 22 (calc) 11/03/2024 3:21 AM CDT [facility] Comment: Not Reported: BUN and Creatinine are within reference range. EGFR 69 > OR = 60 mL/min/1. 73m2 11/03/2024 3:21 AM CDT [facility] UREA NITROGEN (BUN) 14 7 - 25 mg/dL 11/03/2024 3:21 AM CDT [facility] ELECTROLYTE BALANCE 8 7 - 17 mmol/L (calc) 11/03/2024 3:21 AM CDT [facility] CHLORIDE 111(H) 98 - 110 mmol/L 11/03/2024 3:21 AM CDT [facility] Blood BLOOD SPECIMEN / Unknown [facility] / Unknown 11/02/2024 3:32 PM CDT 11/02/2024 3:34 PM CDT us Octaviano Tineo MD CHEMISTRY Final Resu lt [facility] [address] [place] [address], [place] [phone] * BEDSIDE US STUDY ARCHIVE (10/31/2024 4:25 PM CDT) Narrative Yaz Fernandez R.T. (ARRT) - 10/31/2024 4:25 PM CDT The patient was seen for ultrasound guided injection by Dr. Irving Harrison. Ultrasound was not used for diagnostic purposes, but to guide the needle placement and document the position of the injection. See patient's EPIC encounter for the detail of the procedure; see LIVE for saved images of the injection. us Irving Harrison MD PROCEDURE ORD Final Resu lt * MR WRIST LEFT WO (09/25/2024 5:04 PM CDT) Anatomical Region Laterality Modality WRIST L Magnetic Resonan ce 09/26/2024 11:3 6 AM CDT Impressions 09/26/2024 11:36 AM CDT 1. No acute fracture. 2. Edema associated with the radiocarpal and dorsal aspect of the midcarpal joint capsules which may relate to capsular sprain or capsulitis depending on trauma history. 3. Subchondral bone marrow edema involving the proximal ulnar aspect of the lunate bone likely relates to limited grade 4 chondromalacia. 4. The intrinsic wrist ligaments and TFC are intact. 5. Tendons intact. Dictated by Dwayne Shin MD @ 09/26/2024 11:36:11 AM (Electronically Signed) Narrative 09/26/2024 11:36 AM CDT For Patients: As a result of the Century Cures Act, medical imaging exams and procedure reports are released immediately into your electronic medical record. You may view this report before your referring provider. If you have questions, please contact your health care provider. CLINICAL INDICATION: Left wrist sprain. Chronic left wrist pain. COMPARISON IMAGING STUDIES: Radiographs from 07/25/2024. TECHNICAL: Non contrast MRI of the left wrist. Axial, sagittal and coronal T1, PD, PDFS, T2 fat-sat and ld/3D T2 images. 1.5 [place] MR scanner. FINDINGS: JOINTS: The DRUJ is maintained. There is subchondral bone marrow edema involving the proximal ulnar aspect of the lunate bone which likely relates to limited proximal grade 4 chondromalacia. There is mild synovitis within the radiocarpal joint space along with capsular edema. There is edema involving the midcarpal joint capsule dorsally. Midcarpal joint spaces otherwise maintained. Small amount of pisotriquetral joint fluid. Carpal-metacarpal articulations are maintained. OSSEOUS STRUCTURES: No distal radial or ulnar fracture. No scaphoid fracture. As above, there is subchondral bone marrow edema involving the proximal ulnar aspect of the lunate bone which likely relates to chondromalacia. TRIANGULAR FIBROCARTILAGE COMPLEX: TFC: The central radial aspect of the TFC is thinned without definitive full-thickness tear. Radioulnar Ligaments: The volar and dorsal radioulnar ligaments are intact. Ulnar Collateral Ligament, Meniscal Homologue and Prestyloid Recess: Unremarkable. LIGAMENTS: Scapholunate: Intact. No widening of the interval. Lunotriquetral: Intact. No widening of the interval. TENDONS: Flexor Tendons: Intact. No tenosynovitis. Extensor Tendons (Compartments 1-5): Intact. No tenosynovitis. ECU and 6th Extensor Compartment: The extensor carpi ulnaris tendon is intact. No abnormal tendon subluxation to suggest subsheath injury. No tenosynovitis. NEUROVASCULAR: Median Nerve: intact. Ulnar Nerve: intact. OTHER FINDINGS: No soft tissue mass. Procedure Note Dwayne Shin MD - 09/26/2024 For Patients: As a result of the Cures Act, medical imagingexams and procedure reports are released immediately into your electronicmedical record. You may view this report before your referring provider.If you have questions, please contact your health care provider. CLINICAL INDICATION: Left wrist sprain. Chronic left wrist pain. COMPARISON IMAGING STUDIES: Radiographs from 07/25/2024. TECHNICAL: Non contrast MRI of the left wrist. Axial, sagittal and coronal T1, PD,PDFS, T2 fat-sat and ld/3D T2 images. 1.5 [place] MR scanner. FINDINGS: JOINTS: The DRUJ is maintained. There is subchondral bone marrow edema involving the proximal ulnar aspectof the lunate bone which likely relates to limited proximal grade 4chondromalacia. There is mild synovitis within the radiocarpal joint spacealong with capsular edema. There is edema involving the midcarpal joint capsule dorsally. Midcarpaljoint spaces otherwise maintained. Small amount of pisotriquetral joint fluid. Carpal-metacarpal articulations are maintained. OSSEOUS STRUCTURES: No distal radial or ulnar fracture. No scaphoid fracture. As above, thereis subchondral bone marrow edema involving the proximal ulnar aspect ofthe lunate bone which likely relates to chondromalacia. TRIANGULAR FIBROCARTILAGE COMPLEX: TFC: The central radial aspect of the TFC is thinned without definitivefull- thickness tear. Radioulnar Ligaments: The volar and dorsal radioulnar ligaments areintact. Ulnar Collateral Ligament, Meniscal Homologue and Prestyloid Recess:Unremarkable. LIGAMENTS: Scapholunate: Intact. No widening of the interval. Lunotriquetral: Intact. No widening of the interval. TENDONS: Flexor Tendons: Intact. No tenosynovitis. Extensor Tendons (Compartments 1-5): Intact. No tenosynovitis. ECU and 6th Extensor Compartment: The extensor carpi ulnaris tendon isintact. No abnormal tendon subluxation to suggest subsheath injury. Notenosynovitis. NEUROVASCULAR: Median Nerve: intact. Ulnar Nerve: intact. OTHER FINDINGS: No soft tissue mass. IMPRESSION: 1. No acute fracture. 2. Edema associated with the radiocarpal and dorsal aspect of themidcarpal joint capsules which may relate to capsular sprain or capsulitisdepending on trauma history. 3. Subchondral bone marrow edema involving the proximal ulnar aspect ofthe lunate bone likely relates to limited grade 4 chondromalacia. 4. The intrinsic wrist ligaments and TFC are intact. 5. Tendons intact. Dictated by Dwayne Shin MD @ 09/26/2024 11:36:11 AM (Electronically Signed) us Irving Harrison MD MR Final Resu lt * LIPID PANEL (03/23/2024 2:19 PM SOILS TECHNICIAN) CHOLESTEROL, TOTAL 153 <200 mg/dL [facility] HDL CHOLESTEROL 51 > OR = 50 mg/dL [facility] TRIGLYCERIDES 121 <150 mg/dL [facility] LDL-CHOLESTEROL 80 mg/dL (calc) [facility] Comment: Reference range: <100 Desirable range <100 mg/dL for primary prevention; <70 mg/dL for patients with CHD or diabetic patients with > or = 2 CHD risk factors. LDL-C is now calculated using the Juan calculation, which is a validated novel method providing better accuracy than the Friedewald equation in the estimation of LDL-C. Kalyan BUTCHER et al. MANISHA. 2013;310(19): 2966-1459 (http://education.Wello/faq/PJL188) CHOL/HDLC RATIO 3.0 <5.0 (calc) [facility] NON HDL CHOLESTEROL 102 <130 mg/dL (calc) [facility] Comment: For patients with diabetes plus 1 major ASCVD risk factor, treating to a non-HDL-C goal of <100 mg/dL (LDL-C of <70 mg/dL) is considered a therapeutic option. Blood BLOOD SPECIMEN / Unknown 03/23/2024 2:19 PM SOILS TECHNICIAN 03/23/2024 2:19 PM SOILS TECHNICIAN us Octaviano Tineo MD CHEMISTRY Final Resu lt [facility] [address] [place] [address], [facility] [address] [place] [address] * XR MAMMO NOAH BILAT DIAG (04/18/2023 2:50 PM SOILS TECHNICIAN) Anatomical Region Laterality Modality BREASTS, Breast Left, Breast Right Bilateral Mammography Impressions 04/18/2023 3:54 PM SOILS TECHNICIAN No suspicious findings. No evidence of malignancy. RECOMMENDATIONS: Routine BILATERAL screening mammography. BI-RADS Category 1: Negative Dictated by: Jose Antonio Hunt MD @04/18/2023 3:08:00 PM CRL/luis albertow PATIENTS: You will also receive a letter with your examination results in an easy to read format. If you have questions about your results, please contact your referring provider. Narrative 04/18/2023 3:54 PM SOILS TECHNICIAN As a result of the 21st Century Cures Act, medical imaging exams and procedure reports are released immediately into your electronic medical record. You may view this report before your referring provider. If you have questions, please contact your health care provider. BILATERAL BREAST MAMMOGRAM DIGITAL ADDITIONAL VIEWS WITH TOMOSYNTHESIS 04/18/2023 CLINICAL HISTORY: RIGHT axillary lump. COMPARISON: 01/18/2022, 04/02/2020, 02/16/2019, 07/22/2017. TECHNIQUE: Digital BILATERAL mammogram in 4 projections. Real-time ultrasound imaging of RIGHT axilla with imaging documentation. BREAST COMPOSITION: Scattered fibroglandular densities. FINDINGS: 3D CC/MLO BILATERAL mammogram images performed. No suspicious masses or architectural distortion. No suspicious calcifications. No adenopathy. Targeted RIGHT axillary ultrasound performed. No fluid collection or mass. No adenopathy. Octaviano Tineo MD MAMMO Final Resu lt * COLONOSCOPY SCREENING (10/04/2022 12:00 AM CDT) Yves Wakefield MD GI PROCEDURE ORD Final Result * ANTI HCV (02/04/2017 3:21 PM SOILS TECHNICIAN) HEPATITIS C ANTIBODY Non-Reacti ve Non-Reacti ve 02/04/2017 7:48 PM SOILS TECHNICIAN [facility] Blood BLOOD SPECIMEN / Unknown Venipuncture / Unknown 02/04/2017 3:21 PM SOILS TECHNICIAN 02/04/2017 3:21 PM SOILS TECHNICIAN Narrative [facility] - 02/04/2017 7:48 PM SOILS TECHNICIAN Antibodies to HCV not detected; does not exclude the possibility of exposure to HCV. Octaviano Tineo MD SEND OUTS Final Resu lt [facility] [address] [place] [address], * ANTI HIV 1/2 (07/19/2007 2:46 PM CDT) ANTI HIV 1/2 Non-reacti ve [facility] Blood specimen (specimen) BLOOD SPECIMEN / Unknown 07/19/2007 2:46 PM CDT 07/19/2007 2:33 PM CDT Rosemary Jenkins DO SEND OUTS Final Resu lt [facility] INTERNAL ZIP [address] [address] from Last 3 Months or Most Recently Relevant to Health Maintenance [facility] [address] [place] [address] Advance Directives * Full Code (Latest Code Status on File) Date Activated Date Inactivated Comments 02/10/2022 6:59 AM 02/11/2022 6:00 PM Question Answer Comments Code Status Discussion: Reviewed Preferences * Full Code Date Activated Date Inactivated Comments 02/09/2022 5:46 PM 02/10/2022 6:59 AM Question Answer Comments Code Status Discussion: Unable to Assess Preferences, Provider to review later * Full Code Date Activated Date Inactivated Comments 03/20/2020 8:10 AM 03/20/2020 4:52 PM Question Answer Comments Code Status Discussion: Not Discussed * Full Code Date Activated Date Inactivated Comments 07/07/2018 3:02 PM 07/10/2018 4:10 PM Question Answer Comments Code Status Discussion: Discussed * Full Code Date Activated Date Inactivated Comments 02/18/2015 11:11 AM 02/20/2015 2:49 PM Care Teams 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
--- OUTSIDE RECORDS SUMMARY | 2024-11-11 15:56 | XMS_ITS | Clinical Summary ---
Author Organization [facility] Address [address] [facility] [place] [address] Care Team Providers Care Blood And Plasma Laboratory Assistant Name Role Phone Octaviano Tineo MD Primary Care Provider [phone] Edvin Harper MD Unavailable [phone] ChompooponKath rinaldi MD Unavailable [phone] ChompKath toussaint MD Unavailable [phone] Allergies Active Allergy Reactions Criticality Noted Date Comments Acetaminophen Itching 11/23/2023 Adhesive Tape Rash Low 11/03/2007 Silk & paper tape OK Aspirin Nausea 02/26/2006 Cats Itching,Hives 02/22/2008 Determined at allergy testing Minor reaction, determined at allergy testing. Dog Epithelium (Canis Lupus Familiaris) Itching 11/23/2023 Dust Mites Hives 02/22/2008 Other reaction(s): Angioedema Determined at allergy test. Esomeprazole Anaphylaxis High 02/26/2006 Estradiol Other (See Comments) 10/17/2020 Other Reaction(s): Alopecia Alopecia Fentanyl Swelling 03/11/2017 Flavoring Agent (Non-Screening) Hives 03/19/2024 Gabapentin Other (See Comments) Low 01/07/2021 Facial twitching Hydrocodone Itching 11/23/2023 Hydrocodone-Acetaminoph en Itching 06/16/2007 Latex 05/23/2007 Other Reaction(s): Irritation At Patch Site Use bandaids or paper tape ONLY. Maple Flavoring Agent (Non-Screening) Hives 02/22/2008 Reacts to Mold on Maple. Determined at allergy testing. Metformin Other (See Comments) 05/25/2018 Other Reaction(s): GI Upset GI Upset No Clinical Screening - Other Allergy Nausea and Vomiting 06/16/2009 Oxycodone-Acetaminophen Itching 07/13/2008 Penicillins Rash Low 02/26/2006 Primidone Low 12/07/2019 Other Reaction(s): Tremors Other reaction(s): SEIZURE Propranolol 12/07/2019 Other Reaction(s): Tremors Ragweeds Hives 02/22/2008 Determined at allergy testing. Sodium Hyaluronate (Van) Swelling Medium 08/29/2015 Synvisc reaction. Medications cholecalciferol (D2000 ULTRA STRENGTH) 2000 units CAPS Take 2,000 Units by mouth daily 1 Active Multiple Vitamins-Minera ls (MULTIVITAMIN GUMMIES WOMENS PO) Take 2 chew tab by mouth daily 7 Active B Complex Vitamins (VITAMIN-B COMPLEX) TABS Take 1 tablet by mouth daily 8 Active lisinopril (PRINIVIL/ZESTR IL) 10 MG tablet Take 10 mg by mouth daily 7 Active ondansetron (ZOFRAN-ODT) [address] 4 mg under the tongue every 8 hours as needed 7 Active gabapentin (NEURONTIN) 300 MG capsule Take 900 mg by mouth 2 times daily 7 Active tiZANidine (ZANAFLEX) 4 MG tablet 7 Active meloxicam (MOBIC) 15 MG tablet Take 15 mg by mouth At Bedtime 8 Active DULoxetine (CYMBALTA) 30 MG EC capsule Take with 60 mg dose for 90 mg total daily dose 8 Active DULoxetine (CYMBALTA) 60 MG EC capsule Take 60 mg by mouth 8 Active ranitidine (ZANTAC) 300 MG tablet Take 300 mg by mouth 2 times daily 8 Active olopatadine (PATANOL) 0.1 % ophthalmic solution 5 Active hydrochlorothia zide (HYDRODIURIL) 25 MG tablet Take 25 mg by mouth daily 7 Active HYDROmorphone (DILAUDID) 4 MG tablet 1 to 1.5 tabs po q 4 hours prn 8 Active NONFORMULARY Diltiazem 2% ointment - apply tid for up to 8 weeks 8 Active NONFORMULARY 5% Ketamine, 2% Amitriptyline, 5% Lidocaine in transdermal gel; 1/2 g to each foot up to tid 8 Active clobetasol (TEMOVATE) 0.05 % cream Use nightly for 1 month, then begin slow taper 8 Active HYDROXYZINE HCL PO Take 25 mg by mouth 4 times daily Active cetirizine (ZYRTEC) 10 MG tablet Take 10 mg by mouth daily Active fluticasone (FLONASE) 50 MCG/ACT spray Hazard 1 spray into both nostrils daily Active capsaicin (ZOSTRIX) 0.075 % creamIndication s:Erythromelalg ia Apply topically 3 times daily 60 g 3 8 Active NIFEdipine ER OSMOTIC (PROCARDIA XL) 30 MG 24 hr tablet Take 30 mg by mouth. 3 Active BYDUREON BCISE 2 MG/0.85ML auto-injector INJECT 2 MG UNDER THE SKIN ONCE WEEKLY Active rosuvastatin (CRESTOR) 10 MG tablet Take 10 mg by mouth daily. 4 Active cimetidine (TAGAMET) 400 MG tablet Take 400 mg by mouth. 4 Active ramelteon (ROZEREM) 8 MG tablet Take 8 mg by mouth. 4 Active cyclobenzaprine (FLEXERIL) 10 MG tablet Take 10 mg by mouth. 4 Active nystatin (MYCOSTATIN) 109175 UNIT/GM external cream Apply topically. 4 Active Melatonin 10 MG TABS tablet Take 10 mg by mouth nightly as needed for sleep. Active pregabalin (LYRICA) 50 MG capsule TAKE 1 CAPSULE BY MOUTH BETWEEN 5 AND 6 PM AND 1 CAPSULE BETWEEN 9-10 PM Active topiramate (TOPAMAX) 50 MG tablet TAKE 2 TABLET BY MOUTH EVERY MORNING AND 3 TABLET BY MOUTH EVERY NIGHT AT BEDTIME 4 Active Social History Tobacco Use Types Packs/Day Years Used Date Smoking Tobacco: Former Cigarettes 1 17 1 - 1996 Smokeless Tobacco: Never Alcohol Use Standard Drinks/Week Comments No 0 (1 standard drink = 0.6 oz pur e alcohol) PHQ-2 Answer Date Recorded PHQ-2 Score 0 03/19/2024 Adolescent Education Answer Date Record ed Getting School Help Needed Not on file 12/03 Comments No Sex and Gender Information Value Date Recorded Sex Assigned at Not on file Legal Sex Female 10:52 AM CDT Gender Identity Not on file Sexual Orientation Not on file Last Filed Vital Signs Vital Sign Reading Time Taken Comments Blood Pressure 125/84 03/19/2024 12:35 PM 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 Pulse 88 03/19/2024 12:35 PM AUTOMATIC RIVETING 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 Temperature 36.3 C (97.3 F) 10/25/2017 3:17 PM CDT Respiratory Rate 16 03/19/2024 12:35 PM AUTOMATIC RIVETING 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 Oxygen Saturation 95% 03/19/2024 12:35 PM AUTOMATIC RIVETING 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 Inhaled Oxygen Concentration - - Weight 113.9 kg (251 lb) 10/25/2017 3:17 PM CDT Height - - Body Mass Index - - Plan of Treatment Upcoming Encounters Date Type Department Care Team (Late st Contact Info) Description 03/20/2025 11:30 AM 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 RIVETING 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 Office Visit [facility] [address] [address] Kath Conti MD [address] [place] [id number] Health Maintenance Due Date Last Done Comments ADVANCE CARE PLANNING 1970 ANNUAL REVIEW OF HM ORDERS 1970 CT COLONOGRAPHY 1970 DIABETES SCREENING 1970 FIT 1970 FLEX SIG 1970 LIPID 1970 sDNA (Cologuard) 1970 PAP 08/11/1991 YEARLY PREVENTIVE VISIT 11/24/2023 11/23/2022 LUNG CANCER SCREENING 05/05/2024 05/05/2023, 015 INFLUENZA VACCINE (#1) 2024 , 11/29/2022, 12/25/2021, Additional history exists MAMMO SCREENING 04/18/2025 04/18/2023, 02/0 07/2023, 01/18/2022, Additional history exists DTAP/TDAP/TD VACCINE (3 - Td or Tdap) 08/19/2031 08/18/2021, 07/13/2011 COLONOSCOPY 10/04/2032 10/04/2022 COLORECTAL CANCER SCREENING 10/04/2032 HIV SCREENING Completed 07/19/2007 HEPATITIS C SCREENING Completed 02/04/2017 HEPATITIS B VACCINE Completed 05/14/2019, 12/07/2018, 11/03/2018 ZOSTER VACCINE Completed 03/20/2021, 12/29/2020 PNEUMOCOCCAL VACCINE 50+ YEARS Completed 08/18/2021, 11/03/2018 COVID-19 VACCINE Completed 12/29/2023, , 12/25/2021, Additional history exists PHQ-2 (once per calendar year) Completed 03/19/2024, 10/25/2017 HPV VACCINE (No Doses Required) Completed MENINGITIS VACCINE Aged Out No longer eligible based on patient's age to complete this topic [facility] [address] [facility] [place] [address] Care Teams Blood And Plasma Laboratory Assistant Relationship Specialty Start Date End Date Octaviano Tineo MD [address] [place] [address] PCP - General 10/25/17 Edvin Harper MD [address] [place], [place] [id number] Neurology 10/25/17 Kath Conti MD [address] [place] [id number] Physician Neurology 11/08/23 Kath Conti MD [address] [place] [address] [phone] Assigned Neuroscience Provider 04/05/24
[2024-11-11 16:10] VITALS: BP 136/90; PULSE 110; RESP 20; TEMP 36.5; O2SAT 98; BMI 35.8
--- NOTE | 2024-11-11 18:07 | CRLHL7_ITS ---
For Patients: As a result of the Cures Act, medical imaging exams and procedure reports are released immediately into your electronic medical record. You may view this report before your referring provider. If you have questions, please contact your health care provider. INDICATION: Possible migration of spinal cord stimulator TECHNIQUE: Three views of the cervical spine FINDINGS/IMPRESSION: Anterior cervical fusion from C4 through C7 with plate and screw fixation from C 4 through C6. Posterior fusion from C5-T1. Neural stimulator leads at the level of C2 to C5. Dictated by Toya Wray MD @ 11/11/2024 7:17:22 PM (Electronically Signed)
--- NOTE | 2024-11-11 19:32 | ED.GENADULT ---
HPI - General Adult General Date Seen: 11/11/24 Chief complaint: Extremity Pain/Injury, Upper Stated complaint: Left pulsing shoulder pain Time Seen by Provider: 11/11/24 17:08 Source: patient Mode of arrival: ambulatory Limitations: no limitations History of Present Illness HPI narrative: Patient is a 54-year-old female presenting for left shoulder pain. She states she had a spinal stimulator placed in her neck on 10/10/2024. She states she woke up from the surgery and that is when she started having some left shoulder pain. Pain has been persistent ever since. Has tried steroids prescribed by her surgical team without any improvement in her symptoms. She states the neck pain has been doing well since then but the shoulder pain will not go way. She feels like her shoulder muscles are always tensed up and shabnam. She has tried muscle relaxers without any improvement in her symptoms. Has also tried [id number] medication and narcotics prescribed by her providers. Nothing seems to make the pain better. No other injuries noted. Denies injuring the shoulder as far as she is aware of Related Data Home Medications ?Medication ?Instructions ?Recorded ?Confirmed Tagamet 02/14/22 04/26/22 clobetasol-emollient 0.05 % topical 02/14/22 04/26/22 topical cream cyclobenzaprine 10 mg tablet mg 02/14/22 04/26/22 duloxetine 30 mg capsule,delayed mg PO 02/14/22 04/26/22 release duloxetine 60 mg capsule,delayed mg PO 02/14/22 04/26/22 release exenatide microspheres 2 mg/0.85 mg subcut 02/14/22 04/26/22 mL subcutaneous auto-injector (Anai Kebede) fluconazole 02/14/22 04/26/22 hydromorphone 4 mg tablet mg 02/14/22 04/26/22 lisinopril 10 mg tablet mg 02/14/22 04/26/22 melatonin 02/14/22 04/26/22 ondansetron 4 mg disintegrating mg 02/14/22 04/26/22 tablet pregabalin 50 mg capsule mg 02/14/22 04/26/22 rosuvastatin 5 mg tablet mg 02/14/22 04/26/22 topiramate 50 mg tablet mg 02/14/22 04/26/22 cephalexin 500 mg tablet 500 mg PO TID 04/26/22 11/11/24 cimetidine 400 mg tablet 400 mg PO BID 11/11/24 11/11/24 diphenhydramine HCl 25 mg tablet PO 11/11/24 (Banophen) dulaglutide 0.75 mg/0.5 mL 0.75 mg subcut 11/11/24 subcutaneous pen injector (Trulicity) lidocaine 5 % topical ointment topical 11/11/24 methylprednisolone 4 mg tablets in mg PO DIRECTED 11/11/24 a dose pack nifedipine 30 mg tablet,extended 30 mg PO DAILY 11/11/24 11/11/24 release 24 hr rosuvastatin 10 mg tablet 10 mg PO QPM 11/11/24 11/11/24 Allergies Allergy/AdvReac Type Severity Reaction Status Date / Time penicillin V Allergy Mild Rash Verified 04/26/22 14:36 adhesive Allergy Unknown Verified 04/26/22 14:36 Esomeprazole Allergy Severe throat Uncoded 04/26/22 14:36 swelling Propanolol Allergy Severe seizure Uncoded 04/26/22 14:36 Fentanyl Allergy Intermediate Swelling Uncoded 04/26/22 14:36 of Lip/Tongue/Throat Hydrocodone Allergy Intermediate Uncoded 04/26/22 14:36 HYDROCODONE-ACETAMINOPHEN Allergy Intermediate itching Uncoded 04/26/22 14:36 Metronidazole Allergy Intermediate vomitting Uncoded 04/26/22 14:36 Oxycodone Allergy Intermediate Uncoded 04/26/22 14:36 ASPIRIN, BUFFERED Allergy Unknown Uncoded 04/26/22 14:36 CANINE PROTEIN CONTAINING Allergy Unknown Uncoded 04/26/22 14:36 PRODUCTS CATS (FUR, DANDER, SALIVA) Allergy Unknown Uncoded 04/26/22 14:36 DUST MITES Allergy Unknown Uncoded 04/26/22 14:36 HYALURONATE Allergy Unknown Uncoded 04/26/22 14:36 Maple flavor Allergy Unknown Uncoded 04/26/22 14:36 Metformin Allergy Unknown Uncoded 04/26/22 14:36 NITROIMIDAZOLES Allergy Unknown Uncoded 04/26/22 14:36 OXYCODONE-ACETAMINOPHEN Allergy Unknown Uncoded 04/26/22 14:36 Penicillin Allergy Unknown Uncoded 04/26/22 14:36 Primidone Allergy Unknown Uncoded 04/26/22 14:36 Propranolol Allergy Unknown Uncoded 02/13/23 14:36 Ragweed pollen Allergy Unknown Uncoded 04/26/22 14:36 SUNLIGHT Allergy Unknown Uncoded 04/26/22 14:36 Review of Systems Narrative: Pertinent systems reviewed and were negative unless stated in HPI PFSH PFS Medical History Occult blood in stools ?R19.5 - Other fecal abnormalities (ICD-10) Cyclic vomiting syndrome ?R11.15 - Cyclical vomiting syndrome unrelated to migraine (ICD-10) Surgical History History of tubal ligation ?Z98.51 - Tubal ligation status (ICD-10) History of lumbar fusion ?Z98.1 - Arthrodesis status (ICD-10) History of surgery ?Z98.890 - Other specified postprocedural states (ICD-10) History of hemorrhoidectomy ?Z98.890 - Other specified postprocedural states (ICD-10) History of bilateral oophorectomy ?Z90.722 - Acquired absence of ovaries, bilateral (ICD-10) History of shoulder surgery ?Z98.890 - Other specified postprocedural states (ICD-10) History of breast lump/mass excision ?Z98.890 - Other specified postprocedural states (ICD-10) History of nasal septoplasty ?Z98.890 - Other specified postprocedural states (ICD-10) History of bilateral breast reduction surgery ?Z98.890 - Other specified postprocedural states (ICD-10) History of foot surgery ?Z98.890 - Other specified postprocedural states (ICD-10) History of abdominal hysterectomy ?Z90.710 - Acquired absence of both cervix and uterus (ICD-10) Family History Father Stroke High blood pressure High cholesterol Heart disease Mother Osteoporosis High blood pressure Maternal Grandmother High blood pressure Osteoporosis Paternal Grandfather Osteoporosis Stroke High cholesterol High blood pressure Brother Coronary artery disease High blood pressure Diabetes Sister Heart disease High blood pressure Diabetes Social History Narrative: Unemployed. . Nonsmoker. No alcohol use. Smoking Status: Never smoker Do you use any of these nicotine containing products: None Second hand tobacco smoke exposure: No How often do you have a drink containing alcohol: never How often do you have six or more drinks on one occasion: Never AUDIT-C Alcohol total score: 0 Non-prescribed substance use: denies use service: No Exam Narrative: Exam Narrative: Const: Well-nourished, Well-developed, in mild distress the did become severe distress when I did press on the anterior portion of her left shoulder. That caused severe acute pain. Eyes: PERRL, no conjunctival injection, and symmetrical lids HENT: Atraumatic external nose and ears. Moist mucous membranes. Neck: Symmetric, trachea midline, No thyromegaly. CVS: RRR, No murmurs or gallops. Peripheral pulses 2+ and equal in all extremities RESP: Unlabored respiratory effort. Clear to auscultation bilaterally. GI: Nontender/Nondistended, No rebound or guarding. MSK:Extremities w/o deformity, Normal Active ROM Skin: Warm, Dry. No rashes or lesions. Neuro: Normal Muscle tone, No focal neurological deficits. Psych: Awake, Alert, & Oriented x3. Appropriate mood and affect. Const: Vital Signs, click to edit/add: Vital Signs - 24 hr 11/11/24 16:10 Temperature 97.7 F Pulse Rate [Pulse Oximeter] 110 H Respiratory Rate 20 Blood Pressure [Ri ght Upper Arm] 136/90 H Pulse Oximetry 98 Oxygen Delivery Me thod Room Air Course Vital Signs Vital signs: Initial Vital Signs Temperature 97.7 F 11/11/24 16:10 Temperature Source Temporal Artery Scan 11/11/24 16:10 Pulse Rate 110 H 11/11/24 16:10 Respiratory Rate 20 11/11/24 16:10 Blood Pressure 136/90 H 11/11/24 16:10 Blood Pressure Mean 105 11/11/24 16:10 Pulse Oximetry 98 11/11/24 16:10 Oxygen Delivery Method Room Air 11/11/24 16:10 Vital Signs Temperature 97.7 F 11/11/24 16:10 Pulse Rate 110 H 11/11/24 16:10 Respiratory Rate 20 11/11/24 16:10 Blood Pressure 136/90 H 11/11/24 16:10 Pulse Oximetry 98 11/11/24 16:10 Oxygen Delivery Method Room Air 11/11/24 16:10 Temperature 97.7 F 11/11/24 16:10 Pulse Rate 110 H 11/11/24 16:10 Respiratory Rate 20 11/11/24 16:10 Blood Pressure 136/90 H 11/11/24 16:10 Pulse Oximetry 98 11/11/24 16:10 Oxygen Delivery Method Room Air 11/11/24 16:10 Medical Decision Making MDM Narrative Medical decision making narrative: Patient is a 54-year-old female presenting to the emergency department for shoulder pain. Considering the symptoms started right after she got a spinal stimulator in there is no trauma I am curious if the pain is being caused by the spinal stimulator based on her description of her muscles tensing up. I did speak to the on-call PA [facility] spine team who recommends doing a cervical spine x-ray and to have her follow up. He also recommended she call to get the a settings adjusted. Before patient went to x-ray she did tried turning off the stimulator and that caused all pain her shoulder to resolve. She turn the stimulator back on pain came back. She turn the stimulator back off 1 more time and pain again went away. At this point it clearly appears that the stimulator is causing the shoulder pain. Her x-ray shows the stimulator leads are at C2 through C5 which is consistent with where her pain was in the shoulder. At this time she is safe for discharge. She agrees to this plan Discharge Plan Discharge Clinical Impression: Left shoulder pain Qualifiers: Chronicity: unspecified Qualified Code(s): M25.512 - Pain in left shoulder Patient Disposition: Home, Self-Care Condition: Improved Additional Instructions: I recommend keeping the stimulator turned off until you follow-up with your surgeon. Return for new or worsening symptoms Prescriptions: No Action cephalexin 500 mg tablet 500 mg PO TID cyclobenzaprine 10 mg tablet lisinopril 10 mg tablet Patient Comments: TAKE 1 TABLET BY MOUTH EVERY DAY hydromorphone 4 mg tablet ondansetron 4 mg tablet,disintegrating clobetasol-emollient 0.05 % cream TOPICAL Patient Comments: USE EVERY 3RD NIGHT rosuvastatin 5 mg tablet topiramate 50 mg tablet Patient Comments: TAKE 1 TABLET BY MOUTH EVERY MORNING AND 3 TABLETS BY MOUTH EVERY EVENING duloxetine 30 mg capsule,delayed release(DR/EC) PO Patient Comments: TAKE 1 CAPSULE BY MOUTH DAILY WITH 60 MG duloxetine 60 mg capsule,delayed release(DR/EC) PO Patient Comments: TAKE 1 CAPSULE BY MOUTH DAILY WITH 30 MG DOSE pregabalin 50 mg capsule Patient Comments: TAKE 1 CAPSULE BY MOUTH DAILY AT 5-6 PM AND 1 CAPSULE AT 9-10 PM Bydureon BCise 2 mg/0.85 mL auto-injector SUBCUT Patient Comments: INJECT 0.85 ML SUBCUTANEOUS ONCE WEEKLY Tagamet fluconazole melatonin nifedipine 30 mg tablet extended release 24hr 30 mg PO DAILY cimetidine 400 mg tablet 400 mg PO BID diphenhydramine HCl [Banophen] 25 mg tablet PO methylprednisolone 4 mg tablets,dose pack PO DIRECTED rosuvastatin 10 mg tablet 10 mg PO QPM lidocaine 5 % ointment topical Trulicity 0.75 mg/0.5 mL pen injector 0.75 mg subcut Follow Up/Referrals: Octaviano Tineo MD [Primary Care Provider, Family Practice] Stand Alone Forms: [facility] Info Instructions
== END 2024-11-11 19:47 | disposition home or self-care (01) ==
PROVIDERS: Emergency Provider Student in an Organized Health Care Education/Training Program; PCP Surgery
DX: M25.512 Pain in left shoulder (principal)
CPT/HCPCS: 72040; 99283